=== PATIENT | male | born 1960 | race Two or more races ===

== ENCOUNTER 2018-01-17 10:50 | Inpatient (IN) | payer OTHER ==
[2018-01-17] MEDS ORDERED: CEFTRIAXONE 1,000 MG in DEXTROSE 5%-WATER - 50 ML IVPB ONE (12:32)
[2018-01-17 12:35] LABS: ALBUMIN 3.1 g/dl (3.5-5.0); ALK PHOS 126 U/L (32-92); ANION GAP 11 MMOL/L (8-16); BILIRUBIN,TOTAL 0.4 mg/dl (0.2-1.0); BLOOD UREA NITROGEN 12 mg/dl (7-18); CHLORIDE 98 mmol/L (98-107); CO2 22 mmol/L (22-28); CREATININE 1.1 mg/dl (0.6-1.3); GLUCOSE,RANDOM 385 mg/dl (74-106); POTASSIUM 3.7 mmol/L (3.5-5.1); SGOT/AST 28 U/L (10-42); SGPT/ALT 35 U/L (10-40); SODIUM 131 mmol/L (136-145); TOT PROT 6.8 g/dl (6.4-8.3)
--- NOTE | 2018-01-17 12:48 | PDOC ---
History of Present Illness - General Chief Complaint: Respiratory Stated Complaint: cough Time Seen by Provider: 01/17/18 11:06 History Source: Patient Exam Limitations: No Limitations - History of Present Illness Initial Comments: 01/17/18 12:43 CHIEF COMPLAINT: Fever, chills, cough, and right-sided pleuritic chest pain for 4 days HISTORY OF PRESENT ILLNESS: Patient is a 57-year-old man with a history of hypertension, diabetes, and asthma, who presents complaining of fever and cough with right-sided pleuritic chest pain. Patient states he has had recurrent pneumonia in the past. He is concerned that these symptoms feel the same. On he developed fever, chills, and sweats. He did not take his temperature. He saw his primary physician Dr. Tripathi on Thursday. Blood work and a chest x-ray was performed. He is waiting to get the results. He was started on azithromycin at that time. There are no GI symptoms. No nausea or vomiting. No diarrhea. Positive mild throat discomfort and ear congestion. REVIEW OF SYSTEMS: GENERAL/CONSTITUTIONAL: Positive fever and chills. No weight change. HEAD, EYES, EARS, NOSE AND THROAT: No visual symptoms. Positive ear congestion. Mild sore throat. CARDIOVASCULAR: Pleuritic Right anterior chest pain on coughing or on deep breath. No shortness of breath. RESPIRATORY: Positive cough. No sputum production. No hemoptysis. No shortness of breath. GASTROINTESTINAL: No nausea, vomiting, diarrhea or constipation. No rectal bleeding. GENITOURINARY: No dysuria, frequency, or change in urination. MUSCULOSKELETAL: No joint or muscle swelling or pain. No neck or back pain. SKIN AND BREASTS: No rash or easy bruising. NEUROLOGIC: No headache, vertigo, loss of consciousness, or loss of sensation. PSYCHIATRIC: No depression or anxiety. ENDOCRINE: No increased thirst. No abnormal weight change. HEMATOLOGIC/LYMPHATIC: No anemia, easy bleeding, or history of blood clots. ALLERGIC/IMMUNOLOGIC: No hives or skin allergy. No latex allergy. Past History - Past Medical History Allergies/Adverse Reactions: Allergies Allergy/AdvReac Type Severity Reaction Status Date / Time No Known Drug Allergies Allergy Verified 01/17/18 10:58 DUST AdvReac Uncoded 01/17/18 10:58 Home Medications: Ambulatory Orders Acetaminophen 650 mg PO Q6H PRN 01/17/18 Albuterol Sulfate Inhaler - [Ventolin Hfa Inhaler -] 2 inh PO TID 01/17/18 Amlodipine Besylate [Norvasc -] 5 mg PO DAILY 01/17/18 Atorvastatin Ca [Lipitor] 20 mg PO DAILY 01/17/18 Azithromycin 250 mg PO DAILY 01/17/18 Cyanocobalamin (Vitamin B-12) [Vitamin B-12] 1,000 mcg PO DAILY 01/17/18 Fluticasone Propionate 2 inh IH BID 01/17/18 Folic Acid 1 mg PO DAILY 01/17/18 Ibuprofen [Motrin -] 400 mg PO TID PRN 01/17/18 Ramipril [Altace] 5 mg PO DAILY 01/17/18 Anemia: No Asthma: Yes Cancer: No Cardiac Disorders: No CVA: No COPD: No CHF: No Dementia: No Diabetes: Yes GI Disorders: No Disorders: No HTN: Yes Hypercholesterolemia: No Liver Disease: No Seizures: No Thyroid Disease: No - Surgical History Abdominal Surgery: No Appendectomy: No Cardiac Surgery: No Cholecystectomy: No Lung Surgery: No Neurologic Surgery: No Orthopedic Surgery: No - Suicide/Smoking/Psychosocial Hx Smoking History: Unknown if ever smoked Have you smoked in the past 12 months: No Information on smoking cessation initiated: No Hx Alcohol Use: No Drug/Substance Use Hx: No Substance Use Type: None Hx Substance Use Treatment: No *Physical Exam - Vital Signs Last Vital Signs Temp Pulse Resp BP Pulse Ox 98.9 F 121 H 22 H 142/76 99 01/17/18 10:51 01/17/18 10:51 01/17/18 10:51 01/17/18 10:51 01/17/18 10:51 - Physical Exam Comments: 01/17/18 12:48 GENERAL: The patient is awake, alert, and fully oriented, in no acute distress. He speaks full sentences and has no respiratory distress. HEAD: Normal with no signs of trauma. EYES: Pupils equal, round and reactive to light, extraocular movements intact, sclera anicteric, conjunctiva clear. ENT: Ears normal, nares patent, oropharynx clear without exudates. Mucous membranes in the mouth are slightly dry. NECK: Normal range of motion, supple without lymphadenopathy, JVD, or masses. LUNGS: Expiratory rhonchi bilaterally, right greater than left. No crackles. No expiratory wheezes. Positive splinting with deep inspiration due to right anterior pleuritic chest pain. No chest wall tenderness. HEART: Regular rate and rhythm, normal S1 and S2 without murmur, rub or gallop. ABDOMEN: Soft, nontender, normoactive bowel sounds. No guarding, no rebound. No masses. EXTREMITIES: Normal range of motion, no edema. No clubbing or cyanosis. No cords, erythema, or tenderness. NEUROLOGICAL: Cranial nerves II through XII grossly intact. Normal speech, normal gait. PSYCH: Normal mood, normal affect. SKIN: Warm, Dry, normal turgor, no rashes or lesions noted. 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 He presents complaining of 4 days of fever, chills, cough with no significant sputum production, and right anterior pleuritic chest pain. He was seen by his primary physician Dr. Tripathi and started on azithromycin. He continues to get worse so he came to the emergency department. On examination, he appears comfortable. He has right anterior pleuritic pain and splinting with deep inspiration or coughing. His breath sounds are notable for rhonchi right greater than left. There are no crackles or wheezes. Laboratory studies are notable for increased white blood cell count to 13.9. Mild anemia with hemoglobin of 11.0. Chemistry is notable for mild hyponatremia at 131, and hyperglycemia at 385. No function is normal. Chest x-ray on Thursday was notable for chronic right middle lobe collapse, which has been present on prior films as long as 36 months ago. Today the chest x- ray looks worse with increased right sided infiltrate as well as new left-sided infiltrate. Impression: Community-acquired pneumonia in a patient with chronic right middle lobe collapse and prior episodes of pneumonia. The patients with this picture typically are at increased risk for chronic bronchiectasis. Patient has never had a pulmonary workup or a chest CT scan per his report. His last episode of pneumonia was 2 years ago. Plan: Admit for treatment of community acquired pneumonia. Patient had blood cultures done and was started on ceftriaxone and Levaquin. He may be at possible increased risk for Pseudomonas if he does in fact have bronchiectasis, so would culture sputum for bacterial culture and would get a CT scan of the chest tomorrow to evaluate for possible bronchiectasis in the right middle lobe. The Levaquin will cover pseudomonas, however, if he does in fact machine turner to have confirmed pseudomonas or if he does not respond well to Levaquin and ceftriaxone, consider ID consult for double pseudomonal coverage. Flu swab sent and pending. Patient will be admitted to a single room pending results. Laboratory Results - last 24 hr 01/17/18 01/17/18 01/17/18 12:03 12:03 12:03 WBC 13.9 H RBC 5.23 Hgb 11.0 L Hct 34.8 L MCV 66.6 L MCH 21.0 L MCHC 31.6 L RDW 16.5 H D Plt Count 421 D MPV 8.4 Absolute Neuts (auto) 11.6 Neutrophils % 83.8 H Lymphocytes % 7.0 L D Monocytes % 7.9 Eosinophils % 1.1 Basophils % 0.2 Sodium 131 L Potassium 3.7 Chloride 98 Carbon Dioxide 22 Anion Gap 11 BUN 12 Creatinine 1.1 Creat Clearance w eGFR > 60 Random Glucose 385 H* D Calcium 8.0 L Total Bilirubin 0.4 AST 28 D ALT 35 Alkaline Phosphatase 126 H Troponin I < 0.03 Total Protein 6.8 Albumin 3.1 L *DC/Admit/Observation/Transfer Diagnosis at time of Disposition: Community acquired bacterial pneumonia - Discharge Dispostion Condition at time of disposition: Stable Decision to Admit order: Yes Decision to Admit order Date/Time: 01/17/18 13:52 Mariano attending, discussed with [facility] for admission. - Referrals - Patient Instructions - Post Discharge Activity
[2018-01-17] MEDS ORDERED: SODIUM CHLORIDE 1,000 ML IV STA ×4 (12:50→20:37)
[2018-01-17 12:51] LABS: BASO % 0.2 % (0-2.0); EOS % 1.1 % (0-4.5); HEMATOCRIT 34.8 % (35.4-49); MCHC 31.6 g/dl (32.0-35.9); MEAN CELL VOLUME 66.6 fl (80-96); MEAN PLT VOLUME 8.4 fl (7.5-11.1); MONO % 7.9 % (3.8-10.2); NEUT % 83.8 % (42.8-82.8); PLATELET COUNT 421 K/MM3 (134-434); RBC 5.23 M/mm3 (4.00-5.60); RDW 16.5 % (11.9-15.9); WHITE BLOOD COUNT 13.9 K/mm3 (4.0-10.8)
[2018-01-17] MEDS ORDERED: Insulin (LOG) Aspart 100 UNITS/ML VIAL SQ ONE (12:51)
[2018-01-17] MEDS ORDERED: ACETAMINOPHEN 325 MG TABLET (FP) PO ONE (13:32)
[2018-01-17] MEDS ORDERED: IBUPROFEN 600 MG TABLET (FP) PO ONE ×2 (14:19→14:24)
[2018-01-17 14:35] LABS: ANION GAP 9 MMOL/L (8-16); BLOOD UREA NITROGEN 12 mg/dl (7-18); CALCIUM 7.4 mg/dl (8.4-10.2); CHLORIDE 101 mmol/L (98-107); CO2 20 mmol/L (22-28); POTASSIUM 3.6 mmol/L (3.5-5.1); SODIUM 130 mmol/L (136-145)
[2018-01-17] MEDS ORDERED: ALBUTEROL SO4 2.5/IPRATROPIUM 0.5 INH SOL 3 ML VIAL.NEB. NEB ONE ×2 (14:35→14:36)
[2018-01-17 14:46] LABS: GLUCOSE,RANDOM 322 mg/dl (74-106)
[2018-01-17 14:57] LABS: URINE APPEARANCE Clear; URINE BILIRUBIN Negative (NEGATIVE); URINE COLOR Yellow; URINE GLUCOSE (UA) 2+ (NEGATIVE); URINE KETONE Negative (NEGATIVE); URINE LEUK ESTERASE Negative (NEGATIVE); URINE NITRITE Negative (NEGATIVE); URINE PROTEIN 1+ (NEGATIVE); URINE UROBILINOGEN 0.2 (0.2-1.0)
--- NOTE | 2018-01-17 15:12 | HP ---
CHIEF COMPLAINT: Fever, cough, upper right chest pain PCP: Dr. Chaney HISTORY OF PRESENT ILLNESS: Patient is a 57-year-old man with a PMH significant for HTN, NIDDM, chronic right middle lobe collapse, and asthma, who presents complaining of fever and non-productive cough with right-sided pleuritic chest pain. Patient states he has had recurrent pneumonia in the past. He is concerned that these symptoms feel the same. On he developed fever, chills, and sweats. He did not take his temperature. He saw his primary physician Dr. Chaney on Thursday. Blood work and a chest x-ray was performed. He is waiting to get the results. He was started on azithromycin at that time. His right-sided chest pain and cough continued to worsen so he came to the ED today. There are no GI symptoms. No nausea or vomiting. No diarrhea. Positive mild throat discomfort and ear congestion. 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 Smoking: never Alcohol: no Drugs: no Family History: Allergies No Known Drug Allergies Allergy (Verified 01/17/18 10:58) DUST Adverse Reaction (Uncoded 01/17/18 10:58) Home Medications Medication Instructions Recorded Acetaminophen 650 mg PO Q6H PRN 01/17/18 Albuterol Sulfate Inhaler - 2 inh PO TID 01/17/18 [Ventolin Hfa Inhaler -] Amlodipine Besylate [Norvasc -] 5 mg PO DAILY 01/17/18 Atorvastatin Ca [Lipitor] 20 mg PO DAILY 01/17/18 Azithromycin 250 mg PO DAILY 01/17/18 Cyanocobalamin (Vitamin B-12) 1,000 mcg PO DAILY 01/17/18 [Vitamin B-12] Fluticasone Propionate 2 inh IH BID 01/17/18 Folic Acid 1 mg PO DAILY 01/17/18 Ibuprofen [Motrin -] 400 mg PO TID PRN 01/17/18 Ramipril [Altace] 5 mg PO DAILY 01/17/18 REVIEW OF SYSTEMS CONSTITUTIONAL: +fever, chills, malaise Absent: diaphoresis, generalized weakness, loss of appetite, weight change HEENT: Absent: rhinorrhea, nasal congestion, throat pain, throat swelling, difficulty swallowing, mouth swelling, ear pain, eye pain, visual changes CARDIOVASCULAR: Absent: chest pain, syncope, palpitations, irregular heart rate, lightheadedness , peripheral edema RESPIRATORY: +cough, upper right-side pleuritic-type chest pain Absent: shortness of breath, dyspnea with exertion, orthopnea, wheezing, stridor , hemoptysis GASTROINTESTINAL: Absent: abdominal pain, abdominal distension, nausea, vomiting, diarrhea, constipation, melena, hematochezia GENITOURINARY: Absent: dysuria, frequency, urgency, hesitancy, hematuria, flank pain, genital pain MUSCULOSKELETAL: Absent: myalgia, arthralgia, joint swelling, back pain, neck pain SKIN: Absent: rash, itching, pallor HEMATOLOGIC/IMMUNOLOGIC: Absent: easy bleeding, easy bruising, lymphadenopathy, frequent infections ENDOCRINE: Absent: unexplained weight gain, unexplained weight loss, heat intolerance, cold intolerance NEUROLOGIC: Absent: headache, focal weakness or paresthesias, dizziness, unsteady gait, seizure, mental status changes, bladder or bowel incontinence PSYCHIATRIC: Absent: anxiety, depression, suicidal or homicidal ideation, hallucinations. PHYSICAL EXAMINATION Vital Signs - 24 hr 01/17/18 01/17/18 01/17/18 10:51 12:55 14:18 Temperature 98.9 F 102.4 F H 101.2 F H Pulse Rate 121 H Pulse Rate [ 130 H 126 H Right] Respiratory 22 H 20 22 H Rate Blood Pressure 142/76 Blood Pressure 125/69 [Right Arm] O2 Sat by Pulse 99 98 97 Oximetry (%) GENERAL: Awake, alert, and fully oriented, ill appearing. HEAD: Normal with no signs of trauma. EYES: Pupils equal, round and reactive to light, extraocular movements intact, sclera anicteric, conjunctiva clear. No lid lag. EARS, NOSE, THROAT: Ears normal, nares patent, oropharynx clear without exudates. Dry mucous membranes. NECK: Normal range of motion, supple without lymphadenopathy, JVD, or masses. LUNGS: Expiratory wheezing heard anteriorly bilaterally; +coughing HEART: Regular rate and rhythm, S1 and S2 ABDOMEN: Soft, nontender, not distended, normoactive bowel sounds, no guarding, no rebound MUSCULOSKELETAL: Normal range of motion at all joints. No bony deformities or tenderness. No CVA tenderness. UPPER EXTREMITIES: 2+ pulses, warm, well-perfused. No cyanosis. No clubbing. No peripheral edema. LOWER EXTREMITIES: 2+ pulses, warm, well-perfused. No calf tenderness. No peripheral edema. NEUROLOGICAL: Cranial nerves II-XII intact. Normal speech. Laboratory Results - last 24 hr 01/17/18 01/17/18 01/17/18 12:03 12:03 12:03 WBC 13.9 H RBC 5.23 Hgb 11.0 L Hct 34.8 L MCV 66.6 L MCH 21.0 L MCHC 31.6 L RDW 16.5 H D Plt Count 421 D MPV 8.4 Absolute Neuts (auto) 11.6 Neutrophils % 83.8 H Lymphocytes % 7.0 L D Monocytes % 7.9 Eosinophils % 1.1 Basophils % 0.2 Sodium 131 L Potassium 3.7 Chloride 98 Carbon Dioxide 22 Anion Gap 11 BUN 12 Creatinine 1.1 Creat Clearance w eGFR > 60 Random Glucose 385 H* D Lactic Acid 2.5 H* Calcium 8.0 L Total Bilirubin 0.4 AST 28 D ALT 35 Alkaline Phosphatase 126 H Troponin I Total Protein 6.8 Albumin 3.1 L 01/17/18 01/17/18 12:03 14:18 WBC RBC Hgb Hct MCV MCH MCHC RDW Plt Count MPV Absolute Neuts (auto) Neutrophils % Lymphocytes % Monocytes % Eosinophils % Basophils % Sodium 130 L Potassium 3.6 Chloride 101 Carbon Dioxide 20 L Anion Gap 9 BUN 12 Creatinine 1.0 Creat Clearance w eGFR > 60 Random Glucose 322 H* Lactic Acid Calcium 7.4 L Total Bilirubin AST ALT Alkaline Phosphatase Troponin I < 0.03 Total Protein Albumin ASSESSMENT/PLAN 57 year-old man with a PMH significant for HTN, NIDDM, chronic right middle lobe collapse, recurrent pneumonia, and asthma. Admitted for severe sepsis secondary to community acquired pneumonia. Severe sepsis secondary to community-acquired pneumonia Asthma --bilateral infiltrates; meets severe sepsis criteria --repeat lactic acid trending up, give another 2L bolus NS --blood cultures collected and sent; flu negative --continue ceftriaxone, levofloxacin --duonebs q4h scheduled --titrate O2 to SpO2>93% --strict I&Os Chronic right middle lobe collapse --per Dr. Rivers, right middle lobe collapse seen on 02/04/15 CXR and on today's CXR --CT chest tomorrow (machine down today) --if bronchiectasis, or if does not respond well to ceftriaxone and levofloxacin, consider ID consult for double pseudomonal coverage --sputum culture ordered --pulmonary consult NIDDM Hyperglycemia --Novolog sliding scale coverage FEN Fluids: NS @ 100mL/hr Electrolytes: replete as indicated Nutrition: diabetic diet DVT prophylaxis: subq lovenox Dispo: continues to require inpatient care. Full code. Visit type - Emergency Visit Emergency Visit: Yes ED Registration Date: 01/17/18 Care time: The patient presented to the Emergency Department on the above date and was hospitalized for further evaluation of their emergent condition. - New Patient This patient is new to me today: Yes Date on this admission: 01/17/18 - Critical Care Critical Care patient: Yes Total Critical Care Time (in minutes): 60 Critical Care Statement: The care of this patient involved high complexity decision making to prevent further life threatening deterioration of the patient 's condition and/or to evaluate & treat vital organ system(s) failure or risk of failure.
[2018-01-17 15:41] LABS: EPI CELLS 1+ /HPF; URINE BACTERIA NONE SEEN /hpf (NEGATIVE); URINE RBC 0-2 /hpf (0-3); URINE WBC 0-2 (0-2)
[2018-01-17] MEDS ORDERED: ALBUTEROL SO4 2.5/IPRATROPIUM 0.5 INH SOL 3 ML VIAL.NEB. NEB SCH (16:00)
[2018-01-17] MEDS ORDERED: SODIUM CHLORIDE 1,000 ML IV SCH (16:30)
[2018-01-17 18:34] VITALS: BMI 33.3
[2018-01-17] MEDS ORDERED: ALBUTEROL SO4 2.5/IPRATROPIUM 0.5 INH SOL 3 ML VIAL.NEB. NEB STA (19:07)
[2018-01-17] MEDS: ALBUTEROL SO4 2.5/IPRATROPIUM 0.5 INH SOL 3 ML VIAL.NEB. NEB SCH (20:31)
[2018-01-17] MEDS ORDERED: INSULIN (NOVOLOG) ASPART 100 UNITS/ML 10ML VIAL ONE (22:03)
[2018-01-17] MEDS: INSULIN (NOVOLOG) ASPART 100 UNITS/ML 10ML VIAL SQ SCH (22:45)
[2018-01-18] MEDS ORDERED: guaiFENesin/CODEINE 10 ML UNIT-DOSE CUPS PO ONE (02:01)
[2018-01-18] MEDS: ALBUTEROL SO4 2.5/IPRATROPIUM 0.5 INH SOL 3 ML VIAL.NEB. NEB SCH ×6 (02:15→20:00)
--- NOTE | 2018-01-18 08:01 | PN ---
Physical Exam: SUBJECTIVE: Patient seen and examined, reports ongoing moist cough with shortness of breath, tmax 102.4, denies any chest pain. patient is ambulatory throughout nursing station, patient denies any dyspnea upon exertion. OBJECTIVE: patient is a 57 y/o male with a past medical history of HTN, NIDDM, chronic right middle lobe lung collapse, and asthma. patient was admitted from the emergency department for sepsis secondary to right middle lobe PNA. Vital Signs Period Temp Pulse Resp BP Sys/Baum Pulse Ox Last 24 Hr 98.9 F-102.4 F 98-139 17-22 120-142/56-76 97-99 GENERAL: The patient is awake, alert, and fully oriented, in no acute distress. HEAD: Normal with no signs of trauma. EYES: PERRL, extraocular movements intact, sclera anicteric, conjunctiva clear. No ptosis. ENT: Ears normal, nares patent, oropharynx clear without exudates, moist mucous membranes. NECK: Trachea midline, full range of motion, supple. LUNGS: right lower lobe diminished to base, crackles to right apex, persistent dry cough noted, no wheezes, no accessory muscle use. HEART: Regular rate and rhythm, S1, S2 without murmur, rub or gallop. ABDOMEN: Soft, nontender, nondistended, normoactive bowel sounds, no guarding, no rebound, no hepatosplenomegaly, no masses. EXTREMITIES: 2+ pulses, warm, well-perfused, no edema. NEUROLOGICAL: Cranial nerves II through XII grossly intact. Normal speech, steady gait noted. PSYCH: Normal mood, normal affect. SKIN: Warm, dry, normal turgor, no rashes or lesions noted Laboratory Results - last 24 hr CBC WBC 13.1 K/mm3 (4.0-10.8) H 01/18/18 07:30 RBC 4.82 M/mm3 (4.00-5.60) 01/18/18 07:30 Hgb 10.2 GM/dl (11.7-16.9) L 01/18/18 07:30 Hct 31.9 % (35.4-49) L 01/18/18 07:30 MCV 66.1 fl (80-96) L 01/18/18 07:30 MCH 21.2 pg (25.7-33.7) L 01/18/18 07:30 MCHC 32.1 g/dl (32.0-35.9) 01/18/18 07:30 RDW 16.2 % (11.9-15.9) H 01/18/18 07:30 Plt Count 387 K/MM3 (134-434) 01/18/18 07:30 MPV 8.0 fl (7.5-11.1) 01/18/18 07:30 Absolute Neuts (auto) 10.9 K/mm3 01/18/18 07:30 Neutrophils % No Result Required. 01/18/18 07:30 Neutrophils % (Manual) 82.0 % (42.8-82.8) 01/18/18 07:30 Band Neutrophils % 2.0 % (0-10) 01/18/18 07:30 Lymphocytes % No Result Required. 01/18/18 07:30 Lymphocytes % (Manual) 11.0 % (8-40) 01/18/18 07:30 Monocytes % 7.9 % (3.8-10.2) 01/17/18 12:03 Monocytes % (Manual) 4 % (3.8-10.2) 01/18/18 07:30 Eosinophils % 1.1 % (0-4.5) 01/17/18 12:03 Basophils % 0.2 % (0-2.0) 01/17/18 12:03 Metamyelocytes 1 % (0-2) 01/18/18 07:30 Platelet Estimate Slt increase 01/18/18 07:30 Polychromasia 1+ 01/18/18 07:30 Poikilocytosis 1+ 01/18/18 07:30 Anisocytosis 1+ 01/18/18 07:30 Ovalocytes 1+ 01/18/18 07:30 CMP Sodium 135 mmol/L (136-145) L 01/18/18 07:30 Potassium 3.5 mmol/L (3.5-5.1) 01/18/18 07:30 Chloride 105 mmol/L (98-107) 01/18/18 07:30 Carbon Dioxide 20 mmol/L (22-28) L 01/18/18 07:30 Anion Gap 10 MMOL/L (8-16) 01/18/18 07:30 BUN 8 mg/dl (7-18) 01/18/18 07:30 Creatinine 1.0 mg/dl (0.6-1.3) 01/18/18 07:30 Creat Clearance w eGFR > 60 (>60) 01/18/18 07:30 POC Glucometer 202 UNITS (80-120) 01/18/18 06:32 Random Glucose 211 mg/dl (74-106) H D 01/18/18 07:30 Lactic Acid 3.2 mmol/L (0.4-2.0) H* 01/18/18 07:30 Calcium 7.4 mg/dl (8.4-10.2) L 01/18/18 07:30 Magnesium 1.7 mg/dL (1.8-2.4) L 01/18/18 07:30 Total Bilirubin 0.6 mg/dl (0.2-1.0) 01/18/18 07:30 AST 39 U/L (10-42) D 01/18/18 07:30 ALT 32 U/L (10-40) 01/18/18 07:30 Alkaline Phosphatase 120 U/L (32-92) H 01/18/18 07:30 Troponin I < 0.03 ng/ml (0.00-0.06) 01/17/18 12:03 Total Protein 6.3 g/dl (6.4-8.3) L 01/18/18 07:30 Albumin 2.6 g/dl (3.5-5.0) L 01/18/18 07:30 Active Medications Generic Name Dose Route Start Last Admin Trade Name Freq PRN Reason Stop Dose Admin Acetaminophen 650 mg 01/17/18 15:08 Tylenol - PO Q6H PRN FEVER Albuterol/Ipratropium 1 amp 01/17/18 20:00 01/18/18 07:52 Duoneb - NEB 1 amp RQ4H [facility] Administration Amlodipine Besylate 5 mg 01/18/18 10:00 Norvasc - PO DAILY [facility] Atorvastatin Calcium 20 mg 01/18/18 22:00 Lipitor - PO HS [facility] Enoxaparin Sodium 40 mg 01/18/18 10:00 Lovenox - SQ DAILY [facility] Folic Acid 1 mg 01/18/18 10:00 Folic Acid - PO DAILY [facility] Levofloxacin 750 mg in 150 mls @ 100 mls/hr 01/18/18 10:00 Levaquin 750 Mg Premixed Ivpb - IVPB DAILY [facility] Protocol Sodium Chloride 1,000 mls @ 100 mls/hr 01/17/18 16:30 01/17/18 16:37 Normal Saline - IV 100 mls/hr ASDIR [facility]INE Administration Ceftriaxone Sodium 1 gm in 50 mls @ 100 mls/hr 01/18/18 10:00 Rocephin 1gm Ivpb (Pre-Docked) IVPB DAILY [facility] Protocol Insulin Aspart 0 units 01/17/18 22:00 01/17/18 22:45 Novolog Vial SQ Not Given ACHS [facility] Protocol Ramipril 5 mg 01/18/18 10:00 Altace - PO DAILY [facility] Microbiology 01/17/18 12:50 Nasopharyngeal Swab Influenza Types A,B Antigen - Final, negative 01/17/18 12:50 Nasopharyngeal Swab - Final, negative IMAGING cxr (01/17/18): congestive changes and right base infilitrate ASSESSMENT/PLAN: 1) Severe sepsis likely secondary to community-acquired pneumonia -pending blood, urine, sputum cultures and urine antigens - continue rocephin and levaquin day 1 - trend wbc and fever curve, repeat lactic acid this am 3.4, will continue IVF, repeat lactic acid at 12pm 2) pulm Right middle lob PNA asthma excerbation - failed outpatient therapy (zithromax), will continue levaquin and rocephin - start solumedrol 40mg tid with taper as appropriate - ct of chest pending - keep spo2 above 92% with supplemental O2 - appreciate pulmonary input 3) endo NIDDM Hyperglycemia - pending hgb a1c, -Novolog sliding scale coverage FEN Fluids: NS @ 100mL/hr Electrolytes: replete as indicated Nutrition: diabetic diet DVT prophylaxis: subq lovenox Visit type - Emergency Visit Emergency Visit: Yes ED Registration Date: 01/17/18 Care time: The patient presented to the Emergency Department on the above date and was hospitalized for further evaluation of their emergent condition. - New Patient This patient is new to me today: No - Critical Care Critical Care patient: No - Discharge Referral Referred to [facility] Med [facility] No
[2018-01-18 08:08] LABS: HEMATOCRIT 31.9 % (35.4-49); HEMOGLOBIN 10.2 GM/dl (11.7-16.9); MCH 21.2 pg (25.7-33.7); MCHC 32.1 g/dl (32.0-35.9); MEAN CELL VOLUME 66.1 fl (80-96); PLATELET COUNT 387 K/MM3 (134-434); RBC 4.82 M/mm3 (4.00-5.60); RDW 16.2 % (11.9-15.9); WHITE BLOOD COUNT 13.1 K/mm3 (4.0-10.8)
[2018-01-18 08:17] LABS: ALBUMIN 2.6 g/dl (3.5-5.0); ALK PHOS 120 U/L (32-92); ANION GAP 10 MMOL/L (8-16); BILIRUBIN,TOTAL 0.6 mg/dl (0.2-1.0); BLOOD UREA NITROGEN 8 mg/dl (7-18); CALCIUM 7.4 mg/dl (8.4-10.2); CHLORIDE 105 mmol/L (98-107); CO2 20 mmol/L (22-28); GLUCOSE,RANDOM 211 mg/dl (74-106); MAGNESIUM 1.7 mg/dL (1.8-2.4); POTASSIUM 3.5 mmol/L (3.5-5.1); SGOT/AST 39 U/L (10-42); SGPT/ALT 32 U/L (10-40); SODIUM 135 mmol/L (136-145); TOT PROT 6.3 g/dl (6.4-8.3)
[2018-01-18] MEDS ORDERED: MAGNESIUM SULFATE 2 GM in SODIUM CHLORIDE 100 ML IVPB ONE (08:47)
[2018-01-18] MEDS: ACETAMINOPHEN 325 MG TABLET (FP) PO PRN (08:59)
[2018-01-18] MEDS: RAMIPRIL 5 MG CAPSULE (FP) PO SCH (08:59)
[2018-01-18] MEDS: amLODIPine BESYLATE 5 MG TABLET (FP) PO SCH (09:00)
[2018-01-18] MEDS: FOLIC ACID 1 MG TABLET (FP) PO SCH (09:00)
[2018-01-18] MEDS: CEFTRIAXONE 1 GM/50 ML BAG IVPB SCH (09:01)
[2018-01-18] MEDS: guaiFENesin 600 MG TABLET.ER (FP) PO SCH ×2 (09:01→21:11)
[2018-01-18] MEDS: ENOXAPARIN NA (PORCINE) 40 MG/0.4 ML DISP.SYRIN SQ SCH (09:01)
[2018-01-18] MEDS: methylPREDNISolone NA SUCC 40 MG/1 ML VIAL IVPUSH SCH ×2 (09:01→19:01)
[2018-01-18] MEDS ORDERED: MAGNESIUM SULF 50% (8.12 MEQ/2 ML-1 GM VIAL) IVPB ONE (09:30)
[2018-01-18] MEDS ORDERED: MAGNESIUM SULFATE IN WATER 2 GM/50 ML IVPB IVPB ONE (09:30)
[2018-01-18] MEDS: INSULIN (NOVOLOG) ASPART 100 UNITS/ML 10ML VIAL SQ SCH ×4 (09:40→21:22)
[2018-01-18 09:49] LABS: ANISOCYTOSIS 1+; OVALOCYTE 1+; PLATELET ESTIMATE SLT INCREASE
[2018-01-18] MEDS ORDERED: CEFTRIAXONE 1 GM in DEXTROSE 5%-WATER - 50 ML IVPB SCH (10:00)
--- NOTE | 2018-01-18 10:37 | EKG ---
Test Reason : Blood Pressure : / mmHG Vent. Rate : 119 BPM Atrial Rate : 119 BPM P-R Int : 136 ms QRS Dur : 082 ms QT Int : 312 ms P-R-T Axes : 046 012 038 degrees QTc Int : 438 ms SINUS TACHYCARDIA OTHERWISE NORMAL ECG NO PREVIOUS ECGS AVAILABLE Confirmed by TATE CAGLE MD ([id number]) on 01/18/2018 10:36:58 AM Referred By: ROSA LOZA Confirmed By:TATE CAGLE MD
[2018-01-18] MEDS: FAMOTIDINE 20 MG TABLET PO SCH ×2 (11:53→21:11)
[2018-01-18] MEDS: SODIUM CHLORIDE 0.9%/KCL 20 MEQ/1,000 ML INFUS.BAG IV SCH (13:50)
[2018-01-18] MEDS ORDERED: AZITHROMYCIN IVPB 500 MG/250 ML BAG IVPB ONE (15:00)
[2018-01-18] MEDS ORDERED: INSULIN (NOVOLOG) ASPART 100 UNITS/ML 10ML VIAL ONE ×2 (16:42→21:18)
--- NOTE | 2018-01-18 16:49 | CON.PULM ---
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 Patient states he has had recurrent pneumonia in the past. He is concerned that these symptoms feel the same. On he developed fever, chills, and sweats he states he felt well on Thursday. He did not take his temperature. He saw his primary physician Dr. Tripathi on Thursday. Blood work and a chest x-ray was performed. He was started on azithromycin at that time. He came to ED because his symptoms progressed. There are no GI symptoms, no nausea or vomiting, no diarrhea. Positive mild throat discomfort and ear congestion. Patient is a poor informant likely due to mild language barrier. Denies recent travel or sick contacts. 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 No: AFIB Pulmonary: Yes: Asthma, Sleep Apnea (is likely ) Gastrointestinal: No: Ascites, GI Bleed Hepatobiliary: No: Cirrhosis Renal/: No: Renal Failure Heme/Onc: Yes: Anemia Psych: No: Addictions Endocrine: Yes: Diabetes Mellitus - Alcohol/Substance Use Hx Alcohol Use: No - Smoking History Smoking history: Never smoked Have you smoked in the past 12 months: No - Social History Usual Living Arrangement: With Spouse ADL: Independent Place of : Other History of Recent Travel: No Home Medications - Allergies Allergies/Adverse Reactions: Allergies Allergy/AdvReac Type Severity Reaction Status Date / Time No Known Drug Allergies Allergy Verified 01/17/18 10:58 DUST AdvReac Uncoded 01/17/18 10:58 - Home Medications Home Medications: Ambulatory Orders Acetaminophen 650 mg PO Q6H PRN 01/17/18 Albuterol Sulfate Inhaler - [Ventolin Hfa Inhaler -] 2 inh PO TID 01/17/18 Amlodipine Besylate [Norvasc -] 5 mg PO DAILY 01/17/18 Atorvastatin Ca [Lipitor] 20 mg PO DAILY 01/17/18 Azithromycin 250 mg PO DAILY 01/17/18 Cyanocobalamin (Vitamin B-12) [Vitamin B-12] 1,000 mcg PO DAILY 01/17/18 Fluticasone Propionate 2 inh IH BID 01/17/18 Folic Acid 1 mg PO DAILY 01/17/18 Ibuprofen [Motrin -] 400 mg PO TID PRN 01/17/18 Ramipril [Altace] 5 mg PO DAILY 01/17/18 Family Disease History - Family Disease History Family History: Unremarkable Review of Systems - Review of Systems Constitutional: reports: Fever, Loss of Appetite Eyes: denies: Blind Spots HENT: denies: Difficult Swallowing Neck: denies: Decreased ROM Cardiovascular: reports: Chest Pain (right anterior chest pain) Respiratory: reports: Cough, Exercise Intolerance, SOB, SOB on Exertion. denies : Hemoptysis Gastrointestinal: denies: Abdominal Pain Genitourinary: denies: Burning Breasts: reports: No Symptoms Reported Musculoskeletal: reports: No Symptoms Integumentary: reports: No Symptoms Neurological: reports: No Symptoms Endocrine: reports: Increased Thirst, Unexplained Weight Gain Hematology/Lymphatic: reports: No Symptoms Psychiatric: reports: No Symptoms Physical Exam Vital Sings: Vital Signs Temperature 98.0 F 01/18/18 13:00 Pulse Rate 118 H 01/18/18 13:00 Respiratory Rate 19 01/18/18 13:00 Blood Pressure 138/75 01/18/18 13:00 O2 Sat by Pulse Oximetry (%) 97 01/18/18 13:00 Constitutional: Yes: Anxious Eyes: Yes: EOM Intact HENT: Yes: Normocephalic Neck: Yes: Trachea Midline Cardiovascular: Yes: Tachycardia, S1, S2 Respiratory: Yes: Rales, Rhonchi Gastrointestinal: Yes: Normal Bowel Sounds, Abdomen, Obese Renal/: Yes: WNL Breast(s): Yes: WNL Musculoskeletal: Yes: WNL Extremities: Yes: WNL Edema: No Integumentary: Yes: WNL Neurological: Yes: Alert Labs: CBC, BMP 01/18/18 07:30 01/18/18 07:30 rest of labs reviewed Imaging - Results Chest X-ray: Report Reviewed, Image Reviewed EKG: Report Reviewed, Image Reviewed Problem List - Problems (1) Diabetes Code(s): E11.9 - TYPE 2 DIABETES MELLITUS WITHOUT COMPLICATIONS (2) Community acquired bacterial pneumonia Code(s): J15.9 - UNSPECIFIED BACTERIAL PNEUMONIA (3) Sepsis due to pneumonia Code(s): J18.9 - PNEUMONIA, UNSPECIFIED ORGANISM; A41.9 - SEPSIS, UNSPECIFIED ORGANISM (4) Anemia Code(s): D64.9 - ANEMIA, UNSPECIFIED (5) Lactic acid blood increased Code(s): R79.89 - OTHER SPECIFIED ABNORMAL FINDINGS OF BLOOD CHEMISTRY (6) Hypoalbuminemia Code(s): E88.09 - OTH DISORDERS OF PLASMA-PROTEIN METABOLISM, NEC (7) Hypomagnesemia Code(s): E83.42 - HYPOMAGNESEMIA (8) Hypocalcemia Code(s): E83.51 - HYPOCALCEMIA Assessment/Plan 57 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 Agree with panculture/empiric antibiotics/02 supplementation/bronchodilators/ isolation for now ppd/quant gold/hiv test/sputum for afb/culture and gram stain/ID consult. Of note is his anemia with microcytic indicies/hypoalbuminemia and rising lactic acid with poorly controlled diabetes. Will follow Farhan Espinal MD
[2018-01-18] MEDS: ATORVASTATIN CA 20 MG TABLET (FP) PO SCH (21:11)
[2018-01-18] MEDS: BUDESONIDE/FORMETEROL FUMARATE 80/4.5 mcg INHALER IH SCH (21:12)
[2018-01-19] MEDS: methylPREDNISolone NA SUCC 40 MG/1 ML VIAL IVPUSH SCH ×3 (02:00→17:30)
[2018-01-19] MEDS: ALBUTEROL SO4 2.5/IPRATROPIUM 0.5 INH SOL 3 ML VIAL.NEB. NEB SCH ×6 (03:38→22:12)
[2018-01-19] MEDS ORDERED: PT OWN MED DRAWER 7, Y5N ONE ×4 (04:20→22:10)
[2018-01-19] MEDS: INSULIN (NOVOLOG) ASPART 100 UNITS/ML 10ML VIAL SQ SCH ×4 (06:22→22:13)
[2018-01-19 08:07] LABS: BASO % 0.1 % (0-2.0); HEMATOCRIT 32.2 % (35.4-49); HEMOGLOBIN 9.8 GM/dl (11.7-16.9); LYMPH % 4.9 % (8-40); MCH 20.3 pg (25.7-33.7); MCHC 30.5 g/dl (32.0-35.9); MEAN CELL VOLUME 66.4 fl (80-96); MEAN PLT VOLUME 7.9 fl (7.5-11.1); MONO % 3.3 % (3.8-10.2); NEUT % 91.7 % (42.8-82.8); PLATELET COUNT 442 K/MM3 (134-434); RBC 4.85 M/mm3 (4.00-5.60); RDW 16.6 % (11.9-15.9); WHITE BLOOD COUNT 10.5 K/mm3 (4.0-10.8)
[2018-01-19 08:13] LABS: ANION GAP 9 MMOL/L (8-16); BLOOD UREA NITROGEN 15 mg/dl (7-18); CALCIUM 7.5 mg/dl (8.4-10.2); CHLORIDE 102 mmol/L (98-107); CO2 22 mmol/L (22-28); CREATININE 0.9 mg/dl (0.6-1.3); GLUCOSE,RANDOM 297 mg/dl (74-106); MAGNESIUM 2.3 mg/dL (1.8-2.4); PHOSPHOROUS 2.9 mg/dl (2.5-4.6); POTASSIUM 3.5 mmol/L (3.5-5.1); SODIUM 133 mmol/L (136-145)
[2018-01-19] MEDS: CEFTRIAXONE 1 GM/50 ML BAG IVPB SCH (10:15)
[2018-01-19] MEDS: amLODIPine BESYLATE 5 MG TABLET (FP) PO SCH (10:16)
[2018-01-19] MEDS: FAMOTIDINE 20 MG TABLET PO SCH ×2 (10:16→22:12)
[2018-01-19] MEDS: BUDESONIDE/FORMETEROL FUMARATE 80/4.5 mcg INHALER IH SCH ×2 (10:16→22:12)
[2018-01-19] MEDS: ENOXAPARIN NA (PORCINE) 40 MG/0.4 ML DISP.SYRIN SQ SCH (10:16)
[2018-01-19] MEDS: RAMIPRIL 5 MG CAPSULE (FP) PO SCH (10:16)
[2018-01-19] MEDS: AZITHROMYCIN IVPB 250 MG in DEXTROSE 5%-WATER - 250 ML IVPB SCH (10:16)
[2018-01-19] MEDS: FOLIC ACID 1 MG TABLET (FP) PO SCH (10:16)
[2018-01-19] MEDS: guaiFENesin 600 MG TABLET.ER (FP) PO SCH ×2 (10:16→22:12)
--- NOTE | 2018-01-19 10:22 | PN ---
Progress Note, Physician History of Present Illness: pulmonary alert,no distress,dyspnea improving - Current Medication List Current Medications: Active Medications Acetaminophen (Tylenol -) 650 mg PO Q6H PRN PRN Reason: FEVER Last Admin: 01/18/18 08:59 Dose: 650 mg Albuterol/Ipratropium (Duoneb -) 1 amp NEB RQ4H [facility] Last Admin: 01/19/18 06:21 Dose: 1 amp Amlodipine Besylate (Norvasc -) 5 mg PO DAILY [facility] Last Admin: 01/18/18 09:00 Dose: 5 mg Atorvastatin Calcium (Lipitor -) 20 mg PO HS [facility] Last Admin: 01/18/18 21:11 Dose: 20 mg Budesonide/Formoterol Fumarate (Symbicort 80/4.5mcg -) 2 puff IH BID [facility] Last Admin: 01/18/18 21:12 Dose: 2 puff Enoxaparin Sodium (Lovenox -) 40 mg SQ DAILY [facility] Last Admin: 01/18/18 09:01 Dose: 40 mg Famotidine (Pepcid -) 20 mg PO BID [facility] Last Admin: 01/18/18 21:11 Dose: 20 mg Folic Acid (Folic Acid -) 1 mg PO DAILY [facility] Last Admin: 01/18/18 09:00 Dose: 1 mg Guaifenesin (Mucinex -) 1,200 mg PO BID [facility] Last Admin: 01/18/18 21:11 Dose: 1,200 mg Guaifenesin/Codeine Phosphate (Robitussin Ac -) 10 ml PO HS PRN PRN Reason: COUGH Ceftriaxone Sodium (Rocephin 1gm Ivpb (Pre-Docked)) 1 gm in 50 mls @ 100 mls/ hr IVPB DAILY [facility]; Protocol Last Admin: 01/18/18 09:01 Dose: 100 mls/hr Potassium Chloride/Sodium Chloride (Ns+20 Meq Kcl -) 20 meq in 1,000 mls @ 100 mls/hr IV ASDIR [facility] Last Admin: 01/18/18 13:50 Dose: 100 mls/hr Azithromycin 250 mg/ Dextrose 250 mls @ 250 mls/hr IVPB DAILY [facility] Insulin Aspart (Novolog Vial) 0 units SQ ACHS [facility]; Protocol Last Admin: 01/19/18 06:22 Dose: 6 unit Methylprednisolone Sodium Succinate (Solu-Medrol -) 40 mg IVPUSH Q8H-IV [facility] Last Admin: 01/19/18 02:00 Dose: 40 mg Ramipril (Altace -) 5 mg PO DAILY [facility] Last Admin: 01/18/18 08:59 Dose: 5 mg - Objective Vital Signs: Vital Signs Temperature 98.1 F 01/19/18 06:00 Pulse Rate 111 H 01/19/18 06:00 Respiratory Rate 20 01/19/18 06:00 Blood Pressure 134/64 01/19/18 06:00 O2 Sat by Pulse Oximetry (%) 100 01/19/18 02:00 Constitutional: Yes: Well Nourished, Calm Eyes: Yes: WNL HENT: Yes: WNL Neck: Yes: WNL Cardiovascular: Yes: Regular Rate and Rhythm, S1, S2 Respiratory: Yes: CTA Bilaterally Gastrointestinal: Yes: Normal Bowel Sounds, Soft Extremities: Yes: WNL Edema: No Labs: CBC, BMP 01/19/18 07:32 01/19/18 07:32 Assessment/Plan Problem List - Problems (1) Diabetes Code(s): E11.9 - TYPE 2 DIABETES MELLITUS WITHOUT COMPLICATIONS (2) Community acquired bacterial pneumonia Code(s): J15.9 - UNSPECIFIED BACTERIAL PNEUMONIA (3) Sepsis due to pneumonia Code(s): J18.9 - PNEUMONIA, UNSPECIFIED ORGANISM; A41.9 - SEPSIS, UNSPECIFIED ORGANISM (4) Anemia Code(s): D64.9 - ANEMIA, UNSPECIFIED (5) Lactic acid blood increased Code(s): R79.89 - OTHER SPECIFIED ABNORMAL FINDINGS OF BLOOD CHEMISTRY (6) Hypoalbuminemia Code(s): E88.09 - OTH DISORDERS OF PLASMA-PROTEIN METABOLISM, NEC (7) Hypomagnesemia Code(s): E83.42 - HYPOMAGNESEMIA (8) Hypocalcemia Code(s): E83.51 - HYPOCALCEMIA Assessment/Plan PNEUMONIA OBESITY ASTHMA LIKELY SLEEP APNEA PLAN ABX O2 NEEDED INHALED BRONCHODILATORS STEROID TAPER SLEEP STUDIES OUTPATIENT DR DE JESUS
[2018-01-19] MEDS ORDERED: INSULIN (NOVOLOG) ASPART 100 UNITS/ML 10ML VIAL ONE (11:53)
[2018-01-19] MEDS: SODIUM CHLORIDE 0.9%/KCL 20 MEQ/1,000 ML INFUS.BAG IV SCH (12:55)
--- NOTE | 2018-01-19 15:15 | PN ---
Physical Exam: SUBJECTIVE: Patient seen and examined; symptomatically improved. Consults from specialty services noted. No new issues reported from overnight. No other issues. 10 sys ROS done and negative aside from HPI OBJECTIVE: Vital Signs Period Temp Pulse Resp BP Sys/Baum Pulse Ox Last 24 Hr 97.7 F-99.2 F 105-123 18-20 127-138/64-74 97-100 GENERAL: The patient is awake, alert, and fully oriented, in no acute distress. HEAD: Normal with no signs of trauma. EYES: PERRL, extraocular movements intact, sclera anicteric, conjunctiva clear. No ptosis. ENT: Ears normal, nares patent, oropharynx clear NECK: Trachea midline, full range of motion, supple. LUNGS: Breath sounds equal, clear to auscultation aside from RLL with some crackles HEART: Regular rate and rhythm, S1, S2 without murmur, rub or gallop. ABDOMEN: Soft, nontender, nondistended, normoactive bowel sounds, no guarding, no rebound, no hepatosplenomegaly, no masses. EXTREMITIES: 2+ pulses, warm, well-perfused, no edema. NEUROLOGICAL: Cranial nerves II through XII grossly intact. Normal speech PSYCH: Normal mood, normal affect. Laboratory Results - last 24 hr 01/18/18 01/18/18 01/18/18 16:38 17:35 21:16 WBC RBC Hgb Hct MCV MCH MCHC RDW Plt Count MPV Absolute Neuts (auto) Neutrophils % Lymphocytes % Monocytes % Eosinophils % Basophils % Sodium Potassium Chloride Carbon Dioxide Anion Gap BUN Creatinine Creat Clearance w eGFR POC Glucometer 288 287 Random Glucose Lactic Acid Calcium Phosphorus Magnesium HIV 1&2 Antibody Screen Negative HIV P24 Antigen Negative 01/19/18 01/19/18 01/19/18 06:07 07:32 07:32 WBC 10.5 RBC 4.85 Hgb 9.8 L Hct 32.2 L MCV 66.4 L MCH 20.3 L MCHC 30.5 L RDW 16.6 H Plt Count 442 H MPV 7.9 Absolute Neuts (auto) 9.7 Neutrophils % 91.7 H Lymphocytes % 4.9 L D Monocytes % 3.3 L Eosinophils % 0.0 D Basophils % 0.1 Sodium 133 L Potassium 3.5 Chloride 102 Carbon Dioxide 22 Anion Gap 9 BUN 15 Creatinine 0.9 Creat Clearance w eGFR > 60 POC Glucometer 252 Random Glucose 297 H D Lactic Acid Calcium 7.5 L Phosphorus 2.9 Magnesium 2.3 HIV 1&2 Antibody Screen HIV P24 Antigen 01/19/18 01/19/18 07:32 12:20 WBC RBC Hgb Hct MCV MCH MCHC RDW Plt Count MPV Absolute Neuts (auto) Neutrophils % Lymphocytes % Monocytes % Eosinophils % Basophils % Sodium Potassium Chloride Carbon Dioxide Anion Gap BUN Creatinine Creat Clearance w eGFR POC Glucometer 378 Random Glucose Lactic Acid 2.1 H Calcium Phosphorus Magnesium HIV 1&2 Antibody Screen HIV P24 Antigen Active Medications Generic Name Dose Route Start Last Admin Trade Name Freq PRN Reason Stop Dose Admin Acetaminophen 650 mg 01/17/18 15:08 01/18/18 08:59 Tylenol - PO 650 mg Q6H PRN Administration FEVER Albuterol/Ipratropium 1 amp 01/17/18 20:00 01/19/18 13:00 Duoneb - NEB 1 amp RQ4H [facility] Administration Amlodipine Besylate 5 mg 01/18/18 10:00 01/19/18 10:16 Norvasc - PO 5 mg DAILY [facility] Administration Atorvastatin Calcium 20 mg 01/18/18 22:00 01/18/18 21:11 Lipitor - PO 20 mg HS [facility] Administration Budesonide/Formoterol Fumarate 2 puff 01/18/18 22:00 01/19/18 10:16 Symbicort 80/4.5mcg - IH 2 puff BID [facility] Administration Enoxaparin Sodium 40 mg 01/18/18 10:00 01/19/18 10:16 Lovenox - SQ 40 mg DAILY [facility] Administration Famotidine 20 mg 01/18/18 10:15 01/19/18 10:16 Pepcid - PO 20 mg BID [facility] Administration Folic Acid 1 mg 01/18/18 10:00 01/19/18 10:16 Folic Acid - PO 1 mg DAILY [facility] Administration Guaifenesin 1,200 mg 01/18/18 10:00 01/19/18 10:16 Mucinex - PO 1,200 mg BID [facility] Administration Guaifenesin/Codeine Phosphate 10 ml 01/18/18 08:42 Robitussin Ac - PO HS PRN COUGH Ceftriaxone Sodium 1 gm in 50 mls @ 100 mls/hr 01/18/18 10:00 01/19/18 10:15 Rocephin 1gm Ivpb (Pre-Docked) IVPB 100 mls/hr DAILY [facility] Administration Protocol Potassium Chloride/Sodium Chloride 20 meq in 1,000 mls @ 100 mls/hr 01/18/18 11:45 01/19/18 12:55 Ns+20 Meq Kcl - IV 100 mls/hr ASDIR [facility] Administration Azithromycin 250 mg/ Dextrose 250 mls @ 250 mls/hr 01/19/18 10:00 01/19/18 10 :16 IVPB 250 mls/hr DAILY [facility] Administration Insulin Aspart 0 units 01/17/18 22:00 01/19/18 12:00 Novolog Vial SQ 10 unit ACHS [facility] Administration Protocol Insulin Detemir 5 units 01/19/18 15:15 Levemir Vial SQ DAILY@0800 [facility] Methylprednisolone Sodium Succinate 40 mg 01/18/18 10:00 01/19/18 10:15 Solu-Medrol - IVPUSH 40 mg Q8H-IV [facility] Administration Ramipril 5 mg 01/18/18 10:00 01/19/18 10:16 Altace - PO 5 mg DAILY [facility] Administration ASSESSMENT/PLAN: 1) Acute R-sided Pneumonia -ID and pulmonary are following; continue to follow their recs as documented. -Continue with current abx; doing well and tolerating -Final results of blood and sputum cx's pending; final Tb tests pending. Negative pneumococcal/legionella Ag; LA trended down. -WBC wnl today; afebrile. Will ambulate. If continues to improve consider DC soon. 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
[2018-01-19] MEDS: INSULIN (LEVEMIR) 100 UNITS/ML UNITS SQ SCH (16:15)
[2018-01-19] MEDS: ATORVASTATIN CA 20 MG TABLET (FP) PO SCH (22:12)
[2018-01-20] MEDS: methylPREDNISolone NA SUCC 40 MG/1 ML VIAL IVPUSH SCH ×2 (01:32→10:42)
[2018-01-20] MEDS: guaiFENesin/CODEINE 10 ML UNIT-DOSE CUPS PO PRN ×2 (01:55→23:32)
[2018-01-20] MEDS: ALBUTEROL SO4 2.5/IPRATROPIUM 0.5 INH SOL 3 ML VIAL.NEB. NEB SCH ×6 (01:55→21:30)
[2018-01-20] MEDS: INSULIN (NOVOLOG) ASPART 100 UNITS/ML 10ML VIAL SQ SCH ×4 (08:12→21:31)
[2018-01-20 08:22] LABS: BASO % 0.2 % (0-2.0); HEMATOCRIT 31.8 % (35.4-49); LYMPH % 6.6 % (8-40); MCHC 31.5 g/dl (32.0-35.9); MEAN CELL VOLUME 66.6 fl (80-96); MEAN PLT VOLUME 7.8 fl (7.5-11.1); MONO % 4.1 % (3.8-10.2); NEUT % 89.1 % (42.8-82.8); PLATELET COUNT 505 K/MM3 (134-434); RBC 4.78 M/mm3 (4.00-5.60); RDW 16.5 % (11.9-15.9)
[2018-01-20 08:29] LABS: ALBUMIN 2.7 g/dl (3.5-5.0); ALK PHOS 116 U/L (32-92); ANION GAP 10 MMOL/L (8-16); BILIRUBIN,TOTAL 0.5 mg/dl (0.2-1.0); BLOOD UREA NITROGEN 21 mg/dl (7-18); CALCIUM 8.2 mg/dl (8.4-10.2); CHLORIDE 99 mmol/L (98-107); CO2 26 mmol/L (22-28); CREATININE 0.9 mg/dl (0.6-1.3); POTASSIUM 4.4 mmol/L (3.5-5.1); SGOT/AST 47 U/L (10-42); SGPT/ALT 42 U/L (10-40); SODIUM 135 mmol/L (136-145); TOT PROT 6.5 g/dl (6.4-8.3)
--- NOTE | 2018-01-20 08:29 | PN ---
Physical Exam: SUBJECTIVE: Patient seen and examined, ambulatory at bedside, reports improvement of shortness of breath. OBJECTIVE: patient is a 57 y/o male with a past medical history of HTN, NIDDM, chronic right middle lobe lung collapse, and asthma. patient was admitted from the emergency department for sepsis secondary to right middle lobe PNA. Vital Signs Period Temp Pulse Resp BP Sys/Baum Pulse Ox Last 24 Hr 97.7 F-98.9 F 105-123 18-18 127-139/65-85 98-100 GENERAL: The patient is awake, alert, and fully oriented, in no acute distress. HEAD: Normal with no signs of trauma. EYES: PERRL, extraocular movements intact, sclera anicteric, conjunctiva clear. No ptosis. ENT: Ears normal, nares patent, oropharynx clear without exudates, moist mucous membranes. NECK: Trachea midline, full range of motion, supple. LUNGS: Breath sounds equal, dimininshed to right base, course rhonchi to bilateral apexes, no wheezes, no crackles, no accessory muscle use. HEART: Regular rate and rhythm, S1, S2 without murmur, rub or gallop. ABDOMEN: Soft, nontender, nondistended, normoactive bowel sounds, no guarding, no rebound, no hepatosplenomegaly, no masses. EXTREMITIES: 2+ pulses, warm, well-perfused, no edema. NEUROLOGICAL: Cranial nerves II through XII grossly intact. Normal speech, steady gait noted. . PSYCH: Normal mood, normal affect. SKIN: Warm, dry, normal turgor, no rashes or lesions noted Laboratory Results - last 24 hr 01/19/18 01/19/18 01/19/18 07:32 12:20 16:55 POC Glucometer 378 354 Lactic Acid 2.1 H 01/19/18 01/20/18 21:06 06:25 POC Glucometer 295 301 Lactic Acid CBC WBC 13.0 K/mm3 (4.0-10.8) H 01/20/18 07:20 RBC 4.78 M/mm3 (4.00-5.60) 01/20/18 07:20 Hgb 10.0 GM/dl (11.7-16.9) L 01/20/18 07:20 Hct 31.8 % (35.4-49) L 01/20/18 07:20 MCV 66.6 fl (80-96) L 01/20/18 07:20 MCH 21.0 pg (25.7-33.7) L 01/20/18 07:20 MCHC 31.5 g/dl (32.0-35.9) L 01/20/18 07:20 RDW 16.5 % (11.9-15.9) H 01/20/18 07:20 Plt Count 505 K/MM3 (134-434) H 01/20/18 07:20 MPV 7.8 fl (7.5-11.1) 01/20/18 07:20 Absolute Neuts (auto) 11.6 K/mm3 01/20/18 07:20 Neutrophils % 89.1 % (42.8-82.8) H 01/20/18 07:20 Neutrophils % (Manual) 82.0 % (42.8-82.8) 01/18/18 07:30 Band Neutrophils % 2.0 % (0-10) 01/18/18 07:30 Lymphocytes % 6.6 % (8-40) L D 01/20/18 07:20 Lymphocytes % (Manual) 11.0 % (8-40) 01/18/18 07:30 Monocytes % 4.1 % (3.8-10.2) 01/20/18 07:20 Monocytes % (Manual) 4 % (3.8-10.2) 01/18/18 07:30 Eosinophils % 0.0 % (0-4.5) 01/20/18 07:20 Basophils % 0.2 % (0-2.0) 01/20/18 07:20 Metamyelocytes 1 % (0-2) 01/18/18 07:30 Platelet Estimate Slt increase 01/18/18 07:30 Polychromasia 1+ 01/18/18 07:30 Poikilocytosis 1+ 01/18/18 07:30 Anisocytosis 1+ 01/18/18 07:30 Ovalocytes 1+ 01/18/18 07:30 CMP Sodium 135 mmol/L (136-145) L 01/20/18 07:20 Potassium 4.4 mmol/L (3.5-5.1) D 01/20/18 07:20 Chloride 99 mmol/L (98-107) 01/20/18 07:20 Carbon Dioxide 26 mmol/L (22-28) 01/20/18 07:20 Anion Gap 10 MMOL/L (8-16) 01/20/18 07:20 BUN 21 mg/dl (7-18) H 01/20/18 07:20 Creatinine 0.9 mg/dl (0.6-1.3) 01/20/18 07:20 Creat Clearance w eGFR > 60 (>60) 01/20/18 07:20 POC Glucometer 319 UNITS (80-120) 01/20/18 10:54 Random Glucose 325 mg/dl (74-106) H* 01/20/18 07:20 Hemoglobin A1c % 10.3 % (4.2-6.3) H 01/18/18 07:30 Lactic Acid 2.1 mmol/L (0.4-2.0) H 01/19/18 07:32 Calcium 8.2 mg/dl (8.4-10.2) L 01/20/18 07:20 Phosphorus 4.1 mg/dl (2.5-4.6) D 01/20/18 07:00 Magnesium 2.5 mg/dL (1.8-2.4) H 01/20/18 07:00 Total Bilirubin 0.5 mg/dl (0.2-1.0) 01/20/18 07:20 AST 47 U/L (10-42) H D 01/20/18 07:20 ALT 42 U/L (10-40) H D 01/20/18 07:20 Alkaline Phosphatase 116 U/L (32-92) H 01/20/18 07:20 Troponin I < 0.03 ng/ml (0.00-0.06) 01/17/18 12:03 Total Protein 6.5 g/dl (6.4-8.3) 01/20/18 07:20 Albumin 2.7 g/dl (3.5-5.0) L 01/20/18 07:20 Active Medications Generic Name Dose Route Start Last Admin Trade Name Freq PRN Reason Stop Dose Admin Acetaminophen 650 mg 01/17/18 15:08 01/18/18 08:59 Tylenol - PO 650 mg Q6H PRN Administration FEVER Albuterol/Ipratropium 1 amp 01/17/18 20:00 01/20/18 06:40 Duoneb - NEB Not Given RQ4H [facility] Amlodipine Besylate 5 mg 01/18/18 10:00 01/19/18 10:16 Norvasc - PO 5 mg DAILY [facility] Administration Atorvastatin Calcium 20 mg 01/18/18 22:00 01/19/18 22:12 Lipitor - PO 20 mg HS [facility] Administration Budesonide/Formoterol Fumarate 2 puff 01/18/18 22:00 01/19/18 22:12 Symbicort 80/4.5mcg - IH 2 puff BID [facility] Administration Enoxaparin Sodium 40 mg 01/18/18 10:00 01/19/18 10:16 Lovenox - SQ 40 mg DAILY [facility] Administration Famotidine 20 mg 01/18/18 10:15 01/19/18 22:12 Pepcid - PO 20 mg BID [facility] Administration Folic Acid 1 mg 01/18/18 10:00 01/19/18 10:16 Folic Acid - PO 1 mg DAILY [facility] Administration Guaifenesin 1,200 mg 01/18/18 10:00 01/19/18 22:12 Mucinex - PO 1,200 mg BID [facility] Administration Guaifenesin/Codeine Phosphate 10 ml 01/18/18 08:42 01/20/18 01:55 Robitussin Ac - PO 10 ml HS PRN Administration COUGH Ceftriaxone Sodium 1 gm in 50 mls @ 100 mls/hr 01/18/18 10:00 01/19/18 10:15 Rocephin 1gm Ivpb (Pre-Docked) IVPB 100 mls/hr DAILY [facility] Administration Protocol Potassium Chloride/Sodium Chloride 20 meq in 1,000 mls @ 100 mls/hr 01/18/18 11:45 01/19/18 12:55 Ns+20 Meq Kcl - IV 100 mls/hr ASDIR [facility] Administration Azithromycin 250 mg/ Dextrose 250 mls @ 250 mls/hr 01/19/18 10:00 01/19/18 10 :16 IVPB 250 mls/hr DAILY [facility] Administration Insulin Aspart 0 units 01/17/18 22:00 01/20/18 08:12 Novolog Vial SQ 10 unit ACHS [facility] Administration Protocol Insulin Detemir 5 units 01/19/18 15:15 01/19/18 16:15 Levemir Vial SQ 5 units DAILY@0800 [facility] Administration Methylprednisolone Sodium Succinate 40 mg 01/18/18 10:00 01/20/18 01:32 Solu-Medrol - IVPUSH 40 mg Q8H-IV [facility] Administration Ramipril 5 mg 01/18/18 10:00 01/19/18 10:16 Altace - PO 5 mg DAILY [facility] Administration Microbiology 01/17/18 12:03 Blood Culture - Preliminary Blood - Peripheral Venous NO GROWTH OBTAINED AFTER 72 HOURS, INCUBATION TO CONTINUE FOR 2 DAYS. 01/18/18 05:00 Gram Stain - Final Sputum - Expectorated Sputum Culture - Final Yeast Like Organism 01/17/18 12:03 Blood Culture - Preliminary Blood - Peripheral Venous NO GROWTH OBTAINED AFTER 72 HOURS, INCUBATION TO CONTINUE FOR 2 DAYS. 01/18/18 15:20 Gram Stain - Final Sputum - Expectorated Sputum Culture - Preliminary Yeast Like Organism 01/18/18 15:20 AFB Smear Concentration - Preliminary Sputum - Expectorated Direct Acid Fast Bacilli Smear - Final Mycobacterial Culture - Preliminary ASSESSMENT/PLAN: 1) Acute R-sided Pneumonia -ID and pulmonary are following; negative afb x 1, awaiting interforn gold testing -Continue with current abx; doing well and tolerating -Final results of blood and sputum cx's pending; final Tb tests pending. Negative pneumococcal/legionella Ag; LA trended down. -WBC slightly elevated, pt is on steroids: afebrile. 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 - New Patient This patient is new to me today: No - Critical Care Critical Care patient: No - Discharge Referral Referred to [facility] Med P.C.: No
[2018-01-20 08:58] LABS: GLUCOSE,RANDOM 325 mg/dl (74-106)
--- NOTE | 2018-01-20 10:06 | PN ---
Progress Note (short form) - Note Progress Note: ID Consult dictated 57 year old male admitted with R sided pneumonia Has had R sided atelectasis on CXRs dating back to at least 2014 No documented work up ( CT scan, bronchoscopy) ?Endobronchial lesion/ post-obstructive pneumonia Obtain CT chest Sputum c/s AFB ? Bronchoscopy Empiric tx post-obstructive pneumonia Zosyn
[2018-01-20] MEDS: INSULIN (LEVEMIR) 100 UNITS/ML UNITS SQ SCH (10:07)
[2018-01-20 10:18] LABS: MAGNESIUM 2.5 mg/dL (1.8-2.4); PHOSPHOROUS 4.1 mg/dl (2.5-4.6)
[2018-01-20] MEDS: AZITHROMYCIN IVPB 250 MG in DEXTROSE 5%-WATER - 250 ML IVPB SCH (10:30)
[2018-01-20] MEDS: CEFTRIAXONE 1 GM/50 ML BAG IVPB SCH (10:31)
[2018-01-20] MEDS ORDERED: PT OWN MED DRAWER 7, Y5N ONE ×2 (10:37→21:01)
[2018-01-20] MEDS: PIPERACILLIN/TAZOB 4.5 GM 4.5 GM/100 ML BAG IVPB SCH ×2 (10:41→17:00)
[2018-01-20] MEDS: BUDESONIDE/FORMETEROL FUMARATE 80/4.5 mcg INHALER IH SCH ×2 (10:41→21:30)
[2018-01-20] MEDS: ENOXAPARIN NA (PORCINE) 40 MG/0.4 ML DISP.SYRIN SQ SCH (10:41)
[2018-01-20] MEDS: guaiFENesin 600 MG TABLET.ER (FP) PO SCH ×2 (10:42→21:30)
[2018-01-20] MEDS: amLODIPine BESYLATE 5 MG TABLET (FP) PO SCH (10:42)
[2018-01-20] MEDS: RAMIPRIL 5 MG CAPSULE (FP) PO SCH (10:42)
[2018-01-20] MEDS: FAMOTIDINE 20 MG TABLET PO SCH ×2 (10:42→21:30)
[2018-01-20] MEDS: FOLIC ACID 1 MG TABLET (FP) PO SCH (10:46)
[2018-01-20] MEDS: SODIUM CHLORIDE 0.9%/KCL 20 MEQ/1,000 ML INFUS.BAG IV SCH (10:46)
--- NOTE | 2018-01-20 11:15 | CONS ---
DATE OF CONSULTATION: DATE OF DICTATION: 01/20/2018 HISTORY OF PRESENT ILLNESS: The patient is a 57-year-old diabetic male evaluated for pneumonia. He presented to the hospital on January 17, 2018, with 4-day history of worsening right-sided pleuritic type chest pain, cough productive of whitish sputum, fever, and chills. He had been seen as an outpatient by his primary care physician and was prescribed Zithromax without improvement. He presented to the emergency room where chest x-ray showed a right lower lobe infiltrate and atelectasis. He was noted to have fever 102.6 and an elevated white blood cell count as well as elevated lactic acid level. He was empirically treated with Levaquin and ceftriaxone. At the present time, he complains of cough productive of whitish sputum. He denies any hemoptysis. He has less pleuritic chest pain. His temperatures have improved on empiric antibiotic therapy. On review of his chest x-rays, patient has had evidence of right-sided atelectasis dating back to at least January of 2015. It is not clear whether he has had a workup for this condition. There is no documentation of CT scans or bronchoscopy. He denies TB exposure. PAST MEDICAL HISTORY: Positive for diabetes mellitus, hypertension, asthma, and recurrent pneumonia. ALLERGIES: No known allergies. MEDICATIONS: Ventolin, Norvasc, Lipitor, Motrin, Altace. SOCIAL HISTORY: He is originally from [place]. 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 He denies tobacco, alcohol, or illicit drug use. His HIV test is negative. LABORATORY DATA: White count 13.0, hematocrit 31.8, platelet count 505. Creatinine 0.9. Lactic acid 2.1, total bilirubin 0.5, alkaline phosphatase 116, AST 47. Urinalysis 0-2 white cells. HIV test negative. Cultures are pending. Influenza swab negative. Legionella antigen and pneumococcal antigen negative. PHYSICAL EXAMINATION: General: He is awake and alert. He is ambulatory. He is not acutely toxic-appearing. He is not acutely short of breath at rest. Vital signs: Temperature 97.7, blood pressure 133/83, pulse 105 and regular, respirations 18 per minute. HEENT: Sclerae anicteric. Heart: Heart sounds S1, S2. Lungs: Clear. Diminished breath sounds right side. Abdomen: Obese, soft, nontender. Extremities: Negative for edema. IMPRESSION: A 57-year-old male admitted with right-sided pneumonia with history of recurrent pneumonias. He has had right-sided atelectasis on chest x-rays dating back to at least January of 2015. He has had no documented workup for this (CT scan, bronchoscopy). I am concerned about the presence of an endobronchial lesion and postobstructive pneumonia. PLAN: Obtain CT scan of the chest, await sputum culture, obtain QuantiFERON sputum AFB, would consider bronchoscopy, empiric antibiotic coverage for postobstructive pneumonia with Zosyn 4.5 g IV piggyback every 8 hours. Thank you for the kind referral. MU QUINONES M.D. [id number]
--- NOTE | 2018-01-20 12:43 | PN ---
Progress Note (short form) - Note Progress Note: PULMONARY REMAINS ON ISOLATION MUCH IMPROVED AFEBRILE SPO2 99% R/A LES COUGH/NO CP SUGARS ARE STILL HIGH AFB X1 NEGATIVE ANICTERIC CLEAR B/L BREATH SOUNDS S1S2 OBESE BS+ NO EDEMA LABS/MEDS/NOTES/IMAGES REVIEWED CT CHEST PENDING RLL INFILTRATEE POORLY CONTROLLED DIABETES HTN BRONCHIAL ASTHMA CONTINUE CURRENT LINE OF TREATMENT GLYCEMIC CONTROL/BRONCHODILATORS/ANTIBIOTICS ISOLATION PER ID DISCONTINUE STEROIDS Farhan GARCÍA MD Problem List - Problems (1) Diabetes Code(s): E11.9 - TYPE 2 DIABETES MELLITUS WITHOUT COMPLICATIONS (2) Community acquired bacterial pneumonia Code(s): J15.9 - UNSPECIFIED BACTERIAL PNEUMONIA (3) Sepsis due to pneumonia Code(s): J18.9 - PNEUMONIA, UNSPECIFIED ORGANISM; A41.9 - SEPSIS, UNSPECIFIED ORGANISM (4) Anemia Code(s): D64.9 - ANEMIA, UNSPECIFIED (5) Lactic acid blood increased Code(s): R79.89 - OTHER SPECIFIED ABNORMAL FINDINGS OF BLOOD CHEMISTRY (6) Hypoalbuminemia Code(s): E88.09 - OTH DISORDERS OF PLASMA-PROTEIN METABOLISM, NEC (7) Hypomagnesemia Code(s): E83.42 - HYPOMAGNESEMIA (8) Hypocalcemia Code(s): E83.51 - HYPOCALCEMIA
[2018-01-20] MEDS ORDERED: INSULIN (NOVOLOG) ASPART 100 UNITS/ML 10ML VIAL ONE ×2 (16:48→21:27)
[2018-01-20] MEDS: ATORVASTATIN CA 20 MG TABLET (FP) PO SCH (21:30)
[2018-01-21] MEDS: PIPERACILLIN/TAZOB 4.5 GM 4.5 GM/100 ML BAG IVPB SCH (01:24)
[2018-01-21] MEDS ORDERED: INSULIN (LEVEMIR) 100 UNITS/ML UNITS SQ SCH (08:00)
[2018-01-21 08:10] LABS: HEMATOCRIT 31.2 % (35.4-49); HEMOGLOBIN 10.1 GM/dl (11.7-16.9); LYMPH % 12.6 % (8-40); MCH 21.3 pg (25.7-33.7); MCHC 32.3 g/dl (32.0-35.9); MEAN PLT VOLUME 7.5 fl (7.5-11.1); MONO % 6.9 % (3.8-10.2); NEUT % 80.5 % (42.8-82.8); PLATELET COUNT 506 K/MM3 (134-434); RBC 4.72 M/mm3 (4.00-5.60); RDW 16.5 % (11.9-15.9); WHITE BLOOD COUNT 14.4 K/mm3 (4.0-10.8)
[2018-01-21 08:15] LABS: ANION GAP 6 MMOL/L (8-16); BLOOD UREA NITROGEN 23 mg/dl (7-18); CALCIUM 7.8 mg/dl (8.4-10.2); CHLORIDE 101 mmol/L (98-107); CO2 28 mmol/L (22-28); GLUCOSE,RANDOM 205 mg/dl (74-106); MAGNESIUM 2.4 mg/dL (1.8-2.4); POTASSIUM 4.5 mmol/L (3.5-5.1); SODIUM 135 mmol/L (136-145)
[2018-01-21] MEDS ORDERED: PT OWN MED DRAWER 7, Y5N ONE ×2 (09:57→18:10)
[2018-01-21] MEDS: PIPERACILLIN/TAZOB 4.5 GM 4.5 GM in SODIUM CHLORIDE 100 ML IVPB SCH ×2 (10:00→18:23)
[2018-01-21] MEDS: INSULIN (NOVOLOG) ASPART 100 UNITS/ML 10ML VIAL SQ SCH ×4 (10:01→21:58)
[2018-01-21] MEDS: ALBUTEROL SO4 2.5/IPRATROPIUM 0.5 INH SOL 3 ML VIAL.NEB. NEB SCH ×4 (10:01→20:01)
[2018-01-21] MEDS: ENOXAPARIN NA (PORCINE) 40 MG/0.4 ML DISP.SYRIN SQ SCH (10:02)
[2018-01-21] MEDS: guaiFENesin 600 MG TABLET.ER (FP) PO SCH ×2 (10:02→21:56)
[2018-01-21] MEDS: BUDESONIDE/FORMETEROL FUMARATE 80/4.5 mcg INHALER IH SCH ×2 (10:03→21:56)
[2018-01-21] MEDS: amLODIPine BESYLATE 5 MG TABLET (FP) PO SCH (10:03)
[2018-01-21] MEDS: FAMOTIDINE 20 MG TABLET PO SCH ×2 (10:03→21:56)
[2018-01-21] MEDS: RAMIPRIL 5 MG CAPSULE (FP) PO SCH (10:03)
[2018-01-21] MEDS: FOLIC ACID 1 MG TABLET (FP) PO SCH (10:03)
--- NOTE | 2018-01-21 10:08 | PN ---
Progress Note, Physician History of Present Illness: Awake, alert OOB in chair No complaints Denies chest pain/ dyspnea No c/o fever/ chills Dry cough noted - Current Medication List Current Medications: Active Medications Acetaminophen (Tylenol -) 650 mg PO Q6H PRN PRN Reason: FEVER Last Admin: 01/18/18 08:59 Dose: 650 mg Albuterol/Ipratropium (Duoneb -) 1 amp NEB RQID [facility] Last Admin: 01/21/18 10:01 Dose: 1 amp Amlodipine Besylate (Norvasc -) 5 mg PO DAILY [facility] Last Admin: 01/21/18 10:03 Dose: 5 mg Atorvastatin Calcium (Lipitor -) 20 mg PO HS [facility] Last Admin: 01/20/18 21:30 Dose: 20 mg Budesonide/Formoterol Fumarate (Symbicort 80/4.5mcg -) 2 puff IH BID [facility] Last Admin: 01/21/18 10:03 Dose: 2 puff Enoxaparin Sodium (Lovenox -) 40 mg SQ DAILY [facility] Last Admin: 01/21/18 10:02 Dose: 40 mg Famotidine (Pepcid -) 20 mg PO BID [facility] Last Admin: 01/21/18 10:03 Dose: 20 mg Folic Acid (Folic Acid -) 1 mg PO DAILY [facility] Last Admin: 01/21/18 10:03 Dose: 1 mg Guaifenesin (Mucinex -) 1,200 mg PO BID [facility] Last Admin: 01/21/18 10:02 Dose: 1,200 mg Piperacillin Sod/Tazobactam (Sod 4.5 gm/ Sodium Chloride) 100 mls @ 200 mls/hr IVPB Q8H-IV [facility]; Protocol Insulin Aspart (Novolog Vial) 0 units SQ ACHS [facility]; Protocol Last Admin: 01/21/18 10:01 Dose: 4 unit Insulin Detemir (Levemir Vial) 10 units SQ DAILY@0800 [facility] Last Admin: 01/21/18 10:02 Dose: 10 units Ramipril (Altace -) 5 mg PO DAILY [facility] Last Admin: 01/21/18 10:03 Dose: 5 mg - Objective Vital Signs: Vital Signs Temperature 99.2 F 01/21/18 06:00 Pulse Rate 86 01/21/18 06:00 Respiratory Rate 18 11/08/18 06:00 Blood Pressure 139/78 11/08/18 06:00 O2 Sat by Pulse Oximetry (%) 97 01/21/18 06:00 Constitutional: Yes: No Distress Eyes: Yes: Conjunctiva Clear Cardiovascular: Yes: Regular Rate and Rhythm, S1, S2 Respiratory: Yes: CTA Bilaterally Gastrointestinal: Yes: Normal Bowel Sounds, Soft. No: Tenderness Edema: No Labs: CBC, BMP 01/21/18 07:37 01/21/18 07:37 Assessment/Plan RML consolidation/ atelectatic lung ? post obstructive Await c/s, AFB Continue empiric zosyn Bronchoscopy per pulmonary
--- NOTE | 2018-01-21 10:42 | PN ---
Progress Note, Physician History of Present Illness: pulmonary alert,feeling better,less dyspneic, chest ct RML consolidation/atelectasis - Current Medication List Current Medications: Active Medications Acetaminophen (Tylenol -) 650 mg PO Q6H PRN PRN Reason: FEVER Last Admin: 01/18/18 08:59 Dose: 650 mg Albuterol/Ipratropium (Duoneb -) 1 amp NEB RQID [facility] Last Admin: 01/21/18 10:01 Dose: 1 amp Amlodipine Besylate (Norvasc -) 5 mg PO DAILY [facility] Last Admin: 01/21/18 10:03 Dose: 5 mg Atorvastatin Calcium (Lipitor -) 20 mg PO HS [facility] Last Admin: 01/20/18 21:30 Dose: 20 mg Budesonide/Formoterol Fumarate (Symbicort 80/4.5mcg -) 2 puff IH BID [facility] Last Admin: 01/21/18 10:03 Dose: 2 puff Enoxaparin Sodium (Lovenox -) 40 mg SQ DAILY [facility] Last Admin: 01/21/18 10:02 Dose: 40 mg Famotidine (Pepcid -) 20 mg PO BID [facility] Last Admin: 01/21/18 10:03 Dose: 20 mg Folic Acid (Folic Acid -) 1 mg PO DAILY [facility] Last Admin: 01/21/18 10:03 Dose: 1 mg Guaifenesin (Mucinex -) 1,200 mg PO BID [facility] Last Admin: 01/21/18 10:02 Dose: 1,200 mg Piperacillin Sod/Tazobactam (Sod 4.5 gm/ Sodium Chloride) 100 mls @ 200 mls/hr IVPB Q8H-IV [facility]; Protocol Insulin Aspart (Novolog Vial) 0 units SQ ACHS [facility]; Protocol Last Admin: 01/21/18 10:01 Dose: 4 unit Insulin Detemir (Levemir Vial) 10 units SQ DAILY@0800 [facility] Last Admin: 01/21/18 10:02 Dose: 10 units Ramipril (Altace -) 5 mg PO DAILY [facility] Last Admin: 01/21/18 10:03 Dose: 5 mg - Objective Vital Signs: Vital Signs Temperature 99.2 F 01/21/18 06:00 Pulse Rate 86 01/21/18 06:00 Respiratory Rate 18 01/21/18 06:00 Blood Pressure 139/78 01/21/18 06:00 O2 Sat by Pulse Oximetry (%) 97 01/21/18 06:00 Constitutional: Yes: Well Nourished, Calm Eyes: Yes: WNL HENT: Yes: WNL Neck: Yes: WNL Cardiovascular: Yes: Regular Rate and Rhythm, S1, S2 Respiratory: Yes: CTA Bilaterally Gastrointestinal: Yes: Normal Bowel Sounds, Soft Extremities: Yes: WNL Edema: No Labs: CBC, BMP 01/21/18 07:37 01/21/18 07:37 Assessment/Plan Problem List - Problems (1) Diabetes Code(s): E11.9 - TYPE 2 DIABETES MELLITUS WITHOUT COMPLICATIONS (2) Community acquired bacterial pneumonia Code(s): J15.9 - UNSPECIFIED BACTERIAL PNEUMONIA (3) Sepsis due to pneumonia Code(s): J18.9 - PNEUMONIA, UNSPECIFIED ORGANISM; A41.9 - SEPSIS, UNSPECIFIED ORGANISM (4) Anemia Code(s): D64.9 - ANEMIA, UNSPECIFIED (5) Lactic acid blood increased Code(s): R79.89 - OTHER SPECIFIED ABNORMAL FINDINGS OF BLOOD CHEMISTRY (6) Hypoalbuminemia Code(s): E88.09 - OT DISORDERS OF PLASMA-PROTEIN METABOLISM, NEC (7) Hypomagnesemia Code(s): E83.42 - HYPOMAGNESEMIA (8) Hypocalcemia Code(s): E83.51 - HYPOCALCEMIA Assessment/Plan PNEUMONIA OBESITY ASTHMA LIKELY SLEEP APNEA PLAN ABX O2 NEEDED INHALED BRONCHODILATORS FLEX BRONCH OUTPATIENT SLEEP STUDIES OUTPATIENT DR DE JESUS
--- NOTE | 2018-01-21 13:30 | PN ---
Physical Exam: SUBJECTIVE: Patient seen and examined, patient reports feeling much improved, reports less cough, ambulatory at bedside, denies any dyspnea upon exertion. OBJECTIVE:patient is a 57 y/o male with a past medical history of HTN, NIDDM, chronic right middle lobe lung collapse, and asthma. patient was admitted from the emergency department for sepsis secondary to right middle lobe PNA. Vital Signs Period Temp Pulse Resp BP Sys/Baum Pulse Ox Last 24 Hr 98.0 F-99.2 F 83-107 18-18 138-155/56-85 97-98 GENERAL: The patient is awake, alert, and fully oriented, in no acute distress. HEAD: Normal with no signs of trauma. EYES: PERRL, extraocular movements intact, sclera anicteric, conjunctiva clear. No ptosis. ENT: Ears normal, nares patent, oropharynx clear without exudates, moist mucous membranes. NECK: Trachea midline, full range of motion, supple. LUNGS: Breath sounds equal, clear to auscultation bilaterally to apexes, diminshed to the right base, no wheezes, no crackles, no accessory muscle use. HEART: Regular rate and rhythm, S1, S2 without murmur, rub or gallop. ABDOMEN: Soft, nontender, nondistended, normoactive bowel sounds, no guarding, no rebound, no hepatosplenomegaly, no masses. EXTREMITIES: 2+ pulses, warm, well-perfused, no edema. NEUROLOGICAL: Cranial nerves II through XII grossly intact. Normal speech, steady gait noted. PSYCH: Normal mood, normal affect. SKIN: Warm, dry, normal turgor, no rashes or lesions noted Laboratory Results - last 24 hr 01/20/18 01/20/18 01/21/18 16:43 21:10 06:04 WBC RBC Hgb Hct MCV MCH MCHC RDW Plt Count MPV Absolute Neuts (auto) Neutrophils % Lymphocytes % Monocytes % Eosinophils % Basophils % Sodium Potassium Chloride Carbon Dioxide Anion Gap BUN Creatinine Creat Clearance w eGFR POC Glucometer 279 292 220 Random Glucose Calcium Phosphorus Magnesium 01/21/18 01/21/18 07:37 07:37 WBC 14.4 H RBC 4.72 Hgb 10.1 L Hct 31.2 L MCV 66.0 L MCH 21.3 L MCHC 32.3 RDW 16.5 H Plt Count 506 H MPV 7.5 Absolute Neuts (auto) 11.6 Neutrophils % 80.5 Lymphocytes % 12.6 D Monocytes % 6.9 Eosinophils % 0.0 Basophils % 0.0 Sodium 135 L Potassium 4.5 Chloride 101 Carbon Dioxide 28 Anion Gap 6 L BUN 23 H Creatinine 1.0 Creat Clearance w eGFR > 60 POC Glucometer Random Glucose 205 H D Calcium 7.8 L Phosphorus 4.0 Magnesium 2.4 Active Medications Generic Name Dose Route Start Last Admin Trade Name Freq PRN Reason Stop Dose Admin Acetaminophen 650 mg 01/17/18 15:08 01/18/18 08:59 Tylenol - PO 650 mg Q6H PRN Administration FEVER Albuterol/Ipratropium 1 amp 01/20/18 16:00 01/21/18 10:01 Duoneb - NEB 1 amp RQID [facility] Administration Amlodipine Besylate 5 mg 01/18/18 10:00 01/21/18 10:03 Norvasc - PO 5 mg DAILY [facility] Administration Atorvastatin Calcium 20 mg 01/18/18 22:00 01/20/18 21:30 Lipitor - PO 20 mg HS [facility] Administration Budesonide/Formoterol Fumarate 2 puff 01/18/18 22:00 01/21/18 10:03 Symbicort 80/4.5mcg - IH 2 puff BID [facility] Administration Enoxaparin Sodium 40 mg 01/18/18 10:00 01/21/18 10:02 Lovenox - SQ 40 mg DAILY [facility] Administration Famotidine 20 mg 01/18/18 10:15 01/21/18 10:03 Pepcid - PO 20 mg BID [facility] Administration Folic Acid 1 mg 01/18/18 10:00 01/21/18 10:03 Folic Acid - PO 1 mg DAILY [facility] Administration Guaifenesin 1,200 mg 01/18/18 10:00 01/21/18 10:02 Mucinex - PO 1,200 mg BID [facility] Administration Piperacillin Sod/Tazobactam 100 mls @ 200 mls/hr 01/21/18 10:00 Sod 4.5 gm/ Sodium Chloride IVPB Q8H-IV [facility] Protocol Insulin Aspart 0 units 01/17/18 22:00 01/21/18 10:01 Novolog Vial SQ 4 unit ACHS [facility] Administration Protocol Insulin Detemir 10 units 01/21/18 08:00 01/21/18 10:02 Levemir Vial SQ 10 units DAILY@0800 [facility] Administration Ramipril 5 mg 01/18/18 10:00 01/21/18 10:03 Altace - PO 5 mg DAILY [facility] Administration Microbiology 01/18/18 15:20 Gram Stain - Final Sputum - Expectorated Sputum Culture - Final Yeast Like Organism 01/17/18 12:03 Blood Culture - Preliminary Blood - Peripheral Venous NO GROWTH OBTAINED AFTER 96 HOURS, INCUBATION TO CONTINUE FOR 1 DAYS. 01/17/18 12:03 Blood Culture - Preliminary Blood - Peripheral Venous NO GROWTH OBTAINED AFTER 96 HOURS, INCUBATION TO CONTINUE FOR 1 DAYS. 01/18/18 05:00 Gram Stain - Final Sputum - Expectorated Sputum Culture - Final Yeast Like Organism 01/18/18 15:20 AFB Smear Concentration - Preliminary Sputum - Expectorated Direct Acid Fast Bacilli Smear - Final Mycobacterial Culture - Preliminary IMAGING ct of chest: right middle lobe infilitrate w/associated lobe expansion, moderate right pleural effusion ASSESSMENT/PLAN: 1) Acute R-sided Pneumonia, secondary to obstructive process - ID and pulmonary are following; negative afb, awaiting interforn gold testing - discussed with pulmonary (Dr Lopez) will require outpatient bronchoscopy -Continue with current abx (zosyn), zithromax and rocephin (01/18-01/21); doing well and tolerating -Final results of blood and sputum cx's pending; final Tb tests pending. Negative pneumococcal/legionella Ag; LA trended down. -WBC slightly elevated, pt was on steroids: afebrile. 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 - New Patient This patient is new to me today: No - Critical Care Critical Care patient: No - Discharge Referral Referred to [facility] No
[2018-01-21] MEDS: ATORVASTATIN CA 20 MG TABLET (FP) PO SCH (21:55)
[2018-01-22] MEDS ORDERED: PT OWN MED DRAWER 7, Y5N ONE ×2 (00:49→10:01)
[2018-01-22] MEDS: PIPERACILLIN/TAZOB 4.5 GM 4.5 GM in SODIUM CHLORIDE 100 ML IVPB SCH ×2 (01:23→10:18)
[2018-01-22] MEDS: INSULIN (NOVOLOG) ASPART 100 UNITS/ML 10ML VIAL SQ SCH ×2 (06:35→21:40)
[2018-01-22 08:18] LABS: EOS % 2.4 % (0-4.5); HEMATOCRIT 34.3 % (35.4-49); HEMOGLOBIN 11.2 GM/dl (11.7-16.9); LYMPH % 17.2 % (8-40); MCH 21.8 pg (25.7-33.7); MCHC 32.5 g/dl (32.0-35.9); MEAN PLT VOLUME 7.4 fl (7.5-11.1); MONO % 6.1 % (3.8-10.2); NEUT % 74.3 % (42.8-82.8); PLATELET COUNT 546 K/MM3 (134-434); RBC 5.12 M/mm3 (4.00-5.60); RDW 16.3 % (11.9-15.9); WHITE BLOOD COUNT 14.3 K/mm3 (4.0-10.8)
[2018-01-22 08:26] LABS: ALBUMIN 2.7 g/dl (3.5-5.0); ALK PHOS 122 U/L (32-92); ANION GAP 8 MMOL/L (8-16); BILIRUBIN,TOTAL 0.4 mg/dl (0.2-1.0); BLOOD UREA NITROGEN 18 mg/dl (7-18); CALCIUM 8.4 mg/dl (8.4-10.2); CHLORIDE 99 mmol/L (98-107); CO2 29 mmol/L (22-28); GLUCOSE,RANDOM 122 mg/dl (74-106); MAGNESIUM 2.1 mg/dL (1.8-2.4); POTASSIUM 4.3 mmol/L (3.5-5.1); SGOT/AST 66 U/L (10-42); SGPT/ALT 79 U/L (10-40); SODIUM 136 mmol/L (136-145); TOT PROT 6.1 g/dl (6.4-8.3)
[2018-01-22] MEDS: INSULIN (LEVEMIR) 100 UNITS/ML UNITS SQ SCH (08:31)
[2018-01-22] MEDS: ALBUTEROL SO4 2.5/IPRATROPIUM 0.5 INH SOL 3 ML VIAL.NEB. NEB SCH ×3 (08:35→20:35)
--- NOTE | 2018-01-22 10:06 | PN ---
Progress Note (short form) - Note Progress Note: PULMONARY REMAINS ON ISOLATION MUCH IMPROVED LOW GRADE TEMP SPO2 99% R/A LES COUGH/NO CP SUGARS ARE STILL HIGH AFB X1 NEGATIVE ANICTERIC CLEAR B/L BREATH SOUNDS S1S2 OBESE BS+ NO EDEMA LABS/MEDS/NOTES/IMAGES REVIEWED CT CHEST NOTED RLL INFILTRATE/EFFUSION/FLUID IN RIGHT MINOR FISSURE POORLY CONTROLLED DIABETES HTN BRONCHIAL ASTHMA CONTINUE CURRENT LINE OF TREATMENT GLYCEMIC CONTROL/BRONCHODILATORS/ANTIBIOTICS ISOLATION PER ID DISCONTINUE STEROIDS CHECK SMEARS R RICKY PADILLA Problem List - Problems (1) Diabetes Code(s): E11.9 - TYPE 2 DIABETES MELLITUS WITHOUT COMPLICATIONS (2) Community acquired bacterial pneumonia Code(s): J15.9 - UNSPECIFIED BACTERIAL PNEUMONIA (3) Sepsis due to pneumonia Code(s): J18.9 - PNEUMONIA, UNSPECIFIED ORGANISM; A41.9 - SEPSIS, UNSPECIFIED ORGANISM (4) Anemia Code(s): D64.9 - ANEMIA, UNSPECIFIED (5) Lactic acid blood increased Code(s): R79.89 - OTHER SPECIFIED ABNORMAL FINDINGS OF BLOOD CHEMISTRY (6) Hypoalbuminemia Code(s): E88.09 - OTH DISORDERS OF PLASMA-PROTEIN METABOLISM, NEC (7) Hypomagnesemia Code(s): E83.42 - HYPOMAGNESEMIA (8) Hypocalcemia Code(s): E83.51 - HYPOCALCEMIA
[2018-01-22] MEDS: FOLIC ACID 1 MG TABLET (FP) PO SCH (10:17)
[2018-01-22] MEDS: guaiFENesin 600 MG TABLET.ER (FP) PO SCH ×2 (10:17→21:25)
[2018-01-22] MEDS: RAMIPRIL 5 MG CAPSULE (FP) PO SCH (10:17)
[2018-01-22] MEDS: ENOXAPARIN NA (PORCINE) 40 MG/0.4 ML DISP.SYRIN SQ SCH (10:18)
[2018-01-22] MEDS: amLODIPine BESYLATE 5 MG TABLET (FP) PO SCH (10:18)
[2018-01-22] MEDS: FAMOTIDINE 20 MG TABLET PO SCH ×2 (10:18→21:25)
[2018-01-22] MEDS: BUDESONIDE/FORMETEROL FUMARATE 80/4.5 mcg INHALER IH SCH ×2 (10:19→21:26)
--- NOTE | 2018-01-22 10:38 | PN ---
Physical Exam: SUBJECTIVE: Patient seen and examined, reports cough has resolved, ambulatory at bedside, steady gait noted. OBJECTIVE: Patient is a 57 y/o male with a past medical history of HTN, NIDDM, chronic right middle lobe lung collapse, and asthma. patient was admitted from the emergency department for sepsis secondary to right middle lobe PNA. Vital Signs Period Temp Pulse Resp BP Sys/Baum Pulse Ox Last 24 Hr 98.2 F-99.1 F 94-98 18-18 136-141/76-81 97-98 GENERAL: The patient is awake, alert, and fully oriented, in no acute distress. HEAD: Normal with no signs of trauma. EYES: PERRL, extraocular movements intact, sclera anicteric, conjunctiva clear. No ptosis. ENT: Ears normal, nares patent, oropharynx clear without exudates, moist mucous membranes. NECK: Trachea midline, full range of motion, supple. LUNGS: Breath sounds equal, clear to auscultation bilaterally to apexes, diminished to right base, no wheezes, no crackles, no accessory muscle use. HEART: Regular rate and rhythm, S1, S2 without murmur, rub or gallop. ABDOMEN: Soft, nontender, nondistended, normoactive bowel sounds, no guarding, no rebound, no hepatosplenomegaly, no masses. EXTREMITIES: 2+ pulses, warm, well-perfused, no edema. NEUROLOGICAL: Cranial nerves II through XII grossly intact. Normal speech, steady gait noted. PSYCH: Normal mood, normal affect. SKIN: Warm, dry, normal turgor, no rashes or lesions noted Laboratory Results - last 24 hr 01/21/18 01/21/18 01/21/18 14:12 18:19 21:54 WBC RBC Hgb Hct MCV MCH MCHC RDW Plt Count MPV Absolute Neuts (auto) Neutrophils % Lymphocytes % Monocytes % Eosinophils % Basophils % Sodium Potassium Chloride Carbon Dioxide Anion Gap BUN Creatinine Creat Clearance w eGFR POC Glucometer 230 186 187 Random Glucose Calcium Magnesium Total Bilirubin AST ALT Alkaline Phosphatase Total Protein Albumin 01/22/18 01/22/18 01/22/18 06:32 07:46 07:46 WBC 14.3 H RBC 5.12 Hgb 11.2 L Hct 34.3 L MCV 67.0 L MCH 21.8 L MCHC 32.5 RDW 16.3 H Plt Count 546 H MPV 7.4 L Absolute Neuts (auto) 10.6 Neutrophils % 74.3 Lymphocytes % 17.2 D Monocytes % 6.1 Eosinophils % 2.4 D Basophils % 0.0 Sodium 136 Potassium 4.3 Chloride 99 Carbon Dioxide 29 H Anion Gap 8 BUN 18 Creatinine 1.0 Creat Clearance w eGFR > 60 POC Glucometer 129 Random Glucose 122 H D Calcium 8.4 Magnesium 2.1 Total Bilirubin 0.4 AST 66 H D ALT 79 H D Alkaline Phosphatase 122 H Total Protein 6.1 L Albumin 2.7 L Active Medications Generic Name Dose Route Start Last Admin Trade Name Freq PRN Reason Stop Dose Admin Acetaminophen 650 mg 01/17/18 15:08 01/18/18 08:59 Tylenol - PO 650 mg Q6H PRN Administration FEVER Albuterol/Ipratropium 1 amp 01/20/18 16:00 01/22/18 08:35 Duoneb - NEB 1 amp RQID [facility] Administration Amlodipine Besylate 5 mg 01/18/18 10:00 01/22/18 10:18 Norvasc - PO 5 mg DAILY [facility] Administration Atorvastatin Calcium 20 mg 01/18/18 22:00 01/21/18 21:55 Lipitor - PO 20 mg HS [facility] Administration Budesonide/Formoterol Fumarate 2 puff 01/18/18 22:00 01/22/18 10:19 Symbicort 80/4.5mcg - IH 2 puff BID [facility] Administration Enoxaparin Sodium 40 mg 01/18/18 10:00 01/22/18 10:18 Lovenox - SQ 40 mg DAILY [facility] Administration Famotidine 20 mg 01/18/18 10:15 01/22/18 10:18 Pepcid - PO 20 mg BID [facility] Administration Folic Acid 1 mg 01/18/18 10:00 01/22/18 10:17 Folic Acid - PO 1 mg DAILY [facility] Administration Guaifenesin 1,200 mg 01/18/18 10:00 01/22/18 10:17 Mucinex - PO 1,200 mg BID [facility] Administration Piperacillin Sod/Tazobactam 100 mls @ 200 mls/hr 01/21/18 10:00 01/22/18 10: 18 Sod 4.5 gm/ Sodium Chloride IVPB 200 mls/hr Q8H-IV [facility] Administration Protocol Insulin Aspart 0 units 01/17/18 22:00 01/22/18 06:35 Novolog Vial SQ Not Given ACHS [facility] Protocol Insulin Detemir 12 units 01/21/18 13:43 01/22/18 08:31 Levemir Vial SQ 12 unit DAILY@0800 [facility] Administration Ramipril 5 mg 01/18/18 10:00 01/22/18 10:17 Altace - PO 5 mg DAILY [facility] Administration Microbiology 01/21/18 10:35 AFB Smear Concentration - Preliminary Sputum - Expectorated Mycobacterial Culture - Preliminary 01/18/18 15:20 AFB Smear Concentration - Final Sputum - Expectorated Direct Acid Fast Bacilli Smear - Final Mycobacterial Culture - Preliminary 01/18/18 15:20 Gram Stain - Final Sputum - Expectorated Sputum Culture - Final Yeast Like Organism 01/17/18 12:03 Blood Culture - Preliminary Blood - Peripheral Venous NO GROWTH OBTAINED AFTER 96 HOURS, INCUBATION TO CONTINUE FOR 1 DAYS. 01/17/18 12:03 Blood Culture - Preliminary Blood - Peripheral Venous NO GROWTH OBTAINED AFTER 96 HOURS, INCUBATION TO CONTINUE FOR [address] of chest: right middle lobe infilitrate w/associated lobe expansion, moderate right pleural effusion ASSESSMENT/PLAN: 1) Acute R-sided Pneumonia, secondary to obstructive process - low grade temp noted, wbc stable, close following -first AFB smear is negative, awaiting 2nd and 3rd results and interforn gold testing - discussed with pulmonary (Dr Lopez) will require outpatient bronchoscopy -Continue with current abx (zosyn) day 2, zithromax and rocephin (01/18-01/21); doing well and tolerating 2) Asthma Exacerbation -Nebs, symbicort, solumedrol d/c'd last dose 01/20/18 -Weaned off O2 -Followup up with pulmonary 3) Suspected RENEE -Needs OP sleep study 4) DM -Uncontrolled with A1c 10, fingersticks improved, will continue Levemir 2 units and continue SSI - dietary consult appreciated 5) HTN -Continue current management; no changes 6) Obesity -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 - New Patient This patient is new to me today: No - Critical Care Critical Care patient: No - Discharge Referral Referred to [facility] No
[2018-01-22] MEDS ORDERED: PIPERACILLIN/TAZOBACTAM 4.5 GM VIAL IVPB ONE (16:36)
[2018-01-22] MEDS ORDERED: SODIUM CHLORIDE 100 ML IVPB ONE (16:36)
[2018-01-22] MEDS: ATORVASTATIN CA 20 MG TABLET (FP) PO SCH (21:25)
[2018-01-23] MEDS ORDERED: PIPERACILLIN/TAZOBACTAM 4.5 GM VIAL IVPB ONE ×3 (01:05→17:41)
[2018-01-23] MEDS ORDERED: SODIUM CHLORIDE 100 ML IVPB ONE ×3 (01:06→17:41)
[2018-01-23] MEDS: PIPERACILLIN/TAZOB 4.5 GM 4.5 GM in SODIUM CHLORIDE 100 ML IVPB SCH ×3 (01:30→17:52)
[2018-01-23] MEDS: INSULIN (NOVOLOG) ASPART 100 UNITS/ML 10ML VIAL SQ SCH ×3 (07:02→22:13)
[2018-01-23] MEDS: ALBUTEROL SO4 2.5/IPRATROPIUM 0.5 INH SOL 3 ML VIAL.NEB. NEB SCH ×5 (08:25→20:09)
[2018-01-23] MEDS: INSULIN (LEVEMIR) 100 UNITS/ML UNITS SQ SCH (08:26)
[2018-01-23 08:38] LABS: HEMATOCRIT 35.9 % (35.4-49); HEMOGLOBIN 11.8 GM/dl (11.7-16.9); MCH 21.9 pg (25.7-33.7); MCHC 32.8 g/dl (32.0-35.9); MEAN CELL VOLUME 66.8 fl (80-96); MEAN PLT VOLUME 7.4 fl (7.5-11.1); PLATELET COUNT 622 K/MM3 (134-434); RBC 5.37 M/mm3 (4.00-5.60); RDW 16.4 % (11.9-15.9); WHITE BLOOD COUNT 15.8 K/mm3 (4.0-10.8)
[2018-01-23 08:47] LABS: ANION GAP 7 MMOL/L (8-16); BLOOD UREA NITROGEN 15 mg/dl (7-18); CALCIUM 8.5 mg/dl (8.4-10.2); CHLORIDE 97 mmol/L (98-107); CO2 28 mmol/L (22-28); CREATININE 1.1 mg/dl (0.6-1.3); GLUCOSE,RANDOM 198 mg/dl (74-106); MAGNESIUM 2.2 mg/dL (1.8-2.4); PHOSPHOROUS 4.1 mg/dl (2.5-4.6); POTASSIUM 4.1 mmol/L (3.5-5.1); SODIUM 132 mmol/L (136-145)
[2018-01-23] MEDS ORDERED: PT OWN MED DRAWER 7, Y5N ONE (09:58)
[2018-01-23 10:06] LABS: PLATELET ESTIMATE INCREASED
[2018-01-23] MEDS: ENOXAPARIN NA (PORCINE) 40 MG/0.4 ML DISP.SYRIN SQ SCH (10:10)
[2018-01-23] MEDS: guaiFENesin 600 MG TABLET.ER (FP) PO SCH ×2 (10:11→21:28)
[2018-01-23] MEDS: BUDESONIDE/FORMETEROL FUMARATE 80/4.5 mcg INHALER IH SCH ×2 (10:12→21:30)
[2018-01-23] MEDS: FAMOTIDINE 20 MG TABLET PO SCH ×2 (10:12→21:29)
[2018-01-23] MEDS: amLODIPine BESYLATE 5 MG TABLET (FP) PO SCH (10:12)
[2018-01-23] MEDS: FOLIC ACID 1 MG TABLET (FP) PO SCH (10:12)
[2018-01-23] MEDS: RAMIPRIL 5 MG CAPSULE (FP) PO SCH (10:12)
--- NOTE | 2018-01-23 14:17 | PN ---
Physical Exam: SUBJECTIVE: Patient seen and examined at bedside. Denies cough, pleuritic chest pain resolved. 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 Emigrated from [place] 16 years ago, last traveled outside [place] 5 years ago. No recent travel. History of hepatitis 30 years ago in [place] ("not hep C, the other kind"). In a monogomous relationship with only. Gives consent for HIV and hepatitis testing. OBJECTIVE: Vital Signs Period Temp Pulse Resp BP Sys/Baum Pulse Ox Last 24 Hr 97.5 F-99.1 F 92-108 16-18 116-142/65-82 95-99 GENERAL: The patient is awake, alert, and fully oriented, in no acute distress. LUNGS: Breath sounds equal, clear to auscultation bilaterally, no wheezes, no crackles, no accessory muscle use. HEART: Regular rate and rhythm, S1, S2 without murmur, rub or gallop. ABDOMEN: Soft, nontender, nondistended EXTREMITIES: 2+ pulses, warm, well-perfused, no edema. NEUROLOGICAL: Cranial nerves II through XII grossly intact. Normal speech, self- positions easily SKIN: Warm, dry, normal turgor Laboratory Results - last 24 hr 01/22/18 01/22/18 01/23/18 16:39 21:37 06:59 WBC RBC Hgb Hct MCV MCH MCHC RDW Plt Count MPV Absolute Neuts (auto) Neutrophils % Neutrophils % (Manual) Lymphocytes % Lymphocytes % (Manual) Monocytes % (Manual) Eosinophils % (Manual) Platelet Estimate Sodium Potassium Chloride Carbon Dioxide Anion Gap BUN Creatinine Creat Clearance w eGFR POC Glucometer 189 174 197 Random Glucose Calcium Phosphorus Magnesium 01/23/18 01/23/18 07:25 07:25 WBC 15.8 H RBC 5.37 Hgb 11.8 Hct 35.9 MCV 66.8 L MCH 21.9 L MCHC 32.8 RDW 16.4 H Plt Count 622 H MPV 7.4 L Absolute Neuts (auto) 13.1 Neutrophils % No Result Required. Neutrophils % (Manual) 74.0 Lymphocytes % No Result Required. Lymphocytes % (Manual) 20.0 D Monocytes % (Manual) 4 Eosinophils % (Manual) 2.0 Platelet Estimate Increased Sodium 132 L Potassium 4.1 Chloride 97 L Carbon Dioxide 28 Anion Gap 7 L BUN 15 Creatinine 1.1 Creat Clearance w eGFR > 60 POC Glucometer Random Glucose 198 H D Calcium 8.5 Phosphorus 4.1 Magnesium 2.2 Active Medications Generic Name Dose Route Start Last Admin Trade Name Freq PRN Reason Stop Dose Admin Acetaminophen 650 mg 01/17/18 15:08 01/18/18 08:59 Tylenol - PO 650 mg Q6H PRN Administration FEVER Albuterol/Ipratropium 1 amp 01/20/18 16:00 01/23/18 08:26 Duoneb - NEB 1 amp RQID [facility] Administration Amlodipine Besylate 5 mg 01/18/18 10:00 01/23/18 10:12 Norvasc - PO 5 mg DAILY [facility] Administration Atorvastatin Calcium 20 mg 01/18/18 22:00 01/22/18 21:25 Lipitor - PO 20 mg HS [facility] Administration Budesonide/Formoterol Fumarate 2 puff 01/18/18 22:00 01/23/18 10:12 Symbicort 80/4.5mcg - IH 2 puff BID [facility] Administration Enoxaparin Sodium 40 mg 01/18/18 10:00 01/23/18 10:10 Lovenox - SQ 40 mg DAILY [facility] Administration Famotidine 20 mg 01/18/18 10:15 01/23/18 10:12 Pepcid - PO 20 mg BID [facility] Administration Folic Acid 1 mg 01/18/18 10:00 01/23/18 10:12 Folic Acid - PO 1 mg DAILY [facility] Administration Guaifenesin 1,200 mg 01/18/18 10:00 01/23/18 10:11 Mucinex - PO 1,200 mg BID [facility] Administration Piperacillin Sod/Tazobactam 100 mls @ 200 mls/hr 01/21/18 10:00 01/23/18 10: 10 Sod 4.5 gm/ Sodium Chloride IVPB 200 mls/hr Q8H-IV [facility] Administration Protocol Insulin Aspart 0 units 01/17/18 22:00 01/23/18 07:02 Novolog Vial SQ 2 unit ACHS [facility] Administration Protocol Insulin Detemir 12 units 01/21/18 13:43 01/23/18 08:26 Levemir Vial SQ 12 unit DAILY@0800 [facility] Administration Ramipril 5 mg 01/18/18 10:00 01/23/18 10:12 Altace - PO 5 mg DAILY [facility] Administration ASSESSMENT/PLAN 57 year-old man with a PMH significant for HTN, HLD, NIDDM, chronic right middle lobe collapse, recurrent pneumonia, and asthma. Admitted for severe sepsis secondary to community acquired pneumonia. Severe sepsis, resolved Community-acquired pneumonia Asthma --01/20 CT chest: opacification with associated expansion of RML c/w infiltrate with several small internal bronchograms; moderate left pleural effusion; trace left pleural effusion; several enlarged mediastinal lymph nodes --as for pneumonia, afebrile, leukocytosis persists although steroids were stopped on 01/20 --r/o TB: first AFB negative, two pending final results --continue Zosyn --continue duonebs Chronic right middle lobe collapse --patient needs bronchoscopy; as per pulmonary, recommend outpatient procedure; will have to check patient's insurance to ensure safe discharge --concern for persistent leukocytosis, worsening thrombocytosis (platelets 622k), and mediastinal lymph nodes --HIV ordered, patient gives permission Transaminitis --AST/ALT slowly trending up --patient with h/o of hepatitis x 30 years ago, unknown type --acute hepatitis panel ordered --[place] liver ordered NIDDM Hyperglycemia --flucose levels running high, increase Levemir from 12 to 15U qam --Novolog sliding scale coverage Hypertension --BP stable --continue amlodipine Hyperlipidemia --continue Lipitor FEN Fluids: PO intake adequate Electrolytes: replete as indicated Nutrition: diabetic diet DVT prophylaxis: subq lovenox Dispo: continues to require inpatient care. Full code. Visit type - Emergency Visit Emergency Visit: Yes ED Registration Date: 01/17/18 Care time: The patient presented to the Emergency Department on the above date and was hospitalized for further evaluation of their emergent condition. - New Patient This patient is new to me today: No - Critical Care Critical Care patient: No
[2018-01-23] MEDS: ATORVASTATIN CA 20 MG TABLET (FP) PO SCH (21:29)
[2018-01-24] MEDS: ACETAMINOPHEN 325 MG TABLET (FP) PO PRN ×2 (01:02→20:06)
[2018-01-24] MEDS: PIPERACILLIN/TAZOB 4.5 GM 4.5 GM in SODIUM CHLORIDE 100 ML IVPB SCH ×4 (02:00→17:14)
[2018-01-24] MEDS ORDERED: PIPERACILLIN/TAZOBACTAM 4.5 GM VIAL IVPB ONE ×3 (03:20→17:04)
[2018-01-24] MEDS ORDERED: SODIUM CHLORIDE 100 ML IVPB ONE ×3 (03:20→17:04)
[2018-01-24] MEDS: INSULIN (NOVOLOG) ASPART 100 UNITS/ML 10ML VIAL SQ SCH ×3 (06:58→16:49)
[2018-01-24] MEDS: INSULIN (LEVEMIR) 100 UNITS/ML UNITS SQ SCH (08:16)
[2018-01-24] MEDS: ALBUTEROL SO4 2.5/IPRATROPIUM 0.5 INH SOL 3 ML VIAL.NEB. NEB SCH ×3 (08:16→20:06)
[2018-01-24 09:40] LABS: EOS % 1.5 % (0-4.5); HEMATOCRIT 35.1 % (35.4-49); HEMOGLOBIN 11.5 GM/dl (11.7-16.9); LYMPH % 7.8 % (8-40); MCH 22.1 pg (25.7-33.7); MCHC 32.8 g/dl (32.0-35.9); MEAN CELL VOLUME 67.3 fl (80-96); MEAN PLT VOLUME 7.6 fl (7.5-11.1); NEUT % 84.7 % (42.8-82.8); PLATELET COUNT 558 K/MM3 (134-434); RBC 5.21 M/mm3 (4.00-5.60); RDW 16.2 % (11.9-15.9); WHITE BLOOD COUNT 21.6 K/mm3 (4.0-10.8)
[2018-01-24 09:41] LABS: INR 1.4 (0.82-1.09); PROTHROMBIN TIME (PATIENT) 15.6 SEC (10.2-13.0)
[2018-01-24] MEDS: FAMOTIDINE 20 MG TABLET PO SCH ×2 (09:42→21:32)
[2018-01-24] MEDS: amLODIPine BESYLATE 5 MG TABLET (FP) PO SCH (09:42)
[2018-01-24] MEDS: RAMIPRIL 5 MG CAPSULE (FP) PO SCH (09:43)
[2018-01-24] MEDS: guaiFENesin 600 MG TABLET.ER (FP) PO SCH ×2 (09:43→21:32)
[2018-01-24] MEDS: BUDESONIDE/FORMETEROL FUMARATE 80/4.5 mcg INHALER IH SCH ×2 (09:43→22:13)
[2018-01-24] MEDS: FOLIC ACID 1 MG TABLET (FP) PO SCH (09:43)
[2018-01-24] MEDS: ENOXAPARIN NA (PORCINE) 40 MG/0.4 ML DISP.SYRIN SQ SCH (09:43)
--- NOTE | 2018-01-24 09:43 | PN ---
Physical Exam: SUBJECTIVE: Patient seen and examined. Complaining of mild, intermittent right flank/right upper back pain x 48 hours. OBJECTIVE: Vital Signs Period Temp Pulse Resp BP Sys/Baum Pulse Ox Last 24 Hr 98.2 F-99.9 F 93-108 18-18 121-133/60-75 95-99 GENERAL: The patient is awake, alert, and fully oriented, in no acute distress. LUNGS: Breath sounds equal, clear to auscultation bilaterally, no wheezes, no crackles, no accessory muscle use. HEART: Regular rate and rhythm, S1, S2 without murmur, rub or gallop. ABDOMEN: Soft, nontender, nondistended EXTREMITIES: 2+ pulses, warm, well-perfused, no edema. NEUROLOGICAL: Cranial nerves II through XII grossly intact. Normal speech, self- positions easily SKIN: Warm, dry, normal turgor Laboratory Results - last 24 hr 01/23/18 01/23/18 01/23/18 07:25 17:03 22:10 Neutrophils % (Manual) 74.0 Lymphocytes % (Manual) 20.0 D Monocytes % (Manual) 4 Eosinophils % (Manual) 2.0 Platelet Estimate Increased PT with INR INR POC Glucometer 185 177 Stool Occult Blood 01/24/18 01/24/18 01/24/18 06:09 08:00 08:00 Neutrophils % (Manual) Lymphocytes % (Manual) Monocytes % (Manual) Eosinophils % (Manual) Platelet Estimate PT with INR 15.6 H INR 1.40 H POC Glucometer 150 Stool Occult Blood Negative Active Medications Generic Name Dose Route Start Last Admin Trade Name Freq PRN Reason Stop Dose Admin Acetaminophen 650 mg 01/17/18 15:08 01/24/18 01:02 Tylenol - PO 650 mg Q6H PRN Administration FEVER Albuterol/Ipratropium 1 amp 01/23/18 20:00 01/24/18 08:16 Duoneb - NEB 1 amp RTID [facility] Administration Amlodipine Besylate 5 mg 01/18/18 10:00 01/23/18 10:12 Norvasc - PO 5 mg DAILY [facility] Administration Atorvastatin Calcium 20 mg 01/18/18 22:00 01/23/18 21:29 Lipitor - PO 20 mg HS [facility] Administration Budesonide/Formoterol Fumarate 2 puff 01/18/18 22:00 01/23/18 21:30 Symbicort 80/4.5mcg - IH 2 puff BID [facility] Administration Enoxaparin Sodium 40 mg 01/18/18 10:00 01/23/18 10:10 Lovenox - SQ 40 mg DAILY [facility] Administration Famotidine 20 mg 01/18/18 10:15 01/23/18 21:29 Pepcid - PO 20 mg BID [facility] Administration Folic Acid 1 mg 01/18/18 10:00 01/23/18 10:12 Folic Acid - PO 1 mg DAILY [facility] Administration Guaifenesin 1,200 mg 01/18/18 10:00 01/23/18 21:28 Mucinex - PO 1,200 mg BID [facility] Administration Piperacillin Sod/Tazobactam 100 mls @ 200 mls/hr 01/21/18 10:00 01/24/18 03: 48 Sod 4.5 gm/ Sodium Chloride IVPB 200 mls/hr Q8H-IV [facility] Administration Protocol Insulin Aspart 0 units 01/17/18 22:00 01/24/18 06:58 Novolog Vial SQ Not Given ACHS [facility] Protocol Insulin Detemir 15 units 01/23/18 18:13 01/24/18 08:16 Levemir Vial SQ 15 units DAILY@0800 [facility] Administration Ramipril 5 mg 01/18/18 10:00 01/23/18 10:12 Altace - PO 5 mg DAILY [facility] Administration ASSESSMENT/PLAN 57 year-old man with a PMH significant for HTN, HLD, NIDDM, chronic right middle lobe collapse, recurrent pneumonia, and asthma. Admitted for severe sepsis secondary to community acquired pneumonia. Severe sepsis, resolved Community-acquired pneumonia Asthma --01/20 CT chest: opacification with associated expansion of RML c/w infiltrate with several small internal bronchograms; moderate left pleural effusion; trace left pleural effusion; several enlarged mediastinal lymph nodes --worsening leukocytosis WBC spike to 21.6k (steroids were stopped on 01/20) --r/o TB: AFB smears neg x 3 --continue Zosyn --continue duonebs --HIV negative Chronic right middle lobe collapse --patient needs bronchoscopy; as per pulmonary, recommend outpatient procedure; will have to check patient's insurance to ensure safe discharge; discuss with pulm Transaminitis --AST today wnl; ALT trending down --patient with h/o of hepatitis x 30 years ago, unknown type --acute hepatitis panel ordered --[place] liver ordered NIDDM Hyperglycemia --glucose levels improved on increased Levemir --Novolog sliding scale coverage Hypertension --BP stable --continue amlodipine Hyperlipidemia --continue Lipitor FEN Fluids: PO intake adequate Electrolytes: replete as indicated Nutrition: diabetic diet DVT prophylaxis: subq lovenox Dispo: continues to require inpatient care. Full code. Visit type - Emergency Visit Emergency Visit: Yes ED Registration Date: 01/17/18 Care time: The patient presented to the Emergency Department on the above date and was hospitalized for further evaluation of their emergent condition. - New Patient This patient is new to me today: No - Critical Care Critical Care patient: No
[2018-01-24 10:28] LABS: BLOOD UREA NITROGEN 16 mg/dl (7-18); GLUCOSE,RANDOM 133 mg/dl (74-106)
[2018-01-24 10:29] LABS: ALBUMIN 2.9 g/dl (3.5-5.0); ANION GAP 10 MMOL/L (8-16); BILIRUBIN,DIRECT 0.2 mg/dL (0.0-0.3); BILIRUBIN,TOTAL 0.7 mg/dl (0.2-1.0); CALCIUM 8.8 mg/dl (8.4-10.2); CHLORIDE 95 mmol/L (98-107); CO2 26 mmol/L (22-28); CREATININE 1.2 mg/dl (0.6-1.3); MAGNESIUM 2.2 mg/dL (1.8-2.4); POTASSIUM 5.5 mmol/L (3.5-5.1); SGOT/AST 25 U/L (10-42); SODIUM 131 mmol/L (136-145); TOT PROT 6.7 g/dl (6.4-8.3)
[2018-01-24 10:30] LABS: ALK PHOS 96 U/L (32-92); SGPT/ALT 57 U/L (10-40)
[2018-01-24 19:19] LABS: BLOOD UREA NITROGEN 15 mg/dl (7-18); GLUCOSE,RANDOM 119 mg/dl (74-106); POTASSIUM 3.9 mmol/L (3.5-5.1); SODIUM 128 mmol/L (136-145)
[2018-01-24 19:20] LABS: ANION GAP 7 MMOL/L (8-16); CALCIUM 8.4 mg/dl (8.4-10.2); CHLORIDE 98 mmol/L (98-107); CO2 23 mmol/L (22-28)
[2018-01-24] MEDS ORDERED: SODIUM CHLORIDE 1,000 ML IV SCH (20:00)
[2018-01-24] MEDS ORDERED: SODIUM CHLORIDE 500 ML IV STA (20:05)
[2018-01-24] MEDS: ATORVASTATIN CA 20 MG TABLET (FP) PO SCH (21:32)
[2018-01-25] MEDS ORDERED: PIPERACILLIN/TAZOBACTAM 4.5 GM VIAL IVPB ONE ×2 (03:14→16:37)
[2018-01-25] MEDS ORDERED: SODIUM CHLORIDE 100 ML IVPB ONE ×2 (03:14→16:37)
[2018-01-25] MEDS: PIPERACILLIN/TAZOB 4.5 GM 4.5 GM in SODIUM CHLORIDE 100 ML IVPB SCH ×3 (03:27→17:00)
[2018-01-25] MEDS: INSULIN (NOVOLOG) ASPART 100 UNITS/ML 10ML VIAL SQ SCH ×3 (07:13→16:21)
[2018-01-25] MEDS ORDERED: ALBUTEROL SO4 0.083% IH SOL 2.5 MG/3 ML VIAL.NEB. NEB ONE (07:45)
[2018-01-25] MEDS: ALBUTEROL SO4 2.5/IPRATROPIUM 0.5 INH SOL 3 ML VIAL.NEB. NEB SCH ×2 (07:45→13:54)
[2018-01-25] MEDS ORDERED: IPRATROPIUM BR 0.02% 0.5 MG/2.5 ML VIAL.NEB. NEB ONE (07:45)
[2018-01-25] MEDS: INSULIN (LEVEMIR) 100 UNITS/ML UNITS SQ SCH (08:45)
--- NOTE | 2018-01-25 09:05 | PN ---
Progress Note, Physician History of Present Illness: Awake, alert OOB in chair No complaints Denies chest pain/ dyspnea Still with cough Denies sputum production/ hemoptysis No c/o fever/ chills Now with low grade fever, worsening leukocytosis and hyponatremia AFB (-) - Current Medication List Current Medications: Active Medications Acetaminophen (Tylenol -) 650 mg PO Q6H PRN PRN Reason: FEVER Last Admin: 01/24/18 20:06 Dose: 650 mg Albuterol/Ipratropium (Duoneb -) 1 amp NEB RTID [facility] Last Admin: 01/25/18 07:45 Dose: 1 amp Amlodipine Besylate (Norvasc -) 5 mg PO DAILY [facility] Last Admin: 01/24/18 09:42 Dose: 5 mg Atorvastatin Calcium (Lipitor -) 20 mg PO HS [facility] Last Admin: 01/24/18 21:32 Dose: 20 mg Budesonide/Formoterol Fumarate (Symbicort 80/4.5mcg -) 2 puff IH BID [facility] Last Admin: 01/24/18 22:13 Dose: 2 puff Enoxaparin Sodium (Lovenox -) 40 mg SQ DAILY [facility] Last Admin: 01/24/18 09:43 Dose: 40 mg Famotidine (Pepcid -) 20 mg PO BID [facility] Last Admin: 01/24/18 21:32 Dose: 20 mg Folic Acid (Folic Acid -) 1 mg PO DAILY [facility] Last Admin: 01/24/18 09:43 Dose: 1 mg Guaifenesin (Mucinex -) 1,200 mg PO BID [facility] Last Admin: 01/24/18 21:32 Dose: 1,200 mg Piperacillin Sod/Tazobactam (Sod 4.5 gm/ Sodium Chloride) 100 mls @ 200 mls/hr IVPB Q8H-IV [facility]; Protocol Last Admin: 01/25/18 03:27 Dose: 200 mls/hr Sodium Chloride (Normal Saline -) 1,000 mls @ 75 mls/hr IV ASDIR [facility] Last Admin: 01/25/18 07:12 Dose: 75 mls/hr Insulin Aspart (Novolog Vial) 0 units SQ ACHS [facility]; Protocol Last Admin: 01/25/18 07:13 Dose: Not Given Insulin Detemir (Levemir Vial) 15 units SQ DAILY@0800 [facility] Last Admin: 01/25/18 08:45 Dose: 15 units Ramipril (Altace -) 5 mg PO DAILY [facility] Last Admin: 01/24/18 09:43 Dose: 5 mg - Objective Vital Signs: Vital Signs Temperature 99.1 F 01/25/18 04:00 Pulse Rate 98 H 01/25/18 04:00 Respiratory Rate 18 01/25/18 04:00 Blood Pressure 120/66 01/25/18 04:00 O2 Sat by Pulse Oximetry (%) 96 01/24/18 20:17 Constitutional: Yes: No Distress Eyes: Yes: Conjunctiva Clear Cardiovascular: Yes: Regular Rate and Rhythm, S1, S2 Respiratory: Yes: Other (absent BS R lung field L lung clear) Gastrointestinal: Yes: Normal Bowel Sounds, Soft, Abdomen, Obese. No: Tenderness Edema: No Labs: CBC, BMP 01/24/18 08:00 01/24/18 17:34 INR, PTT INR 1.40 (0.82-1.09) H 01/24/18 08:00 Assessment/Plan RML consolidation/ atelectatic lung ? post obstructive Low grade fever/ worsening leukocytosis Hyponatremia ? paraneoplastic syndrome Repeat CXR Continue Zosyn Pulmonary follow up D/C AFB isolation
[2018-01-25 09:29] LABS: BASO % 0.6 % (0-2.0); EOS % 0.8 % (0-4.5); HEMATOCRIT 34.3 % (35.4-49); HEMOGLOBIN 10.7 GM/dl (11.7-16.9); LYMPH % 5.5 % (8-40); MCH 20.6 pg (25.7-33.7); MCHC 31.1 g/dl (32.0-35.9); MEAN CELL VOLUME 66.3 fl (80-96); MEAN PLT VOLUME 7.3 fl (7.5-11.1); MONO % 5.3 % (3.8-10.2); NEUT % 87.8 % (42.8-82.8); PLATELET COUNT 532 K/MM3 (134-434); RBC 5.17 M/mm3 (4.00-5.60); RDW 16.6 % (11.9-15.9); WHITE BLOOD COUNT 19.6 K/mm3 (4.0-10.8)
[2018-01-25 09:38] LABS: ADD RBC MORPHOLOGY YES
[2018-01-25] MEDS ORDERED: PT OWN MED DRAWER 7, Y5N ONE (09:55)
[2018-01-25] MEDS: BUDESONIDE/FORMETEROL FUMARATE 80/4.5 mcg INHALER IH SCH ×2 (09:56→22:21)
[2018-01-25 09:57] LABS: BLOOD UREA NITROGEN 16 mg/dl (7-18); CHLORIDE 100 mmol/L (98-107); CO2 21 mmol/L (22-28); CREATININE 1.1 mg/dl (0.6-1.3); GLUCOSE,RANDOM 155 mg/dl (74-106); SODIUM 130 mmol/L (136-145)
[2018-01-25] MEDS: FOLIC ACID 1 MG TABLET (FP) PO SCH (09:57)
[2018-01-25] MEDS: RAMIPRIL 5 MG CAPSULE (FP) PO SCH (09:57)
[2018-01-25] MEDS: guaiFENesin 600 MG TABLET.ER (FP) PO SCH ×2 (09:57→22:21)
[2018-01-25] MEDS: ENOXAPARIN NA (PORCINE) 40 MG/0.4 ML DISP.SYRIN SQ SCH (09:57)
[2018-01-25 09:58] LABS: ALBUMIN 2.7 g/dl (3.5-5.0); ALK PHOS 88 U/L (32-92); ANION GAP 9 MMOL/L (8-16); BILIRUBIN,TOTAL 0.7 mg/dl (0.2-1.0); CALCIUM 8.2 mg/dl (8.4-10.2); SGOT/AST 17 U/L (10-42); SGPT/ALT 39 U/L (10-40); TOT PROT 6.8 g/dl (6.4-8.3)
[2018-01-25] MEDS: amLODIPine BESYLATE 5 MG TABLET (FP) PO SCH (09:58)
[2018-01-25] MEDS: FAMOTIDINE 20 MG TABLET PO SCH (09:58)
--- NOTE | 2018-01-25 10:34 | PN ---
Physical Exam: SUBJECTIVE: Patient seen and examined oob to chair. Showered today. Voices no complaints. OBJECTIVE: Vital Signs Period Temp Pulse Resp BP Sys/Baum Pulse Ox Last 24 Hr 98.3 F-100.8 F 94-102 18-22 120-127/66-71 96-96 GENERAL: The patient is awake, alert, and fully oriented, in no acute distress. LUNGS: Diminished breath sounds on right middle and lower HEART: Regular rate and rhythm, S1, S2 without murmur, rub or gallop. ABDOMEN: Soft, nontender, nondistended EXTREMITIES: 2+ pulses, warm, well-perfused, no edema. No calf tenderness NEUROLOGICAL: Cranial nerves II through XII grossly intact. Normal speech, steady gait SKIN: Warm, dry, normal turgor Laboratory Results - last 24 hr 01/24/18 01/24/18 01/24/18 11:10 16:45 17:34 WBC RBC Hgb Hct MCV MCH MCHC RDW Plt Count MPV Absolute Neuts (auto) Neutrophils % Lymphocytes % Monocytes % Eosinophils % Basophils % Sodium 128 L Potassium 3.9 D Chloride 98 Carbon Dioxide 23 Anion Gap 7 L BUN 15 Creatinine 1.0 Creat Clearance w eGFR > 60 POC Glucometer 278 153 Random Glucose 119 H Calcium 8.4 Magnesium Total Bilirubin AST ALT Alkaline Phosphatase Total Protein Albumin 01/24/18 01/25/18 01/25/18 21:41 05:46 09:08 WBC 19.6 H RBC 5.17 Hgb 10.7 L Hct 34.3 L MCV 66.3 L MCH 20.6 L MCHC 31.1 L RDW 16.6 H Plt Count 532 H MPV 7.3 L Absolute Neuts (auto) 17.2 Neutrophils % 87.8 H Lymphocytes % 5.5 L D Monocytes % 5.3 Eosinophils % 0.8 Basophils % 0.6 D Sodium Potassium Chloride Carbon Dioxide Anion Gap BUN Creatinine Creat Clearance w eGFR POC Glucometer 139 136 Random Glucose Calcium Magnesium Total Bilirubin AST ALT Alkaline Phosphatase Total Protein Albumin 01/25/18 09:08 WBC RBC Hgb Hct MCV MCH MCHC RDW Plt Count MPV Absolute Neuts (auto) Neutrophils % Lymphocytes % Monocytes % Eosinophils % Basophils % Sodium 130 L Potassium 4.0 Chloride 100 Carbon Dioxide 21 L Anion Gap 9 BUN 16 Creatinine 1.1 Creat Clearance w eGFR > 60 POC Glucometer Random Glucose 155 H D Calcium 8.2 L Magnesium 2.0 Total Bilirubin 0.7 AST 17 D ALT 39 D Alkaline Phosphatase 88 Total Protein 6.8 Albumin 2.7 L Active Medications Generic Name Dose Route Start Last Admin Trade Name Freq PRN Reason Stop Dose Admin Acetaminophen 650 mg 01/17/18 15:08 01/24/18 20:06 Tylenol - PO 650 mg Q6H PRN Administration FEVER Albuterol/Ipratropium 1 amp 01/23/18 20:00 01/25/18 07:45 Duoneb - NEB 1 amp RTID [facility] Administration Amlodipine Besylate 5 mg 01/18/18 10:00 01/25/18 09:58 Norvasc - PO 5 mg DAILY [facility] Administration Atorvastatin Calcium 20 mg 01/18/18 22:00 01/24/18 21:32 Lipitor - PO 20 mg HS [facility] Administration Budesonide/Formoterol Fumarate 2 puff 01/18/18 22:00 01/25/18 09:56 Symbicort 80/4.5mcg - IH 2 puff BID [facility] Administration Enoxaparin Sodium 40 mg 01/18/18 10:00 01/25/18 09:57 Lovenox - SQ 40 mg DAILY [facility] Administration Famotidine 20 mg 01/18/18 10:15 01/25/18 09:58 Pepcid - PO 20 mg BID [facility] Administration Folic Acid 1 mg 01/18/18 10:00 01/25/18 09:57 Folic Acid - PO 1 mg DAILY [facility] Administration Guaifenesin 1,200 mg 01/18/18 10:00 01/25/18 09:57 Mucinex - PO 1,200 mg BID [facility] Administration Piperacillin Sod/Tazobactam 100 mls @ 200 mls/hr 01/21/18 10:00 01/25/18 03: 27 Sod 4.5 gm/ Sodium Chloride IVPB 200 mls/hr Q8H-IV [facility] Administration Protocol Sodium Chloride 1,000 mls @ 75 mls/hr 01/24/18 20:00 01/25/18 07:12 Normal Saline - IV 75 mls/hr ASDIR [facility] Administration Insulin Aspart 0 units 01/17/18 22:00 01/25/18 07:13 Novolog Vial SQ Not Given ACHS [facility] Protocol Insulin Detemir 15 units 01/23/18 18:13 01/25/18 08:45 Levemir Vial SQ 15 units DAILY@0800 [facility] Administration Ramipril 5 mg 01/18/18 10:00 01/25/18 09:57 Altace - PO 5 mg DAILY [facility] Administration ASSESSMENT/PLAN 57 year-old man with a PMH significant for HTN, HLD, NIDDM, chronic right middle lobe collapse, recurrent pneumonia, and asthma. Admitted for severe sepsis secondary to community acquired pneumonia. Severe sepsis secondary to community-acquired pneumonia Asthma --01/20 CT chest: opacification with associated expansion of RML c/w infiltrate with several small internal bronchograms; moderate left pleural effusion; trace left pleural effusion; several enlarged mediastinal lymph nodes --Tm 100.8, WBC 19.6k (steroids were stopped on 01/20) --r/o TB: AFB smears neg x 3; quant gold pending --continue Zosyn --continue duonebs --HIV negative Chronic right middle lobe collapse --clinically worse --patient needs bronchoscopy; Dr. Norwood in agreement Transaminitis h/o hepatitis --AST/ALT have normalized --01/25 US: fatty liver; partially distended gallbladder no stones, no fluid --acute hepatitis panel pending Hyponatremia --likely low volume state secondary to fever, sepsis --gave 1L bolus yesterday, continue IV fluids NIDDM Hyperglycemia --glucose levels improved on increased Levemir --Novolog sliding scale coverage Hypertension --BP stable --continue amlodipine Hyperlipidemia --continue Lipitor FEN Fluids: NS @ 125 mL/hr Electrolytes: replete as indicated Nutrition: diabetic diet DVT prophylaxis: subq lovenox Dispo: continues to require inpatient care. Full code. Visit type - Emergency Visit Emergency Visit: Yes ED Registration Date: 01/17/18 Care time: The patient presented to the Emergency Department on the above date and was hospitalized for further evaluation of their emergent condition. - New Patient This patient is new to me today: No - Critical Care Critical Care patient: No
[2018-01-25] MEDS ORDERED: SODIUM CHLORIDE 1,000 ML IV SCH (10:46)
[2018-01-25] MEDS ORDERED: INSULIN (NOVOLOG) ASPART 100 UNITS/ML 10ML VIAL ONE (11:28)
[2018-01-25 12:27] LABS: ANISOCYTOSIS 1+; OVALOCYTE 2+
[2018-01-25 12:28] LABS: PLATELET ESTIMATE ADEQUATE
[2018-01-25] MEDS: ACETAMINOPHEN 325 MG TABLET (FP) PO PRN ×2 (13:55→20:13)
--- NOTE | 2018-01-25 15:19 | PN ---
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 WILL ARRANGE TRANSFER R RICKY PADILLA Problem List - Problems (1) Diabetes Code(s): E11.9 - TYPE 2 DIABETES MELLITUS WITHOUT COMPLICATIONS (2) Community acquired bacterial pneumonia Code(s): J15.9 - UNSPECIFIED BACTERIAL PNEUMONIA (3) Sepsis due to pneumonia Code(s): J18.9 - PNEUMONIA, UNSPECIFIED ORGANISM; A41.9 - SEPSIS, UNSPECIFIED ORGANISM (4) Anemia Code(s): D64.9 - ANEMIA, UNSPECIFIED (5) Lactic acid blood increased Code(s): R79.89 - OTHER SPECIFIED ABNORMAL FINDINGS OF BLOOD CHEMISTRY (6) Hypoalbuminemia Code(s): E88.09 - OTH DISORDERS OF PLASMA-PROTEIN METABOLISM, NEC (7) Hypomagnesemia Code(s): E83.42 - HYPOMAGNESEMIA (8) Hypocalcemia Code(s): E83.51 - HYPOCALCEMIA
[2018-01-25 15:31] LABS: PH,URINE 5.5 (4.5-8); URINE APPEARANCE Clear; URINE BILIRUBIN Negative (NEGATIVE); URINE COLOR Yellow; URINE GLUCOSE (UA) Negative (NEGATIVE); URINE KETONE Negative (NEGATIVE); URINE LEUK ESTERASE Negative (NEGATIVE); URINE NITRITE Negative (NEGATIVE); URINE PROTEIN Trace (NEGATIVE); URINE UROBILINOGEN 0.2 (0.2-1.0)
[2018-01-25 15:32] LABS: EPI CELLS FEW /HPF; URINE WBC 0-2 (0-2)
[2018-01-25 16:22] LABS: HEP.C VIRUS AB <0.1 s/co ratio (0.0-0.9)
[2018-01-25] MEDS: ATORVASTATIN CA 20 MG TABLET (FP) PO SCH (22:22)
[2018-01-25] MEDS: RANITIDINE HCL 150 MG TABLET (FP) PO SCH (22:22)
[2018-01-25] MEDS: SODIUM CHLORIDE 1,000 ML IV SCH (22:22)
[2018-01-25] MEDS: INSULIN SLIDING SCALE (NOVOLOG) 1 VIAL SQ SCH (22:23)
[2018-01-26] MEDS ORDERED: PIPERACILLIN/TAZOBACTAM 4.5 GM VIAL IVPB ONE ×3 (01:12→17:24)
[2018-01-26] MEDS ORDERED: SODIUM CHLORIDE 100 ML IVPB ONE ×2 (01:12→09:26)
[2018-01-26] MEDS: ACETAMINOPHEN 325 MG TABLET (FP) PO PRN ×2 (01:58→17:38)
[2018-01-26] MEDS: PIPERACILLIN/TAZOB 4.5 GM 4.5 GM in SODIUM CHLORIDE 100 ML IVPB SCH ×3 (01:58→17:38)
[2018-01-26] MEDS: SODIUM CHLORIDE 1,000 ML IV SCH ×2 (06:30→22:03)
[2018-01-26] MEDS: INSULIN SLIDING SCALE (NOVOLOG) 1 VIAL SQ SCH ×4 (06:35→22:06)
[2018-01-26 08:12] LABS: BASO % 0.4 % (0-2.0); EOS % 1.5 % (0-4.5); HEMATOCRIT 33.1 % (35.4-49); HEMOGLOBIN 10.1 GM/dL (11.7-16.9); MCH 20.1 pg (25.7-33.7); MCHC 30.6 g/dl (32.0-35.9); MEAN CELL VOLUME 65.6 fl (80-96); MEAN PLT VOLUME 7.4 fl (7.5-11.1); MONO % 12.8 % (3.8-10.2); NEUT % 76.3 % (42.8-82.8); PLATELET COUNT 465 K/MM3 (134-434); RBC 5.04 M/mm3 (4.00-5.60); RDW 17.9 % (11.9-15.9); WHITE BLOOD COUNT 16.9 K/mm3 (4.0-10.0)
[2018-01-26] MEDS: ALBUTEROL SO4 2.5/IPRATROPIUM 0.5 INH SOL 3 ML VIAL.NEB. NEB SCH ×3 (08:50→20:45)
[2018-01-26 08:58] LABS: ALBUMIN 2.5 g/dl (3.4-5.0); ALK PHOS 115 U/L (45-117); ANION GAP 9 MMOL/L (8-16); BILIRUBIN,TOTAL 0.6 mg/dL (0.2-1); BLOOD UREA NITROGEN 14 mg/dL (7-18); CALCIUM 8.3 mg/dL (8.5-10.1); CHLORIDE 104 mmol/L (98-107); CO2 24 mmol/L (21-32); CREATININE 1.1 mg/dL (0.55-1.3); GLUCOSE,RANDOM 78 mg/dL (74-106); MAGNESIUM 2.6 mg/dL (1.8-2.4); POTASSIUM 4.3 mmol/L (3.5-5.1); SGOT/AST 17 U/L (15-37); SGPT/ALT 31 U/L (13-61); SODIUM 138 mmol/L (136-145)
[2018-01-26] MEDS: INSULIN (LEVEMIR) 100 UNITS/ML UNITS SQ SCH (09:00)
[2018-01-26] MEDS ORDERED: PT OWN MED DRAWER 7, Y5N ONE ×3 (09:26→21:25)
[2018-01-26] MEDS: amLODIPine BESYLATE 5 MG TABLET (FP) PO SCH (09:29)
[2018-01-26] MEDS: RAMIPRIL 5 MG CAPSULE (FP) PO SCH (09:29)
[2018-01-26] MEDS: guaiFENesin 600 MG TABLET.ER (FP) PO SCH ×2 (09:29→22:04)
[2018-01-26] MEDS: BUDESONIDE/FORMETEROL FUMARATE 80/4.5 mcg INHALER IH SCH ×2 (09:30→22:04)
[2018-01-26] MEDS: RANITIDINE HCL 150 MG TABLET (FP) PO SCH ×2 (12:29→22:04)
[2018-01-26] MEDS: FOLIC ACID 1 MG TABLET (FP) PO SCH (12:29)
[2018-01-26 13:28] LABS: PLEURAL FLUID APPEARANCE CLEAR; PLEURAL FLUID COLOR YELLOW
[2018-01-26 13:29] LABS: PLEURAL FLUID RBC 3976 /mm3
--- NOTE | 2018-01-26 13:52 | PN ---
Progress Note, Physician History of Present Illness: pulmonary alert,s/p pigtail insertion,-sob - Current Medication List Current Medications: Active Medications Acetaminophen (Tylenol -) 650 mg PO Q6H PRN PRN Reason: FEVER Last Admin: 01/26/18 01:58 Dose: 650 mg Albuterol/Ipratropium (Duoneb -) 1 amp NEB RTID [facility] Last Admin: 01/26/18 08:50 Dose: 1 amp Amlodipine Besylate (Norvasc -) 5 mg PO DAILY [facility] Last Admin: 01/26/18 09:29 Dose: 5 mg Atorvastatin Calcium (Lipitor -) 20 mg PO HS [facility] Last Admin: 01/25/18 22:22 Dose: 20 mg Budesonide/Formoterol Fumarate (Symbicort 80/4.5mcg -) 2 puff IH BID [facility] Last Admin: 01/26/18 09:30 Dose: 2 puff Folic Acid (Folic Acid -) 1 mg PO DAILY [facility] Last Admin: 01/26/18 12:29 Dose: 1 mg Guaifenesin (Mucinex -) 1,200 mg PO BID [facility] Last Admin: 01/26/18 09:29 Dose: 1,200 mg Piperacillin Sod/Tazobactam (Sod 4.5 gm/ Sodium Chloride) 100 mls @ 200 mls/hr IVPB Q8H-IV [facility]; Protocol Last Admin: 01/26/18 12:29 Dose: 200 mls/hr Sodium Chloride (Normal Saline -) 1,000 mls @ 125 mls/hr IV ASDIR [facility] Last Admin: 01/26/18 06:30 Dose: 125 mls/hr Insulin Aspart (Novolog Vial Sliding Scale -) 1 vial SQ ACHS [facility]; Protocol Last Admin: 01/26/18 12:28 Dose: 2 units Insulin Detemir (Levemir Vial) 15 units SQ DAILY@0800 [facility] Last Admin: 01/26/18 09:00 Dose: Not Given Ramipril (Altace -) 5 mg PO DAILY [facility] Last Admin: 01/26/18 09:29 Dose: 5 mg Ranitidine HCl (Zantac -) 150 mg PO BID [facility] Last Admin: 01/26/18 12:29 Dose: 150 mg - Objective Vital Signs: Vital Signs Temperature 98.8 F 01/26/18 09:00 Pulse Rate 101 H 01/26/18 10:50 Respiratory Rate 21 H 01/26/18 10:50 Blood Pressure 110/60 01/26/18 10:50 O2 Sat by Pulse Oximetry (%) 97 01/26/18 10:50 Constitutional: Yes: Well Nourished, Calm Eyes: Yes: WNL HENT: Yes: WNL Neck: Yes: WNL Cardiovascular: Yes: Regular Rate and Rhythm, S1, S2 Respiratory: Yes: CTA Bilaterally Gastrointestinal: Yes: Normal Bowel Sounds, Soft Extremities: Yes: WNL Edema: No Labs: CBC, BMP 01/26/18 07:30 01/26/18 07:30 INR, PTT INR 1.40 (0.82-1.09) H 01/24/18 08:00 Assessment/Plan Problem List - Problems (1) Diabetes Code(s): E11.9 - TYPE 2 DIABETES MELLITUS WITHOUT COMPLICATIONS (2) Community acquired bacterial pneumonia Code(s): J15.9 - UNSPECIFIED BACTERIAL PNEUMONIA (3) Sepsis due to pneumonia Code(s): J18.9 - PNEUMONIA, UNSPECIFIED ORGANISM; A41.9 - SEPSIS, UNSPECIFIED ORGANISM (4) Anemia Code(s): D64.9 - ANEMIA, UNSPECIFIED (5) Lactic acid blood increased Code(s): R79.89 - OTHER SPECIFIED ABNORMAL FINDINGS OF BLOOD CHEMISTRY (6) Hypoalbuminemia Code(s): E88.09 - OTH DISORDERS OF PLASMA-PROTEIN METABOLISM, NEC (7) Hypomagnesemia Code(s): E83.42 - HYPOMAGNESEMIA (8) Hypocalcemia Code(s): E83.51 - HYPOCALCEMIA Assessment/Plan PNEUMONIA OBESITY ASTHMA LIKELY SLEEP APNEA PLAN ABX O2 NEEDED INHALED BRONCHODILATORS SLEEP STUDIES OUTPATIENT CHECK PLEURAL FLUID CHEMISTRIES F/U CHEST X-RAY DR DE JESUS
[2018-01-26 15:25] LABS: BODY FLUID MONOCYTE 12 %; BODYL FLD EOSINOPHIL 1 %; PLEURAL FLUID LYMPHOCYTES 10 %; PLEURAL FLUID NEUTROPHIL 77 %
--- NOTE | 2018-01-26 15:57 | PN ---
Physical Exam: SUBJECTIVE: Patient seen and examined at the bedside. s/p right pig tail to chest tube on wall suction states he feels well, no pain or shortness of breath OBJECTIVE: Vital Signs Period Temp Pulse Resp BP Sys/Baum Pulse Ox Last 24 Hr 98.0 F-102.3 F 89-114 17-22 110-151/57-83 94-98 GENERAL: The patient is awake, alert, and fully oriented, in no acute distress. HEAD: Normal with no signs of trauma. EYES: PERRL, extraocular movements intact, sclera anicteric, conjunctiva clear. No ptosis. ENT: Ears normal, nares patent, oropharynx clear without exudates, moist mucous membranes. NECK: Trachea midline, full range of motion, supple. LUNGS: right lung s/p pig tail placement, diminished breath sounds. HEART: Regular rate and rhythm ABDOMEN: Soft, nontender, nondistended, normoactive bowel sounds, no guarding, no rebound, no hepatosplenomegaly, no masses. EXTREMITIES: no edema. NEUROLOGICAL: Normal speech, gait not observed. PSYCH: Normal mood, normal affect. Laboratory Results - last 24 hr 01/24/18 01/25/18 01/25/18 08:00 15:18 16:18 WBC RBC Hgb Hct MCV MCH MCHC RDW Plt Count MPV Absolute Neuts (auto) Neutrophils % Lymphocytes % Monocytes % Eosinophils % Basophils % Nucleated RBC % Sodium Potassium Chloride Carbon Dioxide Anion Gap BUN Creatinine Creat Clearance w eGFR POC Glucometer 129 Random Glucose Lactic Acid 1.0 Calcium Phosphorus Magnesium Total Bilirubin AST ALT Alkaline Phosphatase Total Protein Albumin Pleural Fluid Source Pleural Color Pleural Appearance Pleural WBC Pleural RBC Pleural Neutrophils Pleural Lymphocytes Pleural Monocytes Pleural Eosinophils Hepatitis A IgM Ab Negative Hep Bs Antigen Negative Hep B Core IgM Ab Negative Hepatitis C Antibody <0.1 01/25/18 01/26/18 01/26/18 21:31 06:34 07:30 WBC 16.9 H RBC 5.04 Hgb 10.1 L Hct 33.1 L MCV 65.6 L MCH 20.1 L MCHC 30.6 L RDW 17.9 H Plt Count 465 H MPV 7.4 L Absolute Neuts (auto) 12.9 H Neutrophils % 76.3 Lymphocytes % 9.0 Monocytes % 12.8 H Eosinophils % 1.5 Basophils % 0.4 Nucleated RBC % 0 Sodium Potassium Chloride Carbon Dioxide Anion Gap BUN Creatinine Creat Clearance w eGFR POC Glucometer 165 95 Random Glucose Lactic Acid Calcium Phosphorus Magnesium Total Bilirubin AST ALT Alkaline Phosphatase Total Protein Albumin Pleural Fluid Source Pleural Color Pleural Appearance Pleural WBC Pleural RBC Pleural Neutrophils Pleural Lymphocytes Pleural Monocytes Pleural Eosinophils Hepatitis A IgM Ab Hep Bs Antigen Hep B Core IgM Ab Hepatitis C Antibody 01/26/18 01/26/18 01/26/18 07:30 08:59 10:45 WBC RBC Hgb Hct MCV MCH MCHC RDW Plt Count MPV Absolute Neuts (auto) Neutrophils % Lymphocytes % Monocytes % Eosinophils % Basophils % Nucleated RBC % Sodium 138 Potassium 4.3 Chloride 104 Carbon Dioxide 24 Anion Gap 9 BUN 14 Creatinine 1.1 Creat Clearance w eGFR > 60 POC Glucometer 98 Random Glucose 78 Lactic Acid Calcium 8.3 L Phosphorus 4.0 Magnesium 2.6 H Total Bilirubin 0.6 AST 17 ALT 31 Alkaline Phosphatase 115 Total Protein 7.0 Albumin 2.5 L Pleural Fluid Source Pleural fluid Pleural Color Yellow Pleural Appearance Clear Pleural WBC 395 Pleural RBC 3976 Pleural Neutrophils 77 Pleural Lymphocytes 10 Pleural Monocytes 12 Pleural Eosinophils 1 Hepatitis A IgM Ab Hep Bs Antigen Hep B Core IgM Ab Hepatitis C Antibody 01/26/18 12:26 WBC RBC Hgb Hct MCV MCH MCHC RDW Plt Count MPV Absolute Neuts (auto) Neutrophils % Lymphocytes % Monocytes % Eosinophils % Basophils % Nucleated RBC % Sodium Potassium Chloride Carbon Dioxide Anion Gap BUN Creatinine Creat Clearance w eGFR POC Glucometer 165 Random Glucose Lactic Acid Calcium Phosphorus Magnesium Total Bilirubin AST ALT Alkaline Phosphatase Total Protein Albumin Pleural Fluid Source Pleural Color Pleural Appearance Pleural WBC Pleural RBC Pleural Neutrophils Pleural Lymphocytes Pleural Monocytes Pleural Eosinophils Hepatitis A IgM Ab Hep Bs Antigen Hep B Core IgM Ab Hepatitis C Antibody Active Medications Generic Name Dose Route Start Last Admin Trade Name Freq PRN Reason Stop Dose Admin Acetaminophen 650 mg 01/25/18 20:21 01/26/18 01:58 Tylenol - PO 650 mg Q6H PRN Administration FEVER Albuterol/Ipratropium 1 amp 01/26/18 08:00 01/26/18 15:48 Duoneb - NEB 1 amp RTID CLEMENTINE Administration Amlodipine Besylate 5 mg 01/26/18 10:00 01/26/18 09:29 Norvasc - PO 5 mg DAILY CLE[facility]INE Administration Atorvastatin Calcium 20 mg 01/25/18 22:00 01/25/18 22:22 Lipitor - PO 20 mg HS CLE[facility]INE Administration Budesonide/Formoterol Fumarate 2 puff 01/25/18 22:00 01/26/18 09:30 Symbicort 80/4.5mcg - IH 2 puff BID CLEMENTINE Administration Folic Acid 1 mg 01/26/18 10:00 01/26/18 12:29 Folic Acid - PO 1 mg DAILY [facility]INE Administration Guaifenesin 1,200 mg 01/25/18 22:00 01/26/18 09:29 Mucinex - PO 1,200 mg BID CLEMENTINE Administration Piperacillin Sod/Tazobactam 100 mls @ 200 mls/hr 01/26/18 02:00 01/26/18 12: 29 Sod 4.5 gm/ Sodium Chloride IVPB 200 mls/hr Q8H-IV [facility]INE Administration Protocol Sodium Chloride 1,000 mls @ 125 mls/hr 01/25/18 20:21 01/26/18 06:30 Normal Saline - IV 125 mls/hr ASDIR CLEMENTINE Administration Insulin Aspart 1 vial 01/25/18 22:00 01/26/18 12:28 Novolog Vial Sliding Scale - SQ 2 units ACHS [facility]INE Administration Protocol Insulin Detemir 15 units 01/26/18 08:00 01/26/18 09:00 Levemir Vial SQ Not Given DAILY@0800 [facility] Ramipril 5 mg 01/26/18 10:00 01/26/18 09:29 Altace - PO 5 mg DAILY CLE[facility]INE Administration Ranitidine HCl 150 mg 01/25/18 22:00 01/26/18 12:29 Zantac - PO 150 mg BID CLEMENTINE Administration ASSESSMENT/PLAN: Patient is a 57 year old male with a significant past medical history of hypertension, diabetes, chronic right middle lobe collapse, and asthma. He presents to the ED on 01/17/2018 with c/o of fever, non-productive cough with right-sided pleuritic chest pain. He is being admitted for severe sepsis secondary to community acquired pneumonia. Imaging: CT chest: opacification with associated expansion of right mid lobe c/w infiltrate with several small internal bronchograms; moderate left pleural effusion; trace left pleural effusion; several enlarged mediastinal lymph nodes. Chest ultrasound: limited ultrasound of the right chest reveal the presence of a right pleural effusion and a density which could represent a mass or atelectasis. bronchoscopy may be helpful for further evaluation. ID/Pulm: Severe sepsis/CAP/bronchial asthma Chronic right middle lobe collapse WBC elevated with fever (102.6) and tachycardia. On Zosyn 4.5mg q8, duonebs and supplemental oxygen Transferred from [facility] on 01/25 for right pigtail catheter placement CXR shows mass like opacity, right pleural effusion Iyer-cultured, blood culture pending Lactic acid wnl Quant gold negative Monitor chest tube output Pulm following ID following GI: Transaminitis, resolved Electrolyte imbalance Hyponatremia, now resolved. daily cmp Endocrine: Diabetes/hyperglycemia Novolog SS, monitor BGMs. Card: Hypertension, controlled. continue amlodopoine Hyperlipidemia, chronic On Lipitor fen monitor electrolyte NS @ 75 cc/hr diabetic diet prophy scds Visit type - Emergency Visit Emergency Visit: Yes ED Registration Date: 01/17/18 Care time: The patient presented to the Emergency Department on the above date and was hospitalized for further evaluation of their emergent condition. - New Patient This patient is new to me today: Yes Date on this admission: 01/26/18 - Critical Care Critical Care patient: No - Discharge Referral Referred to [facility] Med P.C.: No
[2018-01-26] MEDS ORDERED: SODIUM CHLORIDE 200 ML IVPB ONE (17:24)
[2018-01-26] MEDS ORDERED: INSULIN (NOVOLOG) ASPART 100 UNITS/ML 10ML VIAL ONE (21:22)
[2018-01-26] MEDS: ATORVASTATIN CA 20 MG TABLET (FP) PO SCH (22:04)
[2018-01-27] MEDS ORDERED: SODIUM CHLORIDE 100 ML IVPB ONE ×3 (01:29→16:58)
[2018-01-27] MEDS ORDERED: PIPERACILLIN/TAZOBACTAM 4.5 GM VIAL IVPB ONE ×3 (01:29→16:57)
[2018-01-27] MEDS: PIPERACILLIN/TAZOB 4.5 GM 4.5 GM in SODIUM CHLORIDE 100 ML IVPB SCH ×3 (01:34→17:33)
[2018-01-27] MEDS: INSULIN SLIDING SCALE (NOVOLOG) 1 VIAL SQ SCH ×4 (06:44→21:21)
[2018-01-27] MEDS: ALBUTEROL SO4 2.5/IPRATROPIUM 0.5 INH SOL 3 ML VIAL.NEB. NEB SCH ×3 (07:41→20:40)
[2018-01-27] MEDS ORDERED: INSULIN (LEVEMIR) 100 UNITS/ML UNITS SQ SCH (08:36)
[2018-01-27 09:15] LABS: BASO % 0.5 % (0-2.0); EOS % 0.8 % (0-4.5); HEMATOCRIT 31.6 % (35.4-49); LYMPH % 10.1 % (8-40); MCH 20.4 pg (25.7-33.7); MCHC 31.8 g/dl (32.0-35.9); MEAN CELL VOLUME 64.2 fl (80-96); MEAN PLT VOLUME 7.3 fl (7.5-11.1); MONO % 11.3 % (3.8-10.2); NEUT % 77.3 % (42.8-82.8); PLATELET COUNT 530 K/MM3 (134-434); RBC 4.93 M/mm3 (4.00-5.60); RDW 17.9 % (11.9-15.9); WHITE BLOOD COUNT 14.6 K/mm3 (4.0-10.0)
[2018-01-27] MEDS: INSULIN (LEVEMIR) 100 UNITS/ML UNITS SQ SCH ×2 (09:22→09:23)
[2018-01-27] MEDS ORDERED: PT OWN MED DRAWER 7, Y5N ONE ×2 (09:29→21:06)
[2018-01-27 09:47] LABS: ALBUMIN 2.4 g/dl (3.4-5.0); ALK PHOS 121 U/L (45-117); ANION GAP 12 MMOL/L (8-16); BILIRUBIN,TOTAL 0.5 mg/dL (0.2-1); BLOOD UREA NITROGEN 11 mg/dL (7-18); CALCIUM 7.6 mg/dL (8.5-10.1); CHLORIDE 103 mmol/L (98-107); CO2 20 mmol/L (21-32); GLUCOSE,RANDOM 146 mg/dL (74-106); MAGNESIUM 2.3 mg/dL (1.8-2.4); POTASSIUM 3.7 mmol/L (3.5-5.1); SGOT/AST 14 U/L (15-37); SGPT/ALT 25 U/L (13-61); SODIUM 135 mmol/L (136-145); TOT PROT 7.1 g/dl (6.4-8.2)
[2018-01-27] MEDS: BUDESONIDE/FORMETEROL FUMARATE 80/4.5 mcg INHALER IH SCH ×2 (09:53→21:20)
[2018-01-27] MEDS: amLODIPine BESYLATE 5 MG TABLET (FP) PO SCH (09:54)
[2018-01-27] MEDS: RAMIPRIL 5 MG CAPSULE (FP) PO SCH (09:54)
[2018-01-27] MEDS: guaiFENesin 600 MG TABLET.ER (FP) PO SCH ×2 (09:54→21:20)
[2018-01-27] MEDS: RANITIDINE HCL 150 MG TABLET (FP) PO SCH ×2 (09:54→21:21)
[2018-01-27] MEDS: FOLIC ACID 1 MG TABLET (FP) PO SCH (09:54)
[2018-01-27] MEDS: SODIUM CHLORIDE 1,000 ML IV SCH ×2 (11:32→17:34)
--- NOTE | 2018-01-27 14:22 | PN ---
Progress Note, Physician History of Present Illness: pulmonary alert,no distress,-sob - Current Medication List Current Medications: Active Medications Acetaminophen (Tylenol -) 650 mg PO Q6H PRN PRN Reason: FEVER Last Admin: 01/26/18 17:38 Dose: 650 mg Albuterol/Ipratropium (Duoneb -) 1 amp NEB RTID [facility] Last Admin: 01/27/18 13:26 Dose: 1 amp Amlodipine Besylate (Norvasc -) 5 mg PO DAILY [facility] Last Admin: 01/27/18 09:54 Dose: 5 mg Atorvastatin Calcium (Lipitor -) 20 mg PO HS [facility] Last Admin: 01/26/18 22:04 Dose: 20 mg Budesonide/Formoterol Fumarate (Symbicort 80/4.5mcg -) 2 puff IH BID [facility] Last Admin: 01/27/18 09:53 Dose: 2 puff Folic Acid (Folic Acid -) 1 mg PO DAILY [facility] Last Admin: 01/27/18 09:54 Dose: 1 mg Guaifenesin (Mucinex -) 1,200 mg PO BID [facility] Last Admin: 01/27/18 09:54 Dose: 1,200 mg Piperacillin Sod/Tazobactam (Sod 4.5 gm/ Sodium Chloride) 100 mls @ 200 mls/hr IVPB Q8H-IV [facility]; Protocol Last Admin: 01/27/18 09:54 Dose: 200 mls/hr Sodium Chloride (Normal Saline -) 1,000 mls @ 75 mls/hr IV ASDIR [facility] Last Admin: 01/27/18 11:32 Dose: 75 mls/hr Insulin Aspart (Novolog Vial Sliding Scale -) 1 vial SQ ACHS [facility]; Protocol Last Admin: 01/27/18 12:08 Dose: 2 units Insulin Detemir (Levemir Vial) 5 units SQ DAILY@0800 [facility] Last Admin: 01/27/18 09:22 Dose: 5 units Ramipril (Altace -) 5 mg PO DAILY [facility] Last Admin: 01/27/18 09:54 Dose: 5 mg Ranitidine HCl (Zantac -) 150 mg PO BID [facility] Last Admin: 01/27/18 09:54 Dose: 150 mg - Objective Vital Signs: Vital Signs Temperature 99.2 F 01/27/18 13:57 Pulse Rate 102 H 01/27/18 13:57 Respiratory Rate 20 11/14/18 13:57 Blood Pressure 122/68 01/27/18 13:57 O2 Sat by Pulse Oximetry (%) 95 01/27/18 09:00 Constitutional: Yes: Well Nourished, Calm Eyes: Yes: WNL HENT: Yes: WNL Neck: Yes: WNL Cardiovascular: Yes: Regular Rate and Rhythm, S1, S2 Respiratory: Yes: Diminished Gastrointestinal: Yes: Normal Bowel Sounds, Soft Extremities: Yes: WNL Edema: No Labs: CBC, BMP 01/27/18 08:55 01/27/18 08:55 INR, PTT INR 1.40 (0.82-1.09) H 01/24/18 08:00 Assessment/Plan Problem List - Problems (1) Diabetes Code(s): E11.9 - TYPE 2 DIABETES MELLITUS WITHOUT COMPLICATIONS (2) Community acquired bacterial pneumonia Code(s): J15.9 - UNSPECIFIED BACTERIAL PNEUMONIA (3) Sepsis due to pneumonia Code(s): J18.9 - PNEUMONIA, UNSPECIFIED ORGANISM; A41.9 - SEPSIS, UNSPECIFIED ORGANISM (4) Anemia Code(s): D64.9 - ANEMIA, UNSPECIFIED (5) Lactic acid blood increased Code(s): R79.89 - OTHER SPECIFIED ABNORMAL FINDINGS OF BLOOD CHEMISTRY (6) Hypoalbuminemia Code(s): E88.09 - OTH DISORDERS OF PLASMA-PROTEIN METABOLISM, NEC (7) Hypomagnesemia Code(s): E83.42 - HYPOMAGNESEMIA (8) Hypocalcemia Code(s): E83.51 - HYPOCALCEMIA Assessment/Plan PNEUMONIA OBESITY ASTHMA LIKELY SLEEP APNEA PLAN ABX O2 NEEDED INHALED BRONCHODILATORS SLEEP STUDIES OUTPATIENT PLEURAL FLUID CHEMISTRIES PENDING F/U CHEST X-RAY DR DE JESUS
--- NOTE | 2018-01-27 16:52 | PN ---
Physical Exam: SUBJECTIVE: Patient seen and examined at the bedside. feels well, denies shortness of breath. OBJECTIVE: Vital Signs Period Temp Pulse Resp BP Sys/Baum Pulse Ox Last 24 Hr 98.7 F-102.7 F 100-109 20-20 122-128/64-71 95-97 GENERAL: The patient is awake, alert, and fully oriented, in no acute distress. HEAD: Normal with no signs of trauma. EYES: PERRL, extraocular movements intact, sclera anicteric, conjunctiva clear. No ptosis. ENT: Ears normal, nares patent, oropharynx clear without exudates, moist mucous membranes. NECK: Trachea midline, full range of motion, supple. LUNGS: right lung s/p pig tail placement, diminished breath sounds on right lung , left lung clear. HEART: Regular rate and rhythm ABDOMEN: Soft, nontender, nondistended, normoactive bowel sounds, no guarding, no rebound, no hepatosplenomegaly, no masses. EXTREMITIES: no edema. NEUROLOGICAL: Normal speech, gait not observed. PSYCH: Normal mood, normal affect. Laboratory Results - last 24 hr 01/26/18 01/26/18 01/27/18 17:31 22:06 06:18 WBC RBC Hgb Hct MCV MCH MCHC RDW Plt Count MPV Absolute Neuts (auto) Neutrophils % Lymphocytes % Monocytes % Eosinophils % Basophils % Nucleated RBC % Sodium Potassium Chloride Carbon Dioxide Anion Gap BUN Creatinine Creat Clearance w eGFR POC Glucometer 153 125 126 Random Glucose Calcium Magnesium Total Bilirubin AST ALT Alkaline Phosphatase Total Protein Albumin 01/27/18 01/27/18 01/27/18 08:55 08:55 11:40 WBC 14.6 H RBC 4.93 Hgb 10.0 L Hct 31.6 L MCV 64.2 L MCH 20.4 L MCHC 31.8 L RDW 17.9 H Plt Count 530 H MPV 7.3 L Absolute Neuts (auto) 11.3 H Neutrophils % 77.3 Lymphocytes % 10.1 Monocytes % 11.3 H Eosinophils % 0.8 Basophils % 0.5 Nucleated RBC % 0 Sodium 135 L Potassium 3.7 Chloride 103 Carbon Dioxide 20 L Anion Gap 12 BUN 11 Creatinine 1.0 Creat Clearance w eGFR > 60 POC Glucometer 193 Random Glucose 146 H Calcium 7.6 L Magnesium 2.3 Total Bilirubin 0.5 AST 14 L ALT 25 Alkaline Phosphatase 121 H Total Protein 7.1 Albumin 2.4 L 01/27/18 16:29 WBC RBC Hgb Hct MCV MCH MCHC RDW Plt Count MPV Absolute Neuts (auto) Neutrophils % Lymphocytes % Monocytes % Eosinophils % Basophils % Nucleated RBC % Sodium Potassium Chloride Carbon Dioxide Anion Gap BUN Creatinine Creat Clearance w eGFR POC Glucometer 201 Random Glucose Calcium Magnesium Total Bilirubin AST ALT Alkaline Phosphatase Total Protein Albumin Active Medications Generic Name Dose Route Start Last Admin Trade Name Freq PRN Reason Stop Dose Admin Acetaminophen 650 mg 01/25/18 20:21 01/26/18 17:38 Tylenol - PO 650 mg Q6H PRN Administration FEVER Albuterol/Ipratropium 1 amp 01/26/18 08:00 01/27/18 13:26 Duoneb - NEB 1 amp RTID CLEMENTINE Administration Amlodipine Besylate 5 mg 01/26/18 10:00 01/27/18 09:54 Norvasc - PO 5 mg DAILY CEL[facility]INE Administration Atorvastatin Calcium 20 mg 01/25/18 22:00 01/26/18 22:04 Lipitor - PO 20 mg HS [facility]INE Administration Budesonide/Formoterol Fumarate 2 puff 01/25/18 22:00 01/27/18 09:53 Symbicort 80/4.5mcg - IH 2 puff BID CLEMENTINE Administration Folic Acid 1 mg 01/26/18 10:00 01/27/18 09:54 Folic Acid - PO 1 mg DAILY [facility]INE Administration Guaifenesin 1,200 mg 01/25/18 22:00 01/27/18 09:54 Mucinex - PO 1,200 mg BID [facility]INE Administration Piperacillin Sod/Tazobactam 100 mls @ 200 mls/hr 01/26/18 02:00 01/27/18 09: 54 Sod 4.5 gm/ Sodium Chloride IVPB 200 mls/hr Q8H-IV [facility]INE Administration Protocol Sodium Chloride 1,000 mls @ 75 mls/hr 01/26/18 16:30 01/27/18 11:32 Normal Saline - IV 75 mls/hr ASDIR CLEMENTINE Administration Insulin Aspart 1 vial 01/25/18 22:00 01/27/18 12:08 Novolog Vial Sliding Scale - SQ 2 units ACHS CLEMENTINE Administration Protocol Insulin Detemir 5 units 01/27/18 09:00 11/14/18 09:22 Levemir Vial SQ 5 units DAILY@0800 CLEMENTINE Administration Ramipril 5 mg 01/26/18 10:00 01/27/18 09:54 Altace - PO 5 mg DAILY [facility]INE Administration Ranitidine HCl 150 mg 01/25/18 22:00 01/27/18 09:54 Zantac - PO 150 mg BID [facility]INE Administration ASSESSMENT/PLAN: Patient is a 57 year old male with a significant past medical history of hypertension, diabetes, chronic right middle lobe collapse, and asthma. He presents to the ED on 01/17/2018 with c/o of fever, non-productive cough with right-sided pleuritic chest pain. He is being admitted for severe sepsis secondary to community acquired pneumonia. Imaging: CT chest: opacification with associated expansion of right mid lobe c/w infiltrate with several small internal bronchograms; moderate left pleural effusion; trace left pleural effusion; several enlarged mediastinal lymph nodes. Chest ultrasound: limited ultrasound of the right chest reveal the presence of a right pleural effusion and a density which could represent a mass or atelectasis. bronchoscopy may be helpful for further evaluation. ID/Pulm: Severe sepsis/CAP/bronchial asthma Chronic right middle lobe collapse WBC elevated with fevers, and tachycardia. On Zosyn, duonebs and supplemental oxygen Transferred from [facility] on 01/25 for right pigtail catheter placement. monitor drain output. CXR shows mass like opacity, right pleural effusion Iyer-cultured, blood culture negative Lactic acid wnl Quant gold negative Monitor chest tube output, currently 85cc, straw colored. Pulm following ID following GI: Transaminitis, resolved Electrolyte imbalance Hyponatremia, now resolved. daily cmp Endocrine: Diabetes/hyperglycemia Novolog SS, monitor BGMs. Card: Hypertension, controlled. continue amlodopoine Hyperlipidemia, chronic On Lipitor fen monitor electrolyte NS @ 75 cc/hr diabetic diet prophy scds Visit type - Emergency Visit Emergency Visit: Yes ED Registration Date: 01/17/18 Care time: The patient presented to the Emergency Department on the above date and was hospitalized for further evaluation of their emergent condition. - New Patient This patient is new to me today: No - Critical Care Critical Care patient: No - Discharge Referral Referred to [facility] Med P.C.: No
[2018-01-27] MEDS ORDERED: INSULIN (NOVOLOG) ASPART 100 UNITS/ML 10ML VIAL ONE (16:57)
--- NOTE | 2018-01-27 18:06 | PATH ---
Cytology Non-Gynecological Report Patient Name: ETHAN CARY [facility]. Rec. #: [id number] /Age/Gender: 1960 (Age: 57) / M Account: [id number] Location: [address] [place] [address]/[facility] Taken: 01/26/2018 Received: 01/26/2018 Reported: 01/27/2018 Physicians: Abraham Cortés ACNP Specimen(s) Received RIGHT PLEURAL FLUID Clinical History Pleural effusion, pneumonia Final Diagnosis PLEURAL FLUID, RIGHT,THORACENTESIS: SATISFACTORY FOR EVALUATION. NO MALIGNANT CELLS IDENTIFIED. ACUTE INFLAMMATORY INFILTRATE COMPRISED OF NUMEROUS NEUTROPHILS AND RARE LYMPHOCYTES. Electronically Signed Zelda Ugalde M.D. Gross Description Approximately 50 cc of yellow fluid received fixed in 50% alcohol. One cytofunnel prepared and Pap stained. One cellblock prepared.
[2018-01-27] MEDS: ATORVASTATIN CA 20 MG TABLET (FP) PO SCH (21:21)
[2018-01-28] MEDS ORDERED: SODIUM CHLORIDE 100 ML IVPB ONE ×3 (01:01→17:37)
[2018-01-28] MEDS ORDERED: PIPERACILLIN/TAZOBACTAM 4.5 GM VIAL IVPB ONE ×3 (01:01→17:37)
[2018-01-28] MEDS: SODIUM CHLORIDE 1,000 ML IV SCH ×2 (01:12→19:16)
[2018-01-28] MEDS: PIPERACILLIN/TAZOB 4.5 GM 4.5 GM in SODIUM CHLORIDE 100 ML IVPB SCH ×3 (01:12→17:46)
[2018-01-28] MEDS: INSULIN SLIDING SCALE (NOVOLOG) 1 VIAL SQ SCH ×4 (06:34→21:50)
[2018-01-28] MEDS: ALBUTEROL SO4 2.5/IPRATROPIUM 0.5 INH SOL 3 ML VIAL.NEB. NEB SCH ×3 (08:08→20:48)
[2018-01-28 09:07] LABS: BASO % 0.3 % (0-2.0); EOS % 0.7 % (0-4.5); HEMATOCRIT 33.4 % (35.4-49); HEMOGLOBIN 10.1 GM/dL (11.7-16.9); LYMPH % 12.7 % (8-40); MCHC 30.2 g/dl (32.0-35.9); MEAN CELL VOLUME 65.4 fl (80-96); MEAN PLT VOLUME 7.2 fl (7.5-11.1); MONO % 11.1 % (3.8-10.2); NEUT % 75.2 % (42.8-82.8); PLATELET COUNT 616 K/MM3 (134-434); RDW 17.9 % (11.9-15.9); WHITE BLOOD COUNT 15.7 K/mm3 (4.0-10.0)
[2018-01-28] MEDS: INSULIN (LEVEMIR) 100 UNITS/ML UNITS SQ SCH (09:20)
[2018-01-28 09:23] LABS: MCH 19.7 pg (25.7-33.7)
[2018-01-28 10:06] LABS: ALBUMIN 2.5 g/dl (3.4-5.0); ALK PHOS 131 U/L (45-117); ANION GAP 13 MMOL/L (8-16); BILIRUBIN,TOTAL 0.6 mg/dL (0.2-1); BLOOD UREA NITROGEN 10 mg/dL (7-18); CALCIUM 8.1 mg/dL (8.5-10.1); CHLORIDE 101 mmol/L (98-107); CO2 21 mmol/L (21-32); CREATININE 1.1 mg/dL (0.55-1.3); GLUCOSE,RANDOM 113 mg/dL (74-106); MAGNESIUM 2.5 mg/dL (1.8-2.4); POTASSIUM 4.1 mmol/L (3.5-5.1); SGOT/AST 18 U/L (15-37); SGPT/ALT 27 U/L (13-61); SODIUM 135 mmol/L (136-145); TOT PROT 7.6 g/dl (6.4-8.2)
[2018-01-28] MEDS: RAMIPRIL 5 MG CAPSULE (FP) PO SCH (10:49)
[2018-01-28] MEDS: FOLIC ACID 1 MG TABLET (FP) PO SCH (10:50)
[2018-01-28] MEDS: guaiFENesin 600 MG TABLET.ER (FP) PO SCH ×2 (10:50→21:47)
[2018-01-28] MEDS: amLODIPine BESYLATE 5 MG TABLET (FP) PO SCH (10:50)
[2018-01-28] MEDS: RANITIDINE HCL 150 MG TABLET (FP) PO SCH ×2 (10:51→21:47)
[2018-01-28] MEDS: BUDESONIDE/FORMETEROL FUMARATE 80/4.5 mcg INHALER IH SCH ×2 (10:51→21:47)
--- NOTE | 2018-01-28 11:34 | PN ---
Physical Exam: SUBJECTIVE: Patient seen and examined. sitting up in bed in no acute distress. feels well. ambulating without dyspnea. OBJECTIVE: less than 100cc of total output recorded on chest tube Vital Signs Period Temp Pulse Resp BP Sys/Baum Pulse Ox Last 24 Hr 98.3 F-101.8 F 100-111 18-20 122-151/61-75 95 GENERAL: The patient is awake, alert, and fully oriented, in no acute distress. HEAD: Normal with no signs of trauma. EYES: PERRL, extraocular movements intact, sclera anicteric, conjunctiva clear. No ptosis. ENT: Ears normal, nares patent, oropharynx clear without exudates, moist mucous membranes. NECK: Trachea midline, full range of motion, supple. LUNGS: right lung s/p pig tail placement, diminished breath sounds on right lung , left lung clear. HEART: Regular rate and rhythm ABDOMEN: Soft, nontender, nondistended, normoactive bowel sounds, no guarding, no rebound, no hepatosplenomegaly, no masses. EXTREMITIES: no edema. NEUROLOGICAL: Normal speech, gait not observed. PSYCH: Normal mood, normal affect. Laboratory Results - last 24 hr 01/27/18 01/27/18 01/27/18 11:40 16:29 21:19 WBC RBC Hgb Hct MCV MCH MCHC RDW Plt Count MPV Absolute Neuts (auto) Neutrophils % Lymphocytes % Monocytes % Eosinophils % Basophils % Nucleated RBC % Sodium Potassium Chloride Carbon Dioxide Anion Gap BUN Creatinine Creat Clearance w eGFR POC Glucometer 193 201 130 Random Glucose Calcium Magnesium Total Bilirubin AST ALT Alkaline Phosphatase Total Protein Albumin 01/28/18 01/28/18 01/28/18 06:25 08:36 08:36 WBC 15.7 H RBC 5.10 Hgb 10.1 L Hct 33.4 L MCV 65.4 L MCH 19.7 L MCHC 30.2 L RDW 17.9 H Plt Count 616 H MPV 7.2 L Absolute Neuts (auto) 11.8 H Neutrophils % 75.2 Lymphocytes % 12.7 D Monocytes % 11.1 H Eosinophils % 0.7 Basophils % 0.3 Nucleated RBC % 0 Sodium 135 L Potassium 4.1 Chloride 101 Carbon Dioxide 21 Anion Gap 13 BUN 10 Creatinine 1.1 Creat Clearance w eGFR > 60 POC Glucometer 121 Random Glucose 113 H Calcium 8.1 L Magnesium 2.5 H Total Bilirubin 0.6 AST 18 ALT 27 Alkaline Phosphatase 131 H Total Protein 7.6 Albumin 2.5 L Active Medications Generic Name Dose Route Start Last Admin Trade Name Jolly PRN Reason Stop Dose Admin Acetaminophen 650 mg 01/25/18 20:21 01/26/18 17:38 Tylenol - PO 650 mg Q6H PRN Administration FEVER Albuterol/Ipratropium 1 amp 01/26/18 08:00 01/28/18 08:08 Duoneb - NEB 1 amp RTID CLEMENTINE Administration Amlodipine Besylate 5 mg 01/26/18 10:00 01/28/18 10:50 Norvasc - PO 5 mg DAILY CLEMENTINE Administration Atorvastatin Calcium 20 mg 01/25/18 22:00 01/27/18 21:21 Lipitor - PO 20 mg HS CLEMENTINE Administration Budesonide/Formoterol Fumarate 2 puff 01/25/18 22:00 01/28/18 10:51 Symbicort 80/4.5mcg - IH 2 puff BID CLEMENTINE Administration Folic Acid 1 mg 01/26/18 10:00 01/28/18 10:50 Folic Acid - PO 1 mg DAILY CLE[facility]INE Administration Guaifenesin 1,200 mg 01/25/18 22:00 01/28/18 10:50 Mucinex - PO 1,200 mg BID CLEMENTINE Administration Piperacillin Sod/Tazobactam 100 mls @ 200 mls/hr 01/26/18 02:00 01/28/18 10: 53 Sod 4.5 gm/ Sodium Chloride IVPB 200 mls/hr Q8H-IV CLE[facility]INE Administration Protocol Sodium Chloride 1,000 mls @ 75 mls/hr 01/26/18 16:30 01/28/18 01:12 Normal Saline - IV 75 mls/hr ASDIR CLEMENTINE Administration Insulin Aspart 1 vial 01/25/18 22:00 01/28/18 06:34 Novolog Vial Sliding Scale - SQ Not Given ACHS [facility] Protocol Insulin Detemir 5 units 01/27/18 09:00 01/28/18 09:20 Levemir Vial SQ 5 units DAILY@0800 CLEMENTINE Administration Ramipril 5 mg 01/26/18 10:00 01/28/18 10:49 Altace - PO 5 mg DAILY CLEMENTINE Administration Ranitidine HCl 150 mg 01/25/18 22:00 01/28/18 10:51 Zantac - PO 150 mg BID CLEMENTINE Administration ASSESSMENT/PLAN: Patient is a 57 year old male with a significant past medical history of hypertension, diabetes, chronic right middle lobe collapse, and asthma. He presents to the ED on 01/17/2018 with c/o of fever, non-productive cough with right-sided pleuritic chest pain. He is being admitted for severe sepsis secondary to community acquired pneumonia. Imaging: CT chest: opacification with associated expansion of right mid lobe c/w infiltrate with several small internal bronchograms; moderate left pleural effusion; trace left pleural effusion; several enlarged mediastinal lymph nodes. Chest ultrasound: limited ultrasound of the right chest reveal the presence of a right pleural effusion and a density which could represent a mass or atelectasis. bronchoscopy may be helpful for further evaluation. ID/Pulm: Severe sepsis/CAP/bronchial asthma. Chronic right middle lobe collapse with pleural drainage on 01/26/18 to chest tube. overall <100 of straw colored. Leukocytosis improving, tmax 101.8, tachycardia. Re-cultured today. On Zosyn, duonebs and supplemental oxygen prn GI: Transaminitis, resolved Electrolyte imbalance Hyponatremia, improved daily cmp Endocrine: Diabetes/hyperglycemia Novolog SS, monitor BGMs. Card: Hypertension, controlled. continue amlodopoine Hyperlipidemia, chronic On Lipitor fen monitor electrolyte NS @ 75 cc/hr diabetic diet prophy scds Visit type - Emergency Visit Emergency Visit: Yes ED Registration Date: 01/17/18 Care time: The patient presented to the Emergency Department on the above date and was hospitalized for further evaluation of their emergent condition. - New Patient This patient is new to me today: No - Critical Care Critical Care patient: No - Discharge Referral Referred to [facility] Med P.C.: No
[2018-01-28] MEDS ORDERED: INSULIN (NOVOLOG) ASPART 100 UNITS/ML 10ML VIAL ONE (11:48)
--- NOTE | 2018-01-28 12:15 | PN ---
Progress Note (short form) - Note Progress Note: Resting in NAD. No acute events overnight. Intake & Output 01/25/18 01/26/18 01/27/18 01/28/18 23:59 23:59 23:59 23:59 Intake Total 2925 3730 2500 965 Output Total 400 25 62 3 Balance 2525 3705 2438 962 Last Vital Signs Temp Pulse Resp BP Pulse Ox 98.6 F 107 H 18 124/71 95 01/28/18 10:00 01/28/18 10:00 01/28/18 10:00 01/28/18 10:00 01/27/18 21:00 Active Medications Acetaminophen (Tylenol -) 650 mg PO Q6H PRN PRN Reason: FEVER Last Admin: 01/26/18 17:38 Dose: 650 mg Albuterol/Ipratropium (Duoneb -) 1 amp NEB RTID [facility] Last Admin: 01/28/18 08:08 Dose: 1 amp Amlodipine Besylate (Norvasc -) 5 mg PO DAILY [facility] Last Admin: 01/28/18 10:50 Dose: 5 mg Atorvastatin Calcium (Lipitor -) 20 mg PO HS [facility] Last Admin: 01/27/18 21:21 Dose: 20 mg Budesonide/Formoterol Fumarate (Symbicort 80/4.5mcg -) 2 puff IH BID [facility] Last Admin: 01/28/18 10:51 Dose: 2 puff Folic Acid (Folic Acid -) 1 mg PO DAILY [facility] Last Admin: 01/28/18 10:50 Dose: 1 mg Guaifenesin (Mucinex -) 1,200 mg PO BID [facility] Last Admin: 01/28/18 10:50 Dose: 1,200 mg Piperacillin Sod/Tazobactam (Sod 4.5 gm/ Sodium Chloride) 100 mls @ 200 mls/hr IVPB Q8H-IV [facility]; Protocol Last Admin: 01/28/18 10:53 Dose: 200 mls/hr Sodium Chloride (Normal Saline -) 1,000 mls @ 75 mls/hr IV ASDIR [facility] Last Admin: 01/28/18 01:12 Dose: 75 mls/hr Insulin Aspart (Novolog Vial Sliding Scale -) 1 vial SQ ACHS [facility]; Protocol Last Admin: 01/28/18 11:53 Dose: 2 units Insulin Detemir (Levemir Vial) 5 units SQ DAILY@0800 [facility] Last Admin: 01/28/18 09:20 Dose: 5 units Ramipril (Altace -) 5 mg PO DAILY [facility] Last Admin: 01/28/18 10:49 Dose: 5 mg Ranitidine HCl (Zantac -) 150 mg PO BID [facility] Last Admin: 01/28/18 10:51 Dose: 150 mg Constitutional: Yes: Well Nourished, Calm Eyes: Yes: WNL HENT: Yes: WNL Neck: Yes: WNL Cardiovascular: Yes: Regular Rate and Rhythm, S1, S2 Respiratory: Yes: Diminished Gastrointestinal: Yes: Normal Bowel Sounds, Soft Extremities: Yes: WNL Edema: No Labs: Laboratory Results - last 24 hr 01/26/18 01/27/18 01/27/18 10:45 16:29 21:19 WBC RBC Hgb Hct MCV MCH MCHC RDW Plt Count MPV Absolute Neuts (auto) Neutrophils % Lymphocytes % Monocytes % Eosinophils % Basophils % Nucleated RBC % Sodium Potassium Chloride Carbon Dioxide Anion Gap BUN Creatinine Creat Clearance w eGFR POC Glucometer 201 130 Random Glucose Calcium Magnesium Total Bilirubin AST ALT Alkaline Phosphatase Total Protein Albumin Pleural Fluid Source Pleural fluid Pleural Color Yellow Pleural Appearance Clear Pleural WBC 395 Pleural RBC 3976 Pleural Neutrophils 77 Pleural Lymphocytes 10 Pleural Monocytes 12 Pleural Eosinophils 1 01/28/18 01/28/18 01/28/18 06:25 08:36 08:36 WBC 15.7 H RBC 5.10 Hgb 10.1 L Hct 33.4 L MCV 65.4 L MCH 19.7 L MCHC 30.2 L RDW 17.9 H Plt Count 616 H MPV 7.2 L Absolute Neuts (auto) 11.8 H Neutrophils % 75.2 Lymphocytes % 12.7 D Monocytes % 11.1 H Eosinophils % 0.7 Basophils % 0.3 Nucleated RBC % 0 Sodium 135 L Potassium 4.1 Chloride 101 Carbon Dioxide 21 Anion Gap 13 BUN 10 Creatinine 1.1 Creat Clearance w eGFR > 60 POC Glucometer 121 Random Glucose 113 H Calcium 8.1 L Magnesium 2.5 H Total Bilirubin 0.6 AST 18 ALT 27 Alkaline Phosphatase 131 H Total Protein 7.6 Albumin 2.5 L Pleural Fluid Source Pleural Color Pleural Appearance Pleural WBC Pleural RBC Pleural Neutrophils Pleural Lymphocytes Pleural Monocytes Pleural Eosinophils 01/28/18 11:44 WBC RBC Hgb Hct MCV MCH MCHC RDW Plt Count MPV Absolute Neuts (auto) Neutrophils % Lymphocytes % Monocytes % Eosinophils % Basophils % Nucleated RBC % Sodium Potassium Chloride Carbon Dioxide Anion Gap BUN Creatinine Creat Clearance w eGFR POC Glucometer 173 Random Glucose Calcium Magnesium Total Bilirubin AST ALT Alkaline Phosphatase Total Protein Albumin Pleural Fluid Source Pleural Color Pleural Appearance Pleural WBC Pleural RBC Pleural Neutrophils Pleural Lymphocytes Pleural Monocytes Pleural Eosinophils Assessment/Plan Problem List - Problems (1) Diabetes Code(s): E11.9 - TYPE 2 DIABETES MELLITUS WITHOUT COMPLICATIONS (2) Community acquired bacterial pneumonia Code(s): J15.9 - UNSPECIFIED BACTERIAL PNEUMONIA (3) Sepsis due to pneumonia Code(s): J18.9 - PNEUMONIA, UNSPECIFIED ORGANISM; A41.9 - SEPSIS, UNSPECIFIED ORGANISM (4) Anemia Code(s): D64.9 - ANEMIA, UNSPECIFIED (5) Lactic acid blood increased Code(s): R79.89 - OTHER SPECIFIED ABNORMAL FINDINGS OF BLOOD CHEMISTRY (6) Hypoalbuminemia Code(s): E88.09 - OTH DISORDERS OF PLASMA-PROTEIN METABOLISM, NEC (7) Hypomagnesemia Code(s): E83.42 - HYPOMAGNESEMIA (8) Hypocalcemia Code(s): E83.51 - HYPOCALCEMIA Assessment/Plan PNEUMONIA OBESITY ASTHMA LIKELY SLEEP APNEA PLAN ABX O2 NEEDED INHALED BRONCHODILATORS SLEEP STUDIES OUTPATIENT PLEURAL FLUID CHEMISTRIES PENDING Dr Herrera
[2018-01-28] MEDS: ACETAMINOPHEN 325 MG TABLET (FP) PO PRN (18:03)
[2018-01-28] MEDS: ATORVASTATIN CA 20 MG TABLET (FP) PO SCH (21:47)
[2018-01-29] MEDS ORDERED: PIPERACILLIN/TAZOBACTAM 4.5 GM VIAL IVPB ONE ×3 (00:55→17:23)
[2018-01-29] MEDS ORDERED: SODIUM CHLORIDE 100 ML IVPB ONE ×3 (00:56→17:23)
[2018-01-29] MEDS: PIPERACILLIN/TAZOB 4.5 GM 4.5 GM in SODIUM CHLORIDE 100 ML IVPB SCH ×3 (02:03→17:40)
[2018-01-29] MEDS: INSULIN SLIDING SCALE (NOVOLOG) 1 VIAL SQ SCH ×4 (06:39→21:57)
[2018-01-29] MEDS: SODIUM CHLORIDE 1,000 ML IV SCH (06:39)
[2018-01-29] MEDS: ALBUTEROL SO4 2.5/IPRATROPIUM 0.5 INH SOL 3 ML VIAL.NEB. NEB SCH ×3 (07:25→20:32)
[2018-01-29] MEDS: INSULIN (LEVEMIR) 100 UNITS/ML UNITS SQ SCH (08:59)
[2018-01-29] MEDS ORDERED: PT OWN MED DRAWER 7, Y5N ONE ×4 (10:02→19:08)
[2018-01-29] MEDS: RAMIPRIL 5 MG CAPSULE (FP) PO SCH (10:13)
[2018-01-29] MEDS: FOLIC ACID 1 MG TABLET (FP) PO SCH (10:13)
[2018-01-29] MEDS: amLODIPine BESYLATE 5 MG TABLET (FP) PO SCH (10:13)
[2018-01-29] MEDS: guaiFENesin 600 MG TABLET.ER (FP) PO SCH ×2 (10:13→21:50)
[2018-01-29] MEDS: RANITIDINE HCL 150 MG TABLET (FP) PO SCH ×2 (10:14→21:50)
[2018-01-29] MEDS: BUDESONIDE/FORMETEROL FUMARATE 80/4.5 mcg INHALER IH SCH ×2 (10:14→21:51)
--- NOTE | 2018-01-29 15:21 | PN ---
Progress Note, Physician History of Present Illness: pulmonary no distress,-sob,min chest tube drainage. - Current Medication List Current Medications: Active Medications Acetaminophen (Tylenol -) 650 mg PO Q6H PRN PRN Reason: FEVER Last Admin: 01/28/18 18:03 Dose: 650 mg Albuterol/Ipratropium (Duoneb -) 1 amp NEB RTID [facility] Last Admin: 01/29/18 07:25 Dose: 1 amp Amlodipine Besylate (Norvasc -) 5 mg PO DAILY [facility] Last Admin: 01/29/18 10:13 Dose: 5 mg Atorvastatin Calcium (Lipitor -) 20 mg PO HS [facility] Last Admin: 01/28/18 21:47 Dose: 20 mg Budesonide/Formoterol Fumarate (Symbicort 80/4.5mcg -) 2 puff IH BID [facility] Last Admin: 01/29/18 10:14 Dose: 2 puff Folic Acid (Folic Acid -) 1 mg PO DAILY [facility] Last Admin: 01/29/18 10:13 Dose: 1 mg Guaifenesin (Mucinex -) 1,200 mg PO BID [facility] Last Admin: 01/29/18 10:13 Dose: 1,200 mg Piperacillin Sod/Tazobactam (Sod 4.5 gm/ Sodium Chloride) 100 mls @ 200 mls/hr IVPB Q8H-IV [facility]; Protocol Last Admin: 01/29/18 10:12 Dose: 200 mls/hr Sodium Chloride (Normal Saline -) 1,000 mls @ 75 mls/hr IV ASDIR [facility] Last Admin: 01/29/18 06:39 Dose: 75 mls/hr Insulin Aspart (Novolog Vial Sliding Scale -) 1 vial SQ ACHS [facility]; Protocol Last Admin: 01/29/18 11:47 Dose: 2 units Insulin Detemir (Levemir Vial) 5 units SQ DAILY@0800 [facility] Last Admin: 01/29/18 08:59 Dose: 5 units Ramipril (Altace -) 5 mg PO DAILY [facility] Last Admin: 01/29/18 10:13 Dose: 5 mg Ranitidine HCl (Zantac -) 150 mg PO BID [facility] Last Admin: 01/29/18 10:14 Dose: 150 mg - Objective Vital Signs: Vital Signs Temperature 99.2 F 01/29/18 14:10 Pulse Rate 101 H 01/29/18 14:10 Respiratory Rate 20 01/29/18 14:10 Blood Pressure 126/47 L 01/29/18 14:10 O2 Sat by Pulse Oximetry (%) 95 01/28/18 21:00 Constitutional: Yes: Well Nourished, Calm Eyes: Yes: WNL HENT: Yes: WNL Neck: Yes: WNL Cardiovascular: Yes: Regular Rate and Rhythm, S1, S2 Respiratory: Yes: Diminished Gastrointestinal: Yes: Normal Bowel Sounds, Soft Extremities: Yes: WNL Edema: No Labs: pleural fluid amylase 42 glucose 35 TP 5.2 PH 7.2 Assessment/Plan Problem List - Problems (1) Diabetes Code(s): E11.9 - TYPE 2 DIABETES MELLITUS WITHOUT COMPLICATIONS (2) Community acquired bacterial pneumonia Code(s): J15.9 - UNSPECIFIED BACTERIAL PNEUMONIA (3) Sepsis due to pneumonia Code(s): J18.9 - PNEUMONIA, UNSPECIFIED ORGANISM; A41.9 - SEPSIS, UNSPECIFIED ORGANISM (4) Anemia Code(s): D64.9 - ANEMIA, UNSPECIFIED (5) Lactic acid blood increased Code(s): R79.89 - OTHER SPECIFIED ABNORMAL FINDINGS OF BLOOD CHEMISTRY (6) Hypoalbuminemia Code(s): E88.09 - OTH DISORDERS OF PLASMA-PROTEIN METABOLISM, NEC (7) Hypomagnesemia Code(s): E83.42 - HYPOMAGNESEMIA (8) Hypocalcemia Code(s): E83.51 - HYPOCALCEMIA Assessment/Plan PNEUMONIA PLEURAL EFFUSION ? MALIGNANT,?INFECTIOUS OBESITY ASTHMA LIKELY SLEEP APNEA PLAN ABX O2 NEEDED INHALED BRONCHODILATORS SLEEP STUDIES OUTPATIENT THORACIC SURGERY EVALUATION FOR POSSIBLE VAT F/U CHEST X-RAY DR DE JESUS
--- NOTE | 2018-01-29 15:28 | PN ---
Physical Exam: SUBJECTIVE: Patient seen and examined at the bedside. denies chest pain or shortness of breath. OBJECTIVE: Vital Signs Period Temp Pulse Resp BP Sys/Baum Pulse Ox Last 24 Hr 99 F-101.0 F 79-106 18-20 109-130/47-69 95 GENERAL: The patient is awake, alert, and fully oriented, in no acute distress. HEAD: Normal with no signs of trauma. EYES: PERRL, extraocular movements intact, sclera anicteric, conjunctiva clear. No ptosis. ENT: Ears normal, nares patent, oropharynx clear without exudates, moist mucous membranes. NECK: Trachea midline, full range of motion, supple. LUNGS: right lung s/p pig tail placement, diminished breath sounds on right lung , left lung clear. HEART: Regular rate and rhythm ABDOMEN: Soft, nontender, nondistended, normoactive bowel sounds, no guarding, no rebound, no hepatosplenomegaly, no masses. EXTREMITIES: no edema. NEUROLOGICAL: Normal speech, gait not observed. PSYCH: Normal mood, normal affect. Laboratory Results - last 24 hr 01/28/18 01/28/18 01/29/18 17:20 21:50 06:11 POC Glucometer 151 131 109 01/29/18 11:45 POC Glucometer 153 Active Medications Generic Name Dose Route Start Last Admin Trade Name Freq PRN Reason Stop Dose Admin Acetaminophen 650 mg 01/25/18 20:21 01/28/18 18:03 Tylenol - PO 650 mg Q6H PRN Administration FEVER Albuterol/Ipratropium 1 amp 01/26/18 08:00 01/29/18 07:25 Duoneb - NEB 1 amp RTID [facility] Administration Amlodipine Besylate 5 mg 01/26/18 10:00 01/29/18 10:13 Norvasc - PO 5 mg DAILY [facility] Administration Atorvastatin Calcium 20 mg 01/25/18 22:00 01/28/18 21:47 Lipitor - PO 20 mg HS [facility] Administration Budesonide/Formoterol Fumarate 2 puff 01/25/18 22:00 01/29/18 10:14 Symbicort 80/4.5mcg - IH 2 puff BID [facility] Administration Folic Acid 1 mg 01/26/18 10:00 01/29/18 10:13 Folic Acid - PO 1 mg DAILY [facility] Administration Guaifenesin 1,200 mg 01/25/18 22:00 01/29/18 10:13 Mucinex - PO 1,200 mg BID [facility] Administration Piperacillin Sod/Tazobactam 100 mls @ 200 mls/hr 01/26/18 02:00 01/29/18 10: 12 Sod 4.5 gm/ Sodium Chloride IVPB 200 mls/hr Q8H-IV [facility] Administration Protocol Sodium Chloride 1,000 mls @ 75 mls/hr 01/26/18 16:30 01/29/18 06:39 Normal Saline - IV 75 mls/hr ASDIR [facility] Administration Insulin Aspart 1 vial 01/25/18 22:00 01/29/18 11:47 Novolog Vial Sliding Scale - SQ 2 units ACHS [facility] Administration Protocol Insulin Detemir 5 units 01/27/18 09:00 01/29/18 08:59 Levemir Vial SQ 5 units DAILY@0800 [facility] Administration Ramipril 5 mg 01/26/18 10:00 01/29/18 10:13 Altace - PO 5 mg DAILY [facility] Administration Ranitidine HCl 150 mg 01/25/18 22:00 01/29/18 10:14 Zantac - PO 150 mg BID [facility] Administration ASSESSMENT/PLAN: Patient is a 57 year old male with a significant past medical history of hypertension, diabetes, chronic right middle lobe collapse, and asthma. He presents to the ED on 01/17/2018 with c/o of fever, non-productive cough with right-sided pleuritic chest pain. He is being admitted for severe sepsis secondary to community acquired pneumonia. Imaging: CT chest: opacification with associated expansion of right mid lobe c/w infiltrate with several small internal bronchograms; moderate left pleural effusion; trace left pleural effusion; several enlarged mediastinal lymph nodes. Chest ultrasound: limited ultrasound of the right chest reveal the presence of a right pleural effusion and a density which could represent a mass or atelectasis. bronchoscopy may be helpful for further evaluation. ID/Pulm: Severe sepsis/CAP/bronchial asthma. Chronic right middle lobe collapse with pleural drainage on 01/26/18 to chest tube. overall <100 of straw colored drain output. Leukocytosis improving, still with fevers, tachycardia. repeat blood cultures negative to date. On Zosyn, duonebs and supplemental oxygen prn. ID following Pulmonary following. GI: Transaminitis, resolved Electrolyte imbalance Hyponatremia, improved daily cmp Endocrine: Diabetes/hyperglycemia Novolog SS, monitor BGMs. Card: Hypertension, controlled. continue amlodopoine Hyperlipidemia, chronic On Lipitor fen monitor electrolyte diabetic diet prophy scds Visit type - Emergency Visit Emergency Visit: Yes ED Registration Date: 01/17/18 Care time: The patient presented to the Emergency Department on the above date and was hospitalized for further evaluation of their emergent condition. - New Patient This patient is new to me today: No - Critical Care Critical Care patient: No - Discharge Referral Referred to [facility] Med [facility] No
--- NOTE | 2018-01-29 16:40 | PN ---
Progress Note, Physician History of Present Illness: Awake, alert Seated in bed No complaints Denies chest pain/ dyspnea/ cough No c/o fever/ chills S/P thoracentesis/ chest tube Pleural fluid c/s pending Fluid chemistries c/w exudate - Current Medication List Current Medications: Active Medications Acetaminophen (Tylenol -) 650 mg PO Q6H PRN PRN Reason: FEVER Last Admin: 01/28/18 18:03 Dose: 650 mg Albuterol/Ipratropium (Duoneb -) 1 amp NEB RTID [facility] Last Admin: 01/29/18 15:35 Dose: 1 amp Amlodipine Besylate (Norvasc -) 5 mg PO DAILY [facility] Last Admin: 01/29/18 10:13 Dose: 5 mg Atorvastatin Calcium (Lipitor -) 20 mg PO HS [facility] Last Admin: 01/28/18 21:47 Dose: 20 mg Budesonide/Formoterol Fumarate (Symbicort 80/4.5mcg -) 2 puff IH BID [facility] Last Admin: 01/29/18 10:14 Dose: 2 puff Folic Acid (Folic Acid -) 1 mg PO DAILY [facility] Last Admin: 01/29/18 10:13 Dose: 1 mg Guaifenesin (Mucinex -) 1,200 mg PO BID [facility] Last Admin: 01/29/18 10:13 Dose: 1,200 mg Piperacillin Sod/Tazobactam (Sod 4.5 gm/ Sodium Chloride) 100 mls @ 200 mls/hr IVPB Q8H-IV [facility]; Protocol Last Admin: 01/29/18 10:12 Dose: 200 mls/hr Sodium Chloride (Normal Saline -) 1,000 mls @ 75 mls/hr IV ASDIR [facility] Last Admin: 01/29/18 06:39 Dose: 75 mls/hr Insulin Aspart (Novolog Vial Sliding Scale -) 1 vial SQ ACHS [facility]; Protocol Last Admin: 01/29/18 11:47 Dose: 2 units Insulin Detemir (Levemir Vial) 5 units SQ DAILY@0800 [facility] Last Admin: 01/29/18 08:59 Dose: 5 units Ramipril (Altace -) 5 mg PO DAILY [facility] Last Admin: 01/29/18 10:13 Dose: 5 mg Ranitidine HCl (Zantac -) 150 mg PO BID [facility] Last Admin: 01/29/18 10:14 Dose: 150 mg - Objective Vital Signs: Vital Signs Temperature 99.2 F 01/29/18 14:10 Pulse Rate 101 H 01/29/18 14:10 Respiratory Rate 20 01/29/18 14:10 Blood Pressure 126/47 L 01/29/18 14:10 O2 Sat by Pulse Oximetry (%) 95 01/29/18 09:00 Constitutional: Yes: No Distress Eyes: Yes: Conjunctiva Clear Cardiovascular: Yes: Regular Rate and Rhythm, S1, S2 Respiratory: Yes: Diminished, Other (decreased BS R base. R chest tube in place) Gastrointestinal: Yes: Normal Bowel Sounds, Soft. No: Tenderness Labs: CBC, BMP 01/28/18 08:36 01/28/18 08:36 INR, PTT INR 1.40 (0.82-1.09) H 01/24/18 08:00 Assessment/Plan RML consolidation/ atelectatic lung ? post obstructive Exudative parapneumonic effusion R/O empyema Leukocytosis Case discussed with Dr Lopez He is to arrange bronchoscopy v. VATS Continue empiric zosyn
[2018-01-29] MEDS: ACETAMINOPHEN 325 MG TABLET (FP) PO PRN (17:38)
[2018-01-29] MEDS ORDERED: LORATADINE 10 MG TABLET PO ONE (17:41)
[2018-01-29] MEDS ORDERED: guaiFENesin 200 MG/10 ML 10 ML UNIT-DOSE CUPS PO PRN (17:42)
[2018-01-29] MEDS ORDERED: INSULIN (LEVEMIR) 100 UNITS/ML UNITS SQ ONE (19:07)
[2018-01-29] MEDS: ATORVASTATIN CA 20 MG TABLET (FP) PO SCH (21:50)
[2018-01-30] MEDS ORDERED: PIPERACILLIN/TAZOBACTAM 4.5 GM VIAL IVPB ONE ×3 (00:40→17:07)
[2018-01-30] MEDS ORDERED: SODIUM CHLORIDE 100 ML IVPB ONE ×3 (00:40→17:07)
[2018-01-30] MEDS: PIPERACILLIN/TAZOB 4.5 GM 4.5 GM in SODIUM CHLORIDE 100 ML IVPB SCH ×3 (02:08→17:11)
[2018-01-30] MEDS: INSULIN SLIDING SCALE (NOVOLOG) 1 VIAL SQ SCH ×4 (07:00→21:18)
[2018-01-30] MEDS: ALBUTEROL SO4 2.5/IPRATROPIUM 0.5 INH SOL 3 ML VIAL.NEB. NEB SCH ×3 (07:49→20:57)
[2018-01-30] MEDS ORDERED: PT OWN MED DRAWER 7, Y5N ONE (08:48)
[2018-01-30] MEDS: INSULIN (LEVEMIR) 100 UNITS/ML UNITS SQ SCH (08:51)
[2018-01-30 08:57] LABS: BASO % 0.5 % (0-2.0); EOS % 1.3 % (0-4.5); HEMATOCRIT 31.9 % (35.4-49); HEMOGLOBIN 9.8 GM/dL (11.7-16.9); LYMPH % 10.4 % (8-40); MCHC 30.7 g/dl (32.0-35.9); MEAN CELL VOLUME 64.8 fl (80-96); MEAN PLT VOLUME 7.1 fl (7.5-11.1); MONO % 7.5 % (3.8-10.2); NEUT % 80.3 % (42.8-82.8); PLATELET COUNT 644 K/MM3 (134-434); RBC 4.92 M/mm3 (4.00-5.60); RDW 17.8 % (11.9-15.9); WHITE BLOOD COUNT 13.1 K/mm3 (4.0-10.0)
[2018-01-30 09:01] LABS: MCH 19.9 pg (25.7-33.7)
[2018-01-30 10:41] LABS: ALBUMIN 2.4 g/dl (3.4-5.0); ALK PHOS 170 U/L (45-117); ANION GAP 12 MMOL/L (8-16); BILIRUBIN,TOTAL 0.4 mg/dL (0.2-1); BLOOD UREA NITROGEN 10 mg/dL (7-18); CALCIUM 8.3 mg/dL (8.5-10.1); CHLORIDE 102 mmol/L (98-107); CO2 21 mmol/L (21-32); GLUCOSE,RANDOM 124 mg/dL (74-106); MAGNESIUM 2.4 mg/dL (1.8-2.4); POTASSIUM 4.2 mmol/L (3.5-5.1); SGOT/AST 22 U/L (15-37); SGPT/ALT 29 U/L (13-61); SODIUM 135 mmol/L (136-145); TOT PROT 7.9 g/dl (6.4-8.2)
--- NOTE | 2018-01-30 10:45 | PN ---
Progress Note, Physician History of Present Illness: pulmonary alert,no distress,-sob,chest tube min drainage - Current Medication List Current Medications: Active Medications Acetaminophen (Tylenol -) 650 mg PO Q6H PRN PRN Reason: FEVER Last Admin: 01/29/18 17:38 Dose: 650 mg Albuterol/Ipratropium (Duoneb -) 1 amp NEB RTID [facility] Last Admin: 01/30/18 07:49 Dose: 1 amp Amlodipine Besylate (Norvasc -) 5 mg PO DAILY [facility] Last Admin: 01/29/18 10:13 Dose: 5 mg Atorvastatin Calcium (Lipitor -) 20 mg PO HS [facility] Last Admin: 01/29/18 21:50 Dose: 20 mg Budesonide/Formoterol Fumarate (Symbicort 80/4.5mcg -) 2 puff IH BID [facility] Last Admin: 01/29/18 21:51 Dose: 2 puff Folic Acid (Folic Acid -) 1 mg PO DAILY [facility] Last Admin: 01/29/18 10:13 Dose: 1 mg Guaifenesin (Mucinex -) 1,200 mg PO BID [facility] Last Admin: 01/29/18 21:50 Dose: 1,200 mg Piperacillin Sod/Tazobactam (Sod 4.5 gm/ Sodium Chloride) 100 mls @ 200 mls/hr IVPB Q8H-IV [facility]; Protocol Last Admin: 01/30/18 02:08 Dose: 200 mls/hr Insulin Aspart (Novolog Vial Sliding Scale -) 1 vial SQ ACHS [facility]; Protocol Last Admin: 01/30/18 07:00 Dose: Not Given Insulin Detemir (Levemir Vial) 5 units SQ DAILY@0800 [facility] Last Admin: 01/30/18 08:51 Dose: 5 units Ramipril (Altace -) 5 mg PO DAILY [facility] Last Admin: 01/29/18 10:13 Dose: 5 mg Ranitidine HCl (Zantac -) 150 mg PO BID [facility] Last Admin: 01/29/18 21:50 Dose: 150 mg - Objective Vital Signs: Vital Signs Temperature 98.2 F 01/30/18 06:00 Pulse Rate 108 H 01/30/18 09:30 Respiratory Rate 18 01/30/18 09:30 Blood Pressure 136/64 01/30/18 09:30 O2 Sat by Pulse Oximetry (%) 95 01/29/18 21:00 Constitutional: Yes: Well Nourished, Calm Eyes: Yes: WNL HENT: Yes: WNL Neck: Yes: WNL Cardiovascular: Yes: Regular Rate and Rhythm, S1, S2 Respiratory: Yes: Diminished Gastrointestinal: Yes: Normal Bowel Sounds, Soft Extremities: Yes: WNL Edema: No Labs: CBC, BMP 01/30/18 08:35 01/30/18 08:35 INR, PTT INR 1.40 (0.82-1.09) H 01/24/18 08:00 Assessment/Plan Problem List - Problems (1) Diabetes Code(s): E11.9 - TYPE 2 DIABETES MELLITUS WITHOUT COMPLICATIONS (2) Community acquired bacterial pneumonia Code(s): J15.9 - UNSPECIFIED BACTERIAL PNEUMONIA (3) Sepsis due to pneumonia Code(s): J18.9 - PNEUMONIA, UNSPECIFIED ORGANISM; A41.9 - SEPSIS, UNSPECIFIED ORGANISM (4) Anemia Code(s): D64.9 - ANEMIA, UNSPECIFIED (5) Lactic acid blood increased Code(s): R79.89 - OTHER SPECIFIED ABNORMAL FINDINGS OF BLOOD CHEMISTRY (6) Hypoalbuminemia Code(s): E88.09 - OTH DISORDERS OF PLASMA-PROTEIN METABOLISM, NEC (7) Hypomagnesemia Code(s): E83.42 - HYPOMAGNESEMIA (8) Hypocalcemia Code(s): E83.51 - HYPOCALCEMIA Assessment/Plan PNEUMONIA PLEURAL EFFUSION ? MALIGNANT,?INFECTIOUS OBESITY ASTHMA LIKELY SLEEP APNEA PLAN ABX as per ID O2 NEEDED INHALED BRONCHODILATORS SLEEP STUDIES OUTPATIENT THORACIC SURGERY EVALUATION FOR POSSIBLE VAT F/U CHEST X-RAY DR DE JESUS
[2018-01-30] MEDS: FOLIC ACID 1 MG TABLET (FP) PO SCH (10:48)
[2018-01-30] MEDS: RANITIDINE HCL 150 MG TABLET (FP) PO SCH ×2 (10:48→21:17)
[2018-01-30] MEDS: amLODIPine BESYLATE 5 MG TABLET (FP) PO SCH (10:48)
[2018-01-30] MEDS: RAMIPRIL 5 MG CAPSULE (FP) PO SCH (10:48)
[2018-01-30] MEDS: BUDESONIDE/FORMETEROL FUMARATE 80/4.5 mcg INHALER IH SCH ×2 (10:48→21:18)
[2018-01-30] MEDS: guaiFENesin 600 MG TABLET.ER (FP) PO SCH ×2 (10:48→21:18)
[2018-01-30] MEDS ORDERED: INSULIN (NOVOLOG) ASPART 100 UNITS/ML 10ML VIAL ONE ×2 (11:27→21:10)
[2018-01-30 12:06] LABS: ANISOCYTOSIS 2+; MACROCYTOSIS 0; OVALOCYTE 1+; PLATELET ESTIMATE INCREASED
--- NOTE | 2018-01-30 12:17 | PN ---
Progress Note (short form) - Note Progress Note: chart reviewed now with chest tube feels improved Vital Signs Period Temp Pulse Resp BP Sys/Baum Pulse Ox Last 24 Hr 98.2 F-101.1 F 89-108 18-20 117-136/47-82 95 cor-rrr lungs decreased bs on the right right chest tube abd soft,nt ext no edema CBC, BMP 01/30/18 08:35 01/30/18 08:35 Microbiology 01/25/18 15:20 Blood - Peripheral Venous Blood Culture - Preliminary NO GROWTH OBTAINED AFTER 96 HOURS, INCUBATION TO CONTINUE FOR 1 DAYS. 01/25/18 15:18 Blood - Peripheral Venous Blood Culture - Preliminary NO GROWTH OBTAINED AFTER 96 HOURS, INCUBATION TO CONTINUE FOR 1 DAYS. 01/28/18 12:25 Blood - Peripheral Venous Blood Culture - Preliminary NO GROWTH OBTAINED AFTER 24 HOURS, INCUBATION TO CONTINUE FOR 4 DAYS. 01/28/18 12:45 Blood - Peripheral Venous Blood Culture - Preliminary NO GROWTH OBTAINED AFTER 24 HOURS, INCUBATION TO CONTINUE FOR 4 DAYS. 01/26/18 10:45 Pleural Fluid Gram Stain - Final 01/26/18 10:45 Pleural Fluid Body Fluid Culture - Final NO GROWTH OF AEROBIC ORGANISMS AFTER 48 HOURS INCUBATION 01/26/18 10:45 Pleural Fluid Anaerobic Culture - Final NO ANAEROBES WERE ISOLATED 01/25/18 14:00 Sputum - Expectorated Gram Stain - Final 01/25/18 14:00 Sputum - Expectorated Sputum Culture - Final Yeast Like Organism 01/26/18 10:45 Pleural Fluid AFB Smear Concentration - Final 01/26/18 10:45 Pleural Fluid Mycobacterial Culture - Preliminary 01/26/18 10:45 Pleural Fluid DENZEL Preparation - Preliminary 01/26/18 10:45 Pleural Fluid Fungal Culture - Preliminary 01/25/18 14:00 Urine - Urine Clean Catch Urine Culture - Final NO GROWTH OBTAINED 01/22/18 11:50 Sputum - Expectorated AFB Smear Concentration - Final 01/22/18 11:50 Sputum - Expectorated Direct Acid Fast Bacilli Smear - Final 01/22/18 11:50 Sputum - Expectorated Mycobacterial Culture - Preliminary 01/21/18 10:35 Sputum - Expectorated AFB Smear Concentration - Final 01/21/18 10:35 Sputum - Expectorated Direct Acid Fast Bacilli Smear - Final 01/21/18 10:35 Sputum - Expectorated Mycobacterial Culture - Preliminary 01/20/18 12:45 Sputum - Expectorated Mycobacteria (PCR) - Preliminary 01/17/18 12:03 Blood - Peripheral Venous Blood Culture - Final NO GROWTH AFTER 5 DAYS INCUBATION 01/17/18 12:03 Blood - Peripheral Venous Blood Culture - Final NO GROWTH AFTER 5 DAYS INCUBATION 01/18/18 15:20 Sputum - Expectorated AFB Smear Concentration - Final 01/18/18 15:20 Sputum - Expectorated Direct Acid Fast Bacilli Smear - Final 01/18/18 15:20 Sputum - Expectorated Mycobacterial Culture - Preliminary 01/18/18 15:20 Sputum - Expectorated Gram Stain - Final 01/18/18 15:20 Sputum - Expectorated Sputum Culture - Final Yeast Like Organism 01/18/18 05:00 Sputum - Expectorated Gram Stain - Final 01/18/18 05:00 Sputum - Expectorated Sputum Culture - Final Yeast Like Organism 01/18/18 10:00 Urine - Urine Clean Catch Legionella Antigen - Final 01/18/18 10:00 Urine - Urine Clean Catch Streptococcus pneumoniae Antigen ( M - Final 01/17/18 12:50 Nasopharyngeal Swab Influenza Types A,B Antigen - Final 01/17/18 12:50 Nasopharyngeal Swab - Final a/p RML infiltrate exudative effusion s/p chest tube continue zosyn bronch vs VATS- pulmonary f/u in progress
--- NOTE | 2018-01-30 16:58 | PN ---
Physical Exam: SUBJECTIVE: Patient seen and examined at the bedside. offers no compliants. denies shortness of breath, denies discomfort or pain. OBJECTIVE: repeat chest xray in a.m. Vital Signs Period Temp Pulse Resp BP Sys/Baum Pulse Ox Last 24 Hr 98.2 F-101.1 F 89-108 18-20 117-136/64-82 95-95 GENERAL: The patient is awake, alert, and fully oriented, in no acute distress. HEAD: Normal with no signs of trauma. EYES: PERRL, extraocular movements intact, sclera anicteric, conjunctiva clear. No ptosis. ENT: Ears normal, nares patent, oropharynx clear without exudates, moist mucous membranes. NECK: Trachea midline, full range of motion, supple. LUNGS: right lung s/p pig tail placement, diminished breath sounds on right lung , left lung clear. HEART: Regular rate and rhythm ABDOMEN: Soft, nontender, nondistended, normoactive bowel sounds, no guarding, no rebound, no hepatosplenomegaly, no masses. EXTREMITIES: no edema. NEUROLOGICAL: Normal speech, gait not observed. PSYCH: Normal mood, normal affect. Laboratory Results - last 24 hr 01/26/18 01/29/18 01/29/18 10:45 17:37 21:08 WBC RBC Hgb Hct MCV MCH MCHC RDW Plt Count MPV Absolute Neuts (auto) Neutrophils % Lymphocytes % Monocytes % Eosinophils % Basophils % Nucleated RBC % Hypochromia Platelet Estimate Polychromasia Poikilocytosis Anisocytosis Microcytosis Macrocytosis Spherocytes Ovalocytes Sodium Potassium Chloride Carbon Dioxide Anion Gap BUN Creatinine Creat Clearance w eGFR POC Glucometer 166 142 Random Glucose Calcium Magnesium Total Bilirubin AST ALT Alkaline Phosphatase Total Protein Albumin LDH Serum/Fluid Ratio 460 Pleural Fluid Source Pleural fluid Pleural Color Yellow Pleural Appearance Clear Pleural WBC 395 Pleural RBC 3976 Pleural Neutrophils 77 Pleural Lymphocytes 10 Pleural Monocytes 12 Pleural Eosinophils 1 01/30/18 01/30/18 01/30/18 06:03 08:35 08:35 WBC 13.1 H RBC 4.92 Hgb 9.8 L Hct 31.9 L MCV 64.8 L MCH 19.9 L MCHC 30.7 L RDW 17.8 H Plt Count 644 H MPV 7.1 L Absolute Neuts (auto) 10.6 H Neutrophils % 80.3 Lymphocytes % 10.4 Monocytes % 7.5 Eosinophils % 1.3 D Basophils % 0.5 Nucleated RBC % 0 Hypochromia 3+ Platelet Estimate Increased Polychromasia 1+ Poikilocytosis 2+ Anisocytosis 2+ Microcytosis 2+ Macrocytosis 0 Spherocytes 1+ Ovalocytes 1+ Sodium 135 L Potassium 4.2 Chloride 102 Carbon Dioxide 21 Anion Gap 12 BUN 10 Creatinine 1.0 Creat Clearance w eGFR > 60 POC Glucometer 127 Random Glucose 124 H Calcium 8.3 L Magnesium 2.4 Total Bilirubin 0.4 AST 22 ALT 29 Alkaline Phosphatase 170 H Total Protein 7.9 Albumin 2.4 L LDH Serum/Fluid Ratio Pleural Fluid Source Pleural Color Pleural Appearance Pleural WBC Pleural RBC Pleural Neutrophils Pleural Lymphocytes Pleural Monocytes Pleural Eosinophils 01/30/18 11:22 WBC RBC Hgb Hct MCV MCH MCHC RDW Plt Count MPV Absolute Neuts (auto) Neutrophils % Lymphocytes % Monocytes % Eosinophils % Basophils % Nucleated RBC % Hypochromia Platelet Estimate Polychromasia Poikilocytosis Anisocytosis Microcytosis Macrocytosis Spherocytes Ovalocytes Sodium Potassium Chloride Carbon Dioxide Anion Gap BUN Creatinine Creat Clearance w eGFR POC Glucometer 231 Random Glucose Calcium Magnesium Total Bilirubin AST ALT Alkaline Phosphatase Total Protein Albumin LDH Serum/Fluid Ratio Pleural Fluid Source Pleural Color Pleural Appearance Pleural WBC Pleural RBC Pleural Neutrophils Pleural Lymphocytes Pleural Monocytes Pleural Eosinophils Active Medications Generic Name Dose Route Start Last Admin Trade Name Sreeq PRN Reason Stop Dose Admin Acetaminophen 650 mg 01/25/18 20:21 01/29/18 17:38 Tylenol - PO 650 mg Q6H PRN Administration FEVER Albuterol/Ipratropium 1 amp 01/26/18 08:00 01/30/18 14:05 Duoneb - NEB 1 amp RTID [facility] Administration Amlodipine Besylate 5 mg 01/26/18 10:00 01/30/18 10:48 Norvasc - PO 5 mg DAILY [facility] Administration Atorvastatin Calcium 20 mg 01/25/18 22:00 01/29/18 21:50 Lipitor - PO 20 mg HS [facility] Administration Budesonide/Formoterol Fumarate 2 puff 01/25/18 22:00 01/30/18 10:48 Symbicort 80/4.5mcg - IH 2 puff BID [facility] Administration Folic Acid 1 mg 01/26/18 10:00 01/30/18 10:48 Folic Acid - PO 1 mg DAILY [facility] Administration Guaifenesin 1,200 mg 01/25/18 22:00 01/30/18 10:48 Mucinex - PO 1,200 mg BID [facility] Administration Piperacillin Sod/Tazobactam 100 mls @ 200 mls/hr 01/26/18 02:00 01/30/18 10: 49 Sod 4.5 gm/ Sodium Chloride IVPB 200 mls/hr Q8H-IV [facility] Administration Protocol Insulin Aspart 1 vial 01/25/18 22:00 01/30/18 11:29 Novolog Vial Sliding Scale - SQ 4 units ACHS [facility] Administration Protocol Insulin Detemir 5 units 01/27/18 09:00 01/30/18 08:51 Levemir Vial SQ 5 units DAILY@0800 [facility] Administration Ramipril 5 mg 01/26/18 10:00 01/30/18 10:48 Altace - PO 5 mg DAILY [facility] Administration Ranitidine HCl 150 mg 01/25/18 22:00 01/30/18 10:48 Zantac - PO 150 mg BID [facility] Administration ASSESSMENT/PLAN: Patient is a 57 year old male with a significant past medical history of hypertension, diabetes, chronic right middle lobe collapse, and asthma. He presents to the ED on 01/17/2018 with c/o of fever, non-productive cough with right-sided pleuritic chest pain. He is being admitted for severe sepsis secondary to community acquired pneumonia. Imaging: CT chest: opacification with associated expansion of right mid lobe c/w infiltrate with several small internal bronchograms; moderate left pleural effusion; trace left pleural effusion; several enlarged mediastinal lymph nodes. Chest ultrasound: limited ultrasound of the right chest reveal the presence of a right pleural effusion and a density which could represent a mass or atelectasis. bronchoscopy may be helpful for further evaluation. ID/Pulm: Severe sepsis/CAP/bronchial asthma. Chronic right middle lobe collapse with pleural drainage on 01/26/18 to chest tube. overall <100 of straw colored drain output. repeat chest xray tomorrow. Leukocytosis improving, afebrile x 24 hours. mild tachycardia. repeat blood cultures negative to date. On Zosyn, duonebs and supplemental oxygen prn. ID following Pulmonary following. GI: Transaminitis, resolved Electrolyte imbalance Hyponatremia, improved daily cmp Endocrine: Diabetes/hyperglycemia Novolog SS, monitor BGMs. Card: Hypertension, controlled. continue amlodopoine Hyperlipidemia, chronic On Lipitor fen monitor electrolyte diabetic diet prophy scds Visit type - Emergency Visit Emergency Visit: Yes ED Registration Date: 01/17/18 Care time: The patient presented to the Emergency Department on the above date and was hospitalized for further evaluation of their emergent condition. - New Patient This patient is new to me today: No - Critical Care Critical Care patient: No - Discharge Referral Referred to [facility] Med P.C.: No
[2018-01-30] MEDS: ACETAMINOPHEN 325 MG TABLET (FP) PO PRN (17:16)
[2018-01-30] MEDS: ATORVASTATIN CA 20 MG TABLET (FP) PO SCH (21:17)
[2018-01-31] MEDS ORDERED: PIPERACILLIN/TAZOBACTAM 4.5 GM VIAL IVPB ONE ×3 (00:36→16:24)
[2018-01-31] MEDS ORDERED: SODIUM CHLORIDE 100 ML IVPB ONE ×3 (00:37→16:25)
[2018-01-31] MEDS: PIPERACILLIN/TAZOB 4.5 GM 4.5 GM in SODIUM CHLORIDE 100 ML IVPB SCH ×3 (02:20→17:07)
[2018-01-31] MEDS: INSULIN SLIDING SCALE (NOVOLOG) 1 VIAL SQ SCH ×4 (06:45→21:59)
[2018-01-31 07:29] LABS: BASO % 0.6 % (0-2.0); HEMATOCRIT 32.5 % (35.4-49); HEMOGLOBIN 9.9 GM/dL (11.7-16.9); LYMPH % 12.9 % (8-40); MCHC 30.5 g/dl (32.0-35.9); MEAN PLT VOLUME 7.2 fl (7.5-11.1); MONO % 6.8 % (3.8-10.2); NEUT % 77.7 % (42.8-82.8); PLATELET COUNT 662 K/MM3 (134-434); RDW 17.6 % (11.9-15.9); WHITE BLOOD COUNT 12.2 K/mm3 (4.0-10.0)
[2018-01-31] MEDS: ALBUTEROL SO4 2.5/IPRATROPIUM 0.5 INH SOL 3 ML VIAL.NEB. NEB SCH ×3 (07:35→20:30)
[2018-01-31 07:46] LABS: ALBUMIN 2.4 g/dl (3.4-5.0); ALK PHOS 167 U/L (45-117); ANION GAP 11 MMOL/L (8-16); BILIRUBIN,TOTAL 0.4 mg/dL (0.2-1); BLOOD UREA NITROGEN 9 mg/dL (7-18); CALCIUM 8.8 mg/dL (8.5-10.1); CHLORIDE 102 mmol/L (98-107); CO2 22 mmol/L (21-32); GLUCOSE,RANDOM 110 mg/dL (74-106); MAGNESIUM 2.5 mg/dL (1.8-2.4); POTASSIUM 4.3 mmol/L (3.5-5.1); SGOT/AST 23 U/L (15-37); SGPT/ALT 27 U/L (13-61); SODIUM 134 mmol/L (136-145)
[2018-01-31 07:52] LABS: MCH 19.8 pg (25.7-33.7)
[2018-01-31] MEDS ORDERED: PT OWN MED DRAWER 7, Y5N ONE ×2 (08:17→19:52)
[2018-01-31] MEDS: INSULIN (LEVEMIR) 100 UNITS/ML UNITS SQ SCH (08:44)
[2018-01-31] MEDS: FOLIC ACID 1 MG TABLET (FP) PO SCH (09:58)
[2018-01-31] MEDS: amLODIPine BESYLATE 5 MG TABLET (FP) PO SCH (09:58)
[2018-01-31] MEDS: guaiFENesin 600 MG TABLET.ER (FP) PO SCH ×2 (09:58→21:59)
[2018-01-31] MEDS: BUDESONIDE/FORMETEROL FUMARATE 80/4.5 mcg INHALER IH SCH ×2 (09:58→21:59)
[2018-01-31] MEDS: RANITIDINE HCL 150 MG TABLET (FP) PO SCH ×2 (09:58→21:59)
[2018-01-31] MEDS: RAMIPRIL 5 MG CAPSULE (FP) PO SCH (09:58)
--- NOTE | 2018-01-31 12:30 | PN ---
Progress Note, Physician History of Present Illness: pulmnoary alert,no distress,-sob,min chest tube drainage - Current Medication List Current Medications: Active Medications Acetaminophen (Tylenol -) 650 mg PO Q6H PRN PRN Reason: FEVER Last Admin: 01/30/18 17:16 Dose: 650 mg Albuterol/Ipratropium (Duoneb -) 1 amp NEB RTID [facility] Last Admin: 01/31/18 07:35 Dose: 1 amp Amlodipine Besylate (Norvasc -) 5 mg PO DAILY [facility] Last Admin: 01/31/18 09:58 Dose: 5 mg Atorvastatin Calcium (Lipitor -) 20 mg PO HS [facility] Last Admin: 01/30/18 21:17 Dose: 20 mg Budesonide/Formoterol Fumarate (Symbicort 80/4.5mcg -) 2 puff IH BID [facility] Last Admin: 01/31/18 09:58 Dose: 2 puff Folic Acid (Folic Acid -) 1 mg PO DAILY [facility] Last Admin: 01/31/18 09:58 Dose: 1 mg Guaifenesin (Mucinex -) 1,200 mg PO BID [facility] Last Admin: 01/31/18 09:58 Dose: 1,200 mg Piperacillin Sod/Tazobactam (Sod 4.5 gm/ Sodium Chloride) 100 mls @ 200 mls/hr IVPB Q8H-IV [facility]; Protocol Last Admin: 01/31/18 09:58 Dose: 200 mls/hr Insulin Aspart (Novolog Vial Sliding Scale -) 1 vial SQ ACHS [facility]; Protocol Last Admin: 01/31/18 11:46 Dose: 4 units Insulin Detemir (Levemir Vial) 5 units SQ DAILY@0800 [facility] Last Admin: 01/31/18 08:44 Dose: 5 units Ramipril (Altace -) 5 mg PO DAILY [facility] Last Admin: 01/31/18 09:58 Dose: 5 mg Ranitidine HCl (Zantac -) 150 mg PO BID [facility] Last Admin: 01/31/18 09:58 Dose: 150 mg - Objective Vital Signs: Vital Signs Temperature 98.3 F 01/31/18 06:17 Pulse Rate 93 H 01/31/18 06:17 Respiratory Rate 18 01/31/18 06:17 Blood Pressure 117/71 01/31/18 06:17 O2 Sat by Pulse Oximetry (%) 95 01/30/18 09:00 Constitutional: Yes: Well Nourished, Calm Eyes: Yes: WNL HENT: Yes: WNL Neck: Yes: WNL Cardiovascular: Yes: Regular Rate and Rhythm, S1, S2 Respiratory: Yes: CTA Bilaterally Gastrointestinal: Yes: Normal Bowel Sounds, Soft Extremities: Yes: WNL Edema: No Labs: CBC, BMP 01/31/18 06:00 01/31/18 06:00 INR, PTT INR 1.40 (0.82-1.09) H 01/24/18 08:00 Assessment/Plan Problem List - Problems (1) Diabetes Code(s): E11.9 - TYPE 2 DIABETES MELLITUS WITHOUT COMPLICATIONS (2) Community acquired bacterial pneumonia Code(s): J15.9 - UNSPECIFIED BACTERIAL PNEUMONIA (3) Sepsis due to pneumonia Code(s): J18.9 - PNEUMONIA, UNSPECIFIED ORGANISM; A41.9 - SEPSIS, UNSPECIFIED ORGANISM (4) Anemia Code(s): D64.9 - ANEMIA, UNSPECIFIED (5) Lactic acid blood increased Code(s): R79.89 - OTHER SPECIFIED ABNORMAL FINDINGS OF BLOOD CHEMISTRY (6) Hypoalbuminemia Code(s): E88.09 - OTH DISORDERS OF PLASMA-PROTEIN METABOLISM, NEC (7) Hypomagnesemia Code(s): E83.42 - HYPOMAGNESEMIA (8) Hypocalcemia Code(s): E83.51 - HYPOCALCEMIA Assessment/Plan PNEUMONIA PLEURAL EFFUSION EXUDATE ? MALIGNANT,?INFECTIOUS OBESITY ASTHMA LIKELY SLEEP APNEA PLAN ABX as per ID O2 NEEDED INHALED BRONCHODILATORS SLEEP STUDIES OUTPATIENT FLEX BRONCH AM CHEST CT DR DE JESUS
--- NOTE | 2018-01-31 14:27 | PN ---
Physical Exam: SUBJECTIVE: Patient seen and examined at the bedside. ambulating in room, in no acute distress. OBJECTIVE: thrombocytosis. will consult heme. Vital Signs Period Temp Pulse Resp BP Sys/Baum Pulse Ox Last 24 Hr 98.1 F-99.9 F 86-108 14-20 109-128/54-71 96 GENERAL: The patient is awake, alert, and fully oriented, in no acute distress. HEAD: Normal with no signs of trauma. EYES: PERRL, extraocular movements intact, sclera anicteric, conjunctiva clear. No ptosis. ENT: Ears normal, nares patent, oropharynx clear without exudates, moist mucous membranes. NECK: Trachea midline, full range of motion, supple. LUNGS: right lung s/p pig tail placement, very diminished breath sounds on right lung, left lung clear. HEART: Regular rate and rhythm ABDOMEN: Soft, nontender, nondistended, normoactive bowel sounds, no guarding, no rebound, no hepatosplenomegaly, no masses. EXTREMITIES: no edema. NEUROLOGICAL: Normal speech, gait not observed. 01/30/1818 01/31/18 17:19 20:56 06:00 WBC 12.2 H RBC 5.00 Hgb 9.9 L Hct 32.5 L MCV 65.0 L MCH 19.8 L MCHC 30.5 L RDW 17.6 H Plt Count 662 H MPV 7.2 L Absolute Neuts (auto) 9.5 H Neutrophils % 77.7 Lymphocytes % 12.9 D Monocytes % 6.8 Eosinophils % 2.0 Basophils % 0.6 Nucleated RBC % 0 Sodium Potassium Chloride Carbon Dioxide Anion Gap BUN Creatinine Creat Clearance w eGFR POC Glucometer 124 251 Random Glucose Calcium Magnesium Total Bilirubin AST ALT Alkaline Phosphatase Total Protein Albumin 01/31/18 01/31/18 01/31/18 06:00 06:36 11:44 WBC RBC Hgb Hct MCV MCH MCHC RDW Plt Count MPV Absolute Neuts (auto) Neutrophils % Lymphocytes % Monocytes % Eosinophils % Basophils % Nucleated RBC % Sodium 134 L Potassium 4.3 Chloride 102 Carbon Dioxide 22 Anion Gap 11 BUN 9 Creatinine 1.0 Creat Clearance w eGFR > 60 POC Glucometer 124 202 Random Glucose 110 H Calcium 8.8 Magnesium 2.5 H Total Bilirubin 0.4 AST 23 ALT 27 Alkaline Phosphatase 167 H Total Protein 8.0 Albumin 2.4 L Active Medications Generic Name Dose Route Start Last Admin Trade Name Freq PRN Reason Stop Dose Admin Acetaminophen 650 mg 01/25/18 20:21 01/30/18 17:16 Tylenol - PO 650 mg Q6H PRN Administration FEVER Albuterol/Ipratropium 1 amp 01/26/18 08:00 01/31/18 07:35 Duoneb - NEB 1 amp RTID [facility]INE Administration Amlodipine Besylate 5 mg 01/26/18 10:00 01/31/18 09:58 Norvasc - PO 5 mg DAILY [facility] Administration Atorvastatin Calcium 20 mg 01/25/18 22:00 01/30/18 21:17 Lipitor - PO 20 mg HS [facility] Administration Budesonide/Formoterol Fumarate 2 puff 01/25/18 22:00 01/31/18 09:58 Symbicort 80/4.5mcg - IH 2 puff BID [facility] Administration Folic Acid 1 mg 01/26/18 10:00 01/31/18 09:58 Folic Acid - PO 1 mg DAILY [facility] Administration Guaifenesin 1,200 mg 01/25/18 22:00 01/31/18 09:58 Mucinex - PO 1,200 mg BID [facility] Administration Piperacillin Sod/Tazobactam 100 mls @ 200 mls/hr 01/26/18 02:00 01/31/18 09: 58 Sod 4.5 gm/ Sodium Chloride IVPB 200 mls/hr Q8H-IV [facility] Administration Protocol Insulin Aspart 1 vial 01/25/18 22:00 01/31/18 11:46 Novolog Vial Sliding Scale - SQ 4 units ACHS [facility] Administration Protocol Insulin Detemir 5 units 01/27/18 09:00 01/31/18 08:44 Levemir Vial SQ 5 units DAILY@0800 [facility] Administration Ramipril 5 mg 01/26/18 10:00 01/31/18 09:58 Altace - PO 5 mg DAILY [facility] Administration Ranitidine HCl 150 mg 01/25/18 22:00 01/31/18 09:58 Zantac - PO 150 mg BID [facility] Administration ASSESSMENT/PLAN: Patient is a 57 year old male with a significant past medical history of hypertension, diabetes, chronic right middle lobe collapse, and asthma. He presents to the ED on 01/17/2018 with c/o of fever, non-productive cough with right-sided pleuritic chest pain. He is being admitted for severe sepsis secondary to community acquired pneumonia. Imaging: -CT chest: opacification with associated expansion of right mid lobe c/w infiltrate with several small internal bronchograms; moderate left pleural effusion; trace left pleural effusion; several enlarged mediastinal lymph nodes. -Chest ultrasound: limited ultrasound of the right chest reveal the presence of a right pleural effusion and a density which could represent a mass or atelectasis. bronchoscopy may be helpful for further evaluation. -chest xray: 01/31. chest tube stable. decrease in right fluid. ID/Pulm: Severe sepsis/CAP/bronchial asthma. Chronic right middle lobe collapse with pleural drainage on 01/26/18 to chest tube. overall <100 of straw colored drain output. Leukocytosis improving, tmax 99.9, tachycardia resolved. repeat blood cultures negative to date. On Zosyn, duonebs and supplemental oxygen prn. ID following. pulmonary following. Patient for possible bronchoscopy tomorrow, npo at midnight. Hematology: Thrombocytosis. will consult hematology. GI: Transaminitis, resolved Electrolyte imbalance Hyponatremia, improved daily cmp Endocrine: Diabetes/hyperglycemia Novolog SS, monitor BGMs. Card: Hypertension, controlled. continue amlodopoine Hyperlipidemia, chronic On Lipitor fen monitor electrolyte diabetic diet prophy bilateral SCDs patient ambulatory. heparin, hold at midnight. full code Visit type - Emergency Visit Emergency Visit: Yes ED Registration Date: 01/17/18 Care time: The patient presented to the Emergency Department on the above date and was hospitalized for further evaluation of their emergent condition. - New Patient This patient is new to me today: No - Critical Care Critical Care patient: No - Discharge Referral Referred to [facility] Med P.C.: No
--- NOTE | 2018-01-31 17:03 | CONSULT ---
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 Drain placed. No hemoptysis. Endorses 10lb weight loss over last year. Denies TB hx but is from [place]. 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 No: AFIB Pulmonary: Yes: Asthma, Sleep Apnea (is likely ) Gastrointestinal: No: Ascites, GI Bleed Hepatobiliary: No: Cirrhosis Renal/: No: Renal Failure Psych: No: Addictions Endocrine: Yes: Diabetes Mellitus - Alcohol/Substance Use Hx Alcohol Use: No - Smoking History Smoking history: Never smoked Have you smoked in the past 12 months: No - Social History Usual Living Arrangement: With Spouse ADL: Independent History of Recent Travel: No Home Medications - Allergies Allergies/Adverse Reactions: Allergies Allergy/AdvReac Type Severity Reaction Status Date / Time No Known Drug Allergies Allergy Verified 01/17/18 10:58 DUST AdvReac Uncoded 01/17/18 10:58 - Home Medications Home Medications: Ambulatory Orders Acetaminophen 650 mg PO Q6H PRN 01/17/18 Albuterol Sulfate Inhaler - [Ventolin Hfa Inhaler -] 2 inh PO TID 01/17/18 Amlodipine Besylate [Norvasc -] 5 mg PO DAILY 01/17/18 Atorvastatin Ca [Lipitor] 20 mg PO DAILY 01/17/18 Azithromycin 250 mg PO DAILY 01/17/18 Cyanocobalamin (Vitamin B-12) [Vitamin B-12] 1,000 mcg PO DAILY 01/17/18 Fluticasone Propionate 2 inh IH BID 01/17/18 Folic Acid 1 mg PO DAILY 01/17/18 Ibuprofen [Motrin -] 400 mg PO TID PRN 01/17/18 Ramipril [Altace] 5 mg PO DAILY 01/17/18 Family Disease History - Family Disease History Family History: Unremarkable Review of Systems - Review of Systems Constitutional: reports: Weakness Eyes: reports: No Symptoms HENT: reports: No Symptoms Neck: reports: No Symptoms Cardiovascular: reports: No Symptoms Respiratory: reports: SOB on Exertion Gastrointestinal: reports: No Symptoms Physical Exam Vital Signs: Vital Signs Temperature 98.6 F 01/31/18 15:00 Pulse Rate 96 H 01/31/18 15:00 Respiratory Rate 18 01/31/18 15:00 Blood Pressure 128/70 01/31/18 15:00 O2 Sat by Pulse Oximetry (%) 96 01/31/18 09:00 Constitutional: Yes: Well Nourished Eyes: Yes: WNL HENT: Yes: WNL Cardiovascular: Yes: Regular Rate and Rhythm Respiratory: Yes: Diminished (right base) Gastrointestinal: Yes: WNL Extremities: Yes: WNL Labs: CBC, BMP 01/31/18 06:00 01/31/18 06:00 Imaging - Results Chest X-ray: Image Reviewed Cat Scan: Image Reviewed Problem List - Problems (1) Community acquired bacterial pneumonia Code(s): J15.9 - UNSPECIFIED BACTERIAL PNEUMONIA (2) Sepsis due to pneumonia Code(s): J18.9 - PNEUMONIA, UNSPECIFIED ORGANISM; A41.9 - SEPSIS, UNSPECIFIED ORGANISM Assessment/Plan Imp/Plan: PNA with loculated effusion, chronic RML syndrome Plan--Bronchoscopy tomorrow for possible biopsy of RML (r/o carcinoid). Would likely need VATS to open up lower lobe. May ultimately need lower lobectomy. NPO post MN. R/B/A's discussed with patient regarding procedure and consent was obtained.
--- NOTE | 2018-01-31 18:17 | CONSULT ---
Consult Consult Specialty:: Heme/onc Referred by:: KAYLEEN Rider Reason for Consultation:: Thrombocytosis - History of Present Illness Chief Complaint: Pneumonia History of Present Illness: 57M with HTN, DM, and asthma admitted on 01/17 with CAP c/b severe sepsis and loculated effusion. Has been requiring chest tube since 01/26/18 for RML collapse. Planned for bronch tomorrow with possibly bipsy of RML (to r/o carcinoid) and possible VATS. Pt with persistently elevated platelet count Plt count was ~400 on admission and has stayed in 500-600s. Leukocytosis resolving. Only prior available labs are from 2015 when plt count was normal. Pt denies ever having been told about elevated plt counts or any other abnormalities in blood tests. Feels well overall. No hx of thrombosis. 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 No: AFIB Pulmonary: Yes: Asthma, Sleep Apnea (is likely ) Gastrointestinal: No: Ascites, GI Bleed Hepatobiliary: No: Cirrhosis Renal/: No: Renal Failure Psych: No: Addictions Endocrine: Yes: Diabetes Mellitus - Alcohol/Substance Use Hx Alcohol Use: No - Smoking History Smoking history: Never smoked Have you smoked in the past 12 months: No - Social History Usual Living Arrangement: With Spouse ADL: Independent History of Recent Travel: No Home Medications - Allergies Allergies/Adverse Reactions: Allergies Allergy/AdvReac Type Severity Reaction Status Date / Time No Known Drug Allergies Allergy Verified 01/17/18 10:58 DUST AdvReac Uncoded 01/17/18 10:58 - Home Medications Home Medications: Ambulatory Orders Acetaminophen 650 mg PO Q6H PRN 01/17/18 Albuterol Sulfate Inhaler - [Ventolin Hfa Inhaler -] 2 inh PO TID 01/17/18 Amlodipine Besylate [Norvasc -] 5 mg PO DAILY 01/17/18 Atorvastatin Ca [Lipitor] 20 mg PO DAILY 01/17/18 Azithromycin 250 mg PO DAILY 01/17/18 Cyanocobalamin (Vitamin B-12) [Vitamin B-12] 1,000 mcg PO DAILY 01/17/18 Fluticasone Propionate 2 inh IH BID 01/17/18 Folic Acid 1 mg PO DAILY 01/17/18 Ibuprofen [Motrin -] 400 mg PO TID PRN 01/17/18 Ramipril [Altace] 5 mg PO DAILY 01/17/18 Physical Exam Vital Signs: Vital Signs Temperature 98.6 F 01/31/18 15:00 Pulse Rate 96 H 01/31/18 15:00 Respiratory Rate 18 01/31/18 15:00 Blood Pressure 128/70 01/31/18 15:00 O2 Sat by Pulse Oximetry (%) 96 01/31/18 09:00 Constitutional: Yes: Well Nourished. No: No Distress Cardiovascular: Yes: WNL, Regular Rate and Rhythm Respiratory: Yes: Regular, Diminished (right base) Gastrointestinal: Yes: Normal Bowel Sounds, Soft. No: Tenderness, Epigastrium Extremities: Yes: WNL Edema: No Neurological: Yes: Alert, Oriented ...Motor Strength: WNL Labs: CBC, BMP 01/31/18 06:00 01/31/18 06:00 Assessment/Plan 57M with HTN, DM, and asthma admitted on 01/17 with CAP c/b loculated effusion. Thrombocytosis is most likely reactive given severe infection. Expect it to improve with resolution of PNA/effusion. Would continue to trend CBC. Possibly has iron deficiency that may be contributing given microcytic anemia. Needs iron studies when clinically better. May also have beta thal trait as RBC count is normal in setting of decreased Hgb but as MCV is 60s now and was ~ 80 in 2015, a component of iron deficiency is likely.
[2018-01-31] MEDS ORDERED: INSULIN (LEVEMIR) 100 UNITS/ML UNITS SQ ONE (19:52)
[2018-01-31] MEDS: ATORVASTATIN CA 20 MG TABLET (FP) PO SCH (21:59)
[2018-01-31] MEDS ORDERED: HEPARIN NA (PORCINE) 5,000 UNITS/ML 1ML VIAL SQ SCH (22:00)
[2018-02-01] MEDS ORDERED: SODIUM CHLORIDE 100 ML IVPB ONE ×3 (02:49→19:19)
[2018-02-01] MEDS ORDERED: PIPERACILLIN/TAZOBACTAM 4.5 GM VIAL IVPB ONE ×3 (02:49→19:19)
[2018-02-01] MEDS: PIPERACILLIN/TAZOB 4.5 GM 4.5 GM in SODIUM CHLORIDE 100 ML IVPB SCH ×2 (03:06→09:57)
[2018-02-01] MEDS: INSULIN SLIDING SCALE (NOVOLOG) 1 VIAL SQ SCH ×3 (06:57→16:30)
[2018-02-01] MEDS: ALBUTEROL SO4 2.5/IPRATROPIUM 0.5 INH SOL 3 ML VIAL.NEB. NEB SCH ×3 (07:30→19:42)
[2018-02-01] MEDS: INSULIN (LEVEMIR) 100 UNITS/ML UNITS SQ SCH (08:10)
[2018-02-01 09:25] LABS: BASO % 1.2 % (0-2.0); EOS % 1.6 % (0-4.5); HEMATOCRIT 32.8 % (35.4-49); HEMOGLOBIN 10.1 GM/dL (11.7-16.9); LYMPH % 9.4 % (8-40); MCHC 30.7 g/dl (32.0-35.9); MEAN CELL VOLUME 65.2 fl (80-96); MEAN PLT VOLUME 7.1 fl (7.5-11.1); MONO % 6.8 % (3.8-10.2); PLATELET COUNT 629 K/MM3 (134-434); RBC 5.03 M/mm3 (4.00-5.60); RDW 18.1 % (11.9-15.9); WHITE BLOOD COUNT 10.8 K/mm3 (4.0-10.0)
[2018-02-01] MEDS: FOLIC ACID 1 MG TABLET (FP) PO SCH (09:52)
[2018-02-01] MEDS: guaiFENesin 600 MG TABLET.ER (FP) PO SCH (09:52)
[2018-02-01] MEDS: RANITIDINE HCL 150 MG TABLET (FP) PO SCH (09:52)
[2018-02-01] MEDS: RAMIPRIL 5 MG CAPSULE (FP) PO SCH (09:52)
[2018-02-01] MEDS: amLODIPine BESYLATE 5 MG TABLET (FP) PO SCH (09:52)
[2018-02-01 09:54] LABS: INR 1.35 (0.83-1.09)
[2018-02-01] MEDS ORDERED: PT OWN MED DRAWER 7, Y5N ONE (09:54)
[2018-02-01] MEDS: BUDESONIDE/FORMETEROL FUMARATE 80/4.5 mcg INHALER IH SCH (09:57)
[2018-02-01 10:04] LABS: ALBUMIN 2.5 g/dl (3.4-5.0); ALK PHOS 159 U/L (45-117); ANION GAP 11 MMOL/L (8-16); BILIRUBIN,TOTAL 0.4 mg/dL (0.2-1); BLOOD UREA NITROGEN 13 mg/dL (7-18); CALCIUM 8.6 mg/dL (8.5-10.1); CHLORIDE 100 mmol/L (98-107); CO2 24 mmol/L (21-32); GLUCOSE,RANDOM 123 mg/dL (74-106); MAGNESIUM 2.4 mg/dL (1.8-2.4); POTASSIUM 4.2 mmol/L (3.5-5.1); SGOT/AST 24 U/L (15-37); SGPT/ALT 27 U/L (13-61); SODIUM 135 mmol/L (136-145); TOT PROT 8.1 g/dl (6.4-8.2)
--- NOTE | 2018-02-01 11:29 | PN ---
Progress Note (short form) - Note Progress Note: PULMONARY Denies shortness of breath. Minimal nonproductive cough. Vital Signs Period Temp Pulse Resp BP Sys/Baum Pulse Ox Last 24 Hr 98.0 F-98.8 F 87-103 18-20 120-137/65-74 96 Gen: NAD at rest Heart: RRR Lung: decreased breath sounds at the bases Abd: soft, nontender Ext: no edema Chest tube: serous fluid, no air leak CBC, BMP 02/01/18 09:20 02/01/18 09:20 Active Medications Acetaminophen (Tylenol -) 650 mg PO Q6H PRN PRN Reason: FEVER Last Admin: 01/30/18 17:16 Dose: 650 mg Albuterol/Ipratropium (Duoneb -) 1 amp NEB RTID [facility] Last Admin: 02/01/18 07:30 Dose: 1 amp Amlodipine Besylate (Norvasc -) 5 mg PO DAILY [facility] Last Admin: 02/01/18 09:52 Dose: Not Given Atorvastatin Calcium (Lipitor -) 20 mg PO HS [facility] Last Admin: 01/31/18 21:59 Dose: 20 mg Budesonide/Formoterol Fumarate (Symbicort 80/4.5mcg -) 2 puff IH BID [facility] Last Admin: 02/01/18 09:57 Dose: 2 puff Folic Acid (Folic Acid -) 1 mg PO DAILY [facility] Last Admin: 02/01/18 09:52 Dose: Not Given Guaifenesin (Mucinex -) 1,200 mg PO BID [facility] Last Admin: 02/01/18 09:52 Dose: Not Given Piperacillin Sod/Tazobactam (Sod 4.5 gm/ Sodium Chloride) 100 mls @ 200 mls/hr IVPB Q8H-IV [facility]; Protocol Last Admin: 02/01/18 09:57 Dose: 200 mls/hr Insulin Aspart (Novolog Vial Sliding Scale -) 1 vial SQ ACHS [facility]; Protocol Last Admin: 02/01/18 06:57 Dose: Not Given Insulin Detemir (Levemir Vial) 5 units SQ DAILY@0800 [facility] Last Admin: 02/01/18 08:10 Dose: Not Given Ramipril (Altace -) 5 mg PO DAILY [facility] Last Admin: 02/01/18 09:52 Dose: Not Given Ranitidine HCl (Zantac -) 150 mg PO BID [facility] Last Admin: 02/01/18 09:52 Dose: Not Given A/P Pneumonia Right Pleural Effusion - Exudate Asthma HTN - continue antibiotics - for bronchoscopy today - inhaled bronchodilators - DVT prophylaxis
[2018-02-01] MEDS ORDERED: ROCURONIUM BROMIDE 50 MG/5 ML VIAL ONE ×2 (13:43→16:03)
[2018-02-01] MEDS ORDERED: MIDAZOLAM HCL 2 MG/2 ML SINGLE DOSE VIAL ONE (13:43)
[2018-02-01] MEDS ORDERED: PROPOFOL 20 ML ONE (13:43)
[2018-02-01] MEDS ORDERED: LIDOCAINE 1%/EPI 1:100000 (20 ML MULTI DOSE VIAL) ONE (13:56)
[2018-02-01] MEDS ORDERED: EPINEPHrine/PF 1 MG/1 ML (1:1,000) AMPULE ONE (13:56)
[2018-02-01] MEDS ORDERED: BUPIVACAINE HCL/PF 0.25% (2.5MG/ML) 10 ML VIAL ONE (13:56)
--- NOTE | 2018-02-01 14:22 | PN ---
Physical Exam: SUBJECTIVE: Patient seen and examined at the bedside. feels well, minimal cough. in no acute distress. OBJECTIVE: patient for a bronchoscopy today, monitor in ICU post procedure. Vital Signs Period Temp Pulse Resp BP Sys/Baum Pulse Ox Last 24 Hr 98.0 F-99.1 F 87-103 18-20 120-137/65-75 96-96 GENERAL: The patient is awake, alert, and fully oriented, in no acute distress. HEAD: Normal with no signs of trauma. EYES: PERRL, extraocular movements intact, sclera anicteric, conjunctiva clear. No ptosis. ENT: Ears normal, nares patent, oropharynx clear without exudates, moist mucous membranes. NECK: Trachea midline, full range of motion, supple. LUNGS: right lung s/p pig tail placement, very diminished breath sounds on right lung, left lung clear. HEART: Regular rate and rhythm ABDOMEN: Soft, nontender, nondistended, normoactive bowel sounds, no guarding, no rebound, no hepatosplenomegaly, no masses. EXTREMITIES: no edema. NEUROLOGICAL: Normal speech, gait not observed. Laboratory Results - last 24 hr 01/31/18 01/31/18 02/01/18 17:10 21:58 06:56 WBC RBC Hgb Hct MCV MCH MCHC RDW Plt Count MPV Absolute Neuts (auto) Neutrophils % Lymphocytes % Monocytes % Eosinophils % Basophils % Nucleated RBC % PT with INR INR Sodium Potassium Chloride Carbon Dioxide Anion Gap BUN Creatinine Creat Clearance w eGFR POC Glucometer 95 107 126 Random Glucose Calcium Magnesium Total Bilirubin AST ALT Alkaline Phosphatase Total Protein Albumin 02/01/18 02/01/18 02/01/18 09:20 09:20 09:20 WBC 10.8 H RBC 5.03 Hgb 10.1 L Hct 32.8 L MCV 65.2 L MCH 20.0 L MCHC 30.7 L RDW 18.1 H Plt Count 629 H MPV 7.1 L Absolute Neuts (auto) 8.7 H Neutrophils % 81.0 Lymphocytes % 9.4 D Monocytes % 6.8 Eosinophils % 1.6 Basophils % 1.2 Nucleated RBC % 0 PT with INR 16.00 H INR 1.35 H Sodium 135 L Potassium 4.2 Chloride 100 Carbon Dioxide 24 Anion Gap 11 BUN 13 Creatinine 1.0 Creat Clearance w eGFR > 60 POC Glucometer Random Glucose 123 H Calcium 8.6 Magnesium 2.4 Total Bilirubin 0.4 AST 24 ALT 27 Alkaline Phosphatase 159 H Total Protein 8.1 Albumin 2.5 L 02/01/18 11:00 WBC RBC Hgb Hct MCV MCH MCHC RDW Plt Count MPV Absolute Neuts (auto) Neutrophils % Lymphocytes % Monocytes % Eosinophils % Basophils % Nucleated RBC % PT with INR INR Sodium Potassium Chloride Carbon Dioxide Anion Gap BUN Creatinine Creat Clearance w eGFR POC Glucometer 125 Random Glucose Calcium Magnesium Total Bilirubin AST ALT Alkaline Phosphatase Total Protein Albumin Active Medications Generic Name Dose Route Start Last Admin Trade Name Freq PRN Reason Stop Dose Admin Acetaminophen 650 mg 01/25/18 20:21 01/30/18 17:16 Tylenol - PO 650 mg Q6H PRN Administration FEVER Albuterol/Ipratropium 1 amp 01/26/18 08:00 02/01/18 13:55 Duoneb - NEB Not Given RTID [facility] Amlodipine Besylate 5 mg 01/26/18 10:00 02/01/18 09:52 Norvasc - PO Not Given DAILY [facility] Atorvastatin Calcium 20 mg 01/25/18 22:00 01/31/18 21:59 Lipitor - PO 20 mg HS [facility] Administration Budesonide/Formoterol Fumarate 2 puff 01/25/18 22:00 02/01/18 09:57 Symbicort 80/4.5mcg - IH 2 puff BID [facility] Administration Folic Acid 1 mg 01/26/18 10:00 02/01/18 09:52 Folic Acid - PO Not Given DAILY [facility] Guaifenesin 1,200 mg 01/25/18 22:00 02/01/18 09:52 Mucinex - PO Not Given BID [facility] Piperacillin Sod/Tazobactam 100 mls @ 200 mls/hr 01/26/18 02:00 02/01/18 09: 57 Sod 4.5 gm/ Sodium Chloride IVPB 200 mls/hr Q8H-IV [facility] Administration Protocol Insulin Aspart 1 vial 01/25/18 22:00 02/01/18 12:25 Novolog Vial Sliding Scale - SQ Not Given ACHS [facility] Protocol Insulin Detemir 5 units 01/27/18 09:00 02/01/18 08:10 Levemir Vial SQ Not Given DAILY@0800 [facility] Ramipril 5 mg 01/26/18 10:00 02/01/18 09:52 Altace - PO Not Given DAILY [facility] Ranitidine HCl 150 mg 01/25/18 22:00 02/01/18 09:52 Zantac - PO Not Given BID [facility] ASSESSMENT/PLAN: Patient is a 57 year old male with a significant past medical history of hypertension, diabetes, chronic right middle lobe collapse, and asthma. He presents to the ED on 01/17/2018 with c/o of fever, non-productive cough with right-sided pleuritic chest pain. He is being admitted for severe sepsis secondary to community acquired pneumonia. Imaging: -CT chest: opacification with associated expansion of right mid lobe c/w infiltrate with several small internal bronchograms; moderate left pleural effusion; trace left pleural effusion; several enlarged mediastinal lymph nodes. -Chest ultrasound: limited ultrasound of the right chest reveal the presence of a right pleural effusion and a density which could represent a mass or atelectasis. bronchoscopy may be helpful for further evaluation. -chest xray: 01/31. chest tube stable. decrease in right fluid. -surgical pathology report: pleural fluid no malignant cells identified, acute inflammatory infiltrate comprised of numerous neutrophils, rare lymphocytes. ID/Pulm: Severe sepsis/CAP/bronchial asthma. Chronic right middle lobe collapse with pleural drainage on 01/26/18 to chest tube. overall <100 of straw colored drain output since insertion Leukocytosis improving, afebrile. repeat blood cultures negative to date. On Zosyn, duonebs and supplemental oxygen prn. ID following. pulmonary following. Patient for bronchoscopy today, monitor in icu post procedure. Hematology: Thrombocytosis. hematology following. GI: Transaminitis, resolved Electrolyte imbalance Hyponatremia, improved daily cmp Endocrine: Diabetes/hyperglycemia. Novolog SS, monitor BGMs. Card: Hypertension, controlled. continue amlodopoine Hyperlipidemia, chronic On Lipitor fen monitor electrolyte diabetic diet prophy bilateral SCDs patient ambulatory. heparin tid full code Visit type - Emergency Visit Emergency Visit: Yes ED Registration Date: 01/17/18 Care time: The patient presented to the Emergency Department on the above date and was hospitalized for further evaluation of their emergent condition. - New Patient This patient is new to me today: No - Critical Care Critical Care patient: No - Discharge Referral Referred to [facility] No
[2018-02-01] MEDS ORDERED: PIPERACILLIN/TAZOBACTAM 3.375 GM VIAL IVPB ONE (14:40)
[2018-02-01] MEDS ORDERED: ceFAZolin 2 GRAM PREMIX BAG IVPB ONE (14:53)
[2018-02-01] MEDS ORDERED: fentaNYL CITRATE 250 MCG/5 ML VIAL ONE (15:31)
[2018-02-01] MEDS ORDERED: BUPIVACAINE HCL/PF (5 MG/ML) 30 ML VIAL IJ ONE ×2 (15:34)
[2018-02-01] MEDS ORDERED: LIDOCAINE 1%/EPI 1:100000 (50 ML MULTI DOSE VIAL) NR ONE ×2 (15:34)
[2018-02-01] MEDS ORDERED: GLYCOPYRROLATE 0.2 MG/1 ML VIAL ONE (17:24)
[2018-02-01] MEDS ORDERED: NEOSTIGMINE METHYLSULFATE 0.5 MG/ML - 10 ML MDV ONE (17:24)
--- NOTE | 2018-02-01 17:52 | OP ---
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 Unclear if nodule (carcinoid) or old granulomatous disease; VATS: Fibrinous exudate posterior to collapsed right lower lobe, adhesions throughout, RUL lysed adhesions, RML lysed adhesions, RLL lysed adhesions. Pleura appeared inflamed. Post-Operative Diagnosis: Same as Pre-op Surgeon: David Turpin Pin Puller: Angel Almaraz Anesthesiologist/CANDY COOKER HELPER: Chadwick Carson Specimens Removed: Bronchial bx from RML, Pleural bx Estimated Blood Loss (mls): 100 Drains & Tubes with Location: Right chest tube Operative Report Dictated: Yes
[2018-02-01] MEDS ORDERED: ONDANSETRON 4 MG/2 ML VIAL IVPUSH PRN (17:56)
[2018-02-01] MEDS ORDERED: HYDROmorphone *PCA* 10MG/50ML DISP.SYRIN PCA SCH (18:00)
[2018-02-01] MEDS ORDERED: LACTATED RINGERS SOLUTION 1,000 ML IV SCH (18:00)
[2018-02-01] MEDS ORDERED: HYDROmorphone *PCA* 10MG/50ML DISP.SYRIN PCA ONE (19:01)
[2018-02-01] MEDS ORDERED: SODIUM CHLORIDE 1,000 ML IV SCH (20:30)
[2018-02-01] MEDS ORDERED: HEPARIN NA (PORCINE) 5,000 UNITS/ML 1ML VIAL ONE (21:21)
[2018-02-01] MEDS: HEPARIN NA (PORCINE) 5,000 UNITS/ML 1ML VIAL SQ SCH (21:29)
[2018-02-01] MEDS: ATORVASTATIN CA 20 MG TABLET (FP) PO SCH (21:59)
[2018-02-02] MEDS ORDERED: PIPERACILLIN/TAZOBACTAM 4.5 GM VIAL IVPB ONE ×3 (01:04→17:05)
[2018-02-02] MEDS ORDERED: SODIUM CHLORIDE 100 ML IVPB ONE ×3 (01:04→17:05)
[2018-02-02] MEDS: PIPERACILLIN/TAZOB 4.5 GM 4.5 GM in SODIUM CHLORIDE 100 ML IVPB SCH ×3 (01:08→17:20)
[2018-02-02 06:35] LABS: BASO % 0.6 % (0-2.0); EOS % 1.7 % (0-4.5); HEMOGLOBIN 7.9 GM/dL (11.7-16.9); LYMPH % 14.5 % (8-40); MCH 20.1 pg (25.7-33.7); MCHC 30.4 g/dl (32.0-35.9); MEAN CELL VOLUME 66.1 fl (80-96); MEAN PLT VOLUME 7.2 fl (7.5-11.1); MONO % 8.8 % (3.8-10.2); NEUT % 74.4 % (42.8-82.8); PLATELET COUNT 496 K/MM3 (134-434); RBC 3.93 M/mm3 (4.00-5.60); RDW 17.8 % (11.9-15.9); WHITE BLOOD COUNT 9.1 K/mm3 (4.0-10.0)
[2018-02-02] MEDS: HEPARIN NA (PORCINE) 5,000 UNITS/ML 1ML VIAL SQ SCH ×3 (07:15→21:05)
[2018-02-02] MEDS ORDERED: traMADol HCL 50 MG TABLET PO PRN (07:49)
[2018-02-02] MEDS: INSULIN SLIDING SCALE (NOVOLOG) 1 VIAL SQ SCH ×4 (08:02→21:05)
[2018-02-02 08:09] LABS: ALK PHOS 114 U/L (45-117); ANION GAP 9 MMOL/L (8-16); BILIRUBIN,TOTAL 0.4 mg/dL (0.2-1); BLOOD UREA NITROGEN 19 mg/dL (7-18); CALCIUM 8.3 mg/dL (8.5-10.1); CHLORIDE 101 mmol/L (98-107); CO2 25 mmol/L (21-32); GLUCOSE,RANDOM 122 mg/dL (74-106); MAGNESIUM 2.4 mg/dL (1.8-2.4); POTASSIUM 4.8 mmol/L (3.5-5.1); SGOT/AST 21 U/L (15-37); SGPT/ALT 21 U/L (13-61); SODIUM 136 mmol/L (136-145); TOT PROT 6.8 g/dl (6.4-8.2)
[2018-02-02] MEDS: ALBUTEROL SO4 2.5/IPRATROPIUM 0.5 INH SOL 3 ML VIAL.NEB. NEB SCH ×2 (08:10→20:38)
--- NOTE | 2018-02-02 08:11 | PN ---
Progress Note (short form) - Note Progress Note: 57yo M s/p Right VATS POD 1, pt seen and examined in the ICU. Pt states that he is feeling well. Pt denies SOB. Complains of some Rt sided chest pain around chest tube. Pt denies fever, chills, n/v. Last Vital Signs Temp Pulse Resp BP Pulse Ox 98.4 F 93 H 18 118/68 100 02/02/18 06:00 02/02/18 06:00 02/02/18 06:00 02/02/18 06:00 02/01/18 21:50 CBC, BMP 02/02/18 05:30 02/02/18 05:30 PE: Gen: A&O x3 Resp: breathing comfortably, Chest: Right chest tube in place, dressing in place clean, no erythema. Serosanguinous drainage Output: 1200ml Ext: no edema Problem List - Problems (1) Community acquired bacterial pneumonia Assessment/Plan: Plan -follow up CXR -advance diet -follow chest tube output -DC GENERAL MAGISTRATE Code(s): J15.9 - UNSPECIFIED BACTERIAL PNEUMONIA
--- NOTE | 2018-02-02 08:41 | PN ---
Progress Note (short form) - Note Progress Note: Anesthesia POD#1 S/P VATS Right under GA and COMMODITIES REQUIREMENTS ANALYST VSS,food is advanced,no N/V,pain is under control. Breathing is better. A/P Discontinue the COMMODITIES REQUIREMENTS ANALYST,switched to oral pain meds. Stable otherwise. Sahra Briceño MD.
--- NOTE | 2018-02-02 08:47 | PN ---
Progress Note (short form) - Note Progress Note: Patient is feeling better with no acute distress, no nausea or vomiting. Vital Signs Temperature 98.4 F 02/02/18 06:00 Pulse Rate 90 02/02/18 08:00 Respiratory Rate 20 02/02/18 08:00 Blood Pressure 126/72 02/02/18 08:00 O2 Sat by Pulse Oximetry (%) 100 02/01/18 21:50 GENERAL: The patient is awake, alert, and fully oriented, in no acute distress. HEAD: Normal with no signs of trauma. EYES: PERRL, extraocular movements intact, sclera anicteric, conjunctiva clear. ENT: Ears normal, oropharynx clear without exudates, moist mucous membranes. NECK: Trachea midline, full range of motion, supple. LUNGS: positive for VATs , diminished breath sounds bl R>L . HEART: Regular rate and rhythm ABDOMEN: Soft, NT,ND, normoactive bowel sounds, no guarding, no rebound, no hepatosplenomegaly, no masses. EXTREMITIES: no edema. NEUROLOGICAL: Normal speech, gait not observed. CBCD WBC 9.1 K/mm3 (4.0-10.0) 02/02/18 05:30 RBC 3.93 M/mm3 (4.00-5.60) L 02/02/18 05:30 Hgb 7.9 GM/dL (11.7-16.9) L 02/02/18 05:30 Hct 26.0 % (35.4-49) L D 02/02/18 05:30 MCV 66.1 fl (80-96) L 02/02/18 05:30 MCHC 30.4 g/dl (32.0-35.9) L 02/02/18 05:30 RDW 17.8 % (11.9-15.9) H 02/02/18 05:30 Plt Count 496 K/MM3 (134-434) H D 02/02/18 05:30 MPV 7.2 fl (7.5-11.1) L 02/02/18 05:30 CMP Sodium 136 mmol/L (136-145) 02/02/18 05:30 Potassium 4.8 mmol/L (3.5-5.1) 02/02/18 05:30 Chloride 101 mmol/L (98-107) 02/02/18 05:30 Carbon Dioxide 25 mmol/L (21-32) 02/02/18 05:30 Anion Gap 9 MMOL/L (8-16) 02/02/18 05:30 BUN 19 mg/dL (7-18) H 02/02/18 05:30 Creatinine 1.0 mg/dL (0.55-1.3) 02/02/18 05:30 Creat Clearance w eGFR > 60 (>60) 02/02/18 05:30 Random Glucose 122 mg/dL (74-106) H 02/02/18 05:30 Calcium 8.3 mg/dL (8.5-10.1) L 02/02/18 05:30 Total Bilirubin 0.4 mg/dL (0.2-1) 02/02/18 05:30 AST 21 U/L (15-37) 02/02/18 05:30 ALT 21 U/L (13-61) 02/02/18 05:30 Alkaline Phosphatase 114 U/L (45-117) 02/02/18 05:30 Total Protein 6.8 g/dl (6.4-8.2) 02/02/18 05:30 Albumin 2.0 g/dl (3.4-5.0) L 02/02/18 05:30 CARDIAC ENZYMES Troponin I < 0.03 ng/ml (0.00-0.06) 01/17/18 12:03 Current Medications Generic Name Dose Route Start Last Admin Trade Name Freq PRN Reason Stop Dose Admin Acetaminophen 1,000 mg 02/02/18 08:00 Ofirmev Injection - IVPB 02/03/18 02:01 Q6H [facility] Albuterol/Ipratropium 1 amp 01/26/18 08:00 02/02/18 08:10 Duoneb - NEB 1 amp RTID [facility] Administration Amlodipine Besylate 5 mg 01/26/18 10:00 02/01/18 09:52 Norvasc - PO Not Given DAILY [facility] Atorvastatin Calcium 20 mg 01/25/18 22:00 02/01/18 21:59 Lipitor - PO Not Given HS [facility] Budesonide/Formoterol Fumarate 2 puff 01/25/18 22:00 02/01/18 09:57 Symbicort 80/4.5mcg - IH 2 puff BID [facility] Administration Folic Acid 1 mg 01/26/18 10:00 02/01/18 09:52 Folic Acid - PO Not Given DAILY [facility] Guaifenesin 1,200 mg 01/25/18 22:00 02/01/18 09:52 Mucinex - PO Not Given BID [facility] Heparin Sodium (Porcine) 5,000 unit 02/01/18 22:00 02/02/18 07:15 Heparin - SQ 5,000 unit TID [facility] Administration Piperacillin Sod/Tazobactam 100 mls @ 200 mls/hr 01/26/18 02:00 02/02/18 01: 08 Sod 4.5 gm/ Sodium Chloride IVPB 200 mls/hr Q8H-IV [facility] Administration Protocol Sodium Chloride 1,000 mls @ 100 mls/hr 02/01/18 20:30 02/02/18 01:09 Normal Saline - IV 100 mls/hr ASDIR [facility] Administration Insulin Aspart 1 vial 01/25/18 22:00 02/02/18 08:02 Novolog Vial Sliding Scale - SQ 2 units ACHS [facility] Administration Protocol Insulin Detemir 5 units 01/27/18 09:00 02/01/18 08:10 Levemir Vial SQ Not Given DAILY@0800 [facility] Ramipril 5 mg 01/26/18 10:00 02/01/18 09:52 Altace - PO Not Given DAILY [facility] Ranitidine HCl 150 mg 01/25/18 22:00 02/01/18 09:52 Zantac - PO Not Given BID [facility] Tramadol HCl 50 mg 02/02/18 07:49 Ultram - PO Q4H PRN PAIN LEVEL 6-10 Home Medications Medication Instructions Recorded Acetaminophen 650 mg PO Q6H PRN 01/17/18 Albuterol Sulfate Inhaler - 2 inh PO TID 01/17/18 [Ventolin Hfa Inhaler -] Amlodipine Besylate [Norvasc -] 5 mg PO DAILY 01/17/18 Atorvastatin Ca [Lipitor] 20 mg PO DAILY 01/17/18 Azithromycin 250 mg PO DAILY 01/17/18 Cyanocobalamin (Vitamin B-12) 1,000 mcg PO DAILY 01/17/18 [Vitamin B-12] Fluticasone Propionate 2 inh IH BID 01/17/18 Folic Acid 1 mg PO DAILY 01/17/18 Ibuprofen [Motrin -] 400 mg PO TID PRN 01/17/18 Ramipril [Altace] 5 mg PO DAILY 01/17/18 CT chest: opacification with associated expansion of right mid lobe c/w infiltrate with several small internal bronchograms; moderate left pleural effusion; trace left pleural effusion; several enlarged mediastinal lymph nodes. -Chest ultrasound: limited ultrasound of the right chest reveal the presence of a right pleural effusion and a density which could represent a mass or atelectasis. -chest xray: 01/31. chest tube stable. decrease in right fluid. -surgical pathology report: pleural fluid no malignant cells identified, acute inflammatory infiltrate comprised of numerous neutrophils, rare lymphocytes. ASSESSMENT/PLAN: Patient is a 57 year old male with a significant past medical history of hypertension, diabetes, chronic right middle lobe collapse, and asthma. He presents to the ED on 01/17/2018 with c/o of fever, non-productive cough with right-sided pleuritic chest pain, admitted for severe sepsis secondary to community acquired pneumonia. # s/p sepsis /CAP/bronchial asthma. 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 overall <100 of straw colored drain output since insertion. repeat blood cultures negative to date. On Zosyn, duonebs and supplemental oxygen prn. ID /pulm/thoracic surgeon on the case. s/p VAT procedure today .s/p flexible bronchoscopy with Bx/bronchial washings and brushings/ R. VATs, pleural Bx and culture and s/p intercostal block . # Thrombocytosis. hematology following. # Transaminitis, resolved # Electrolyte imbalance improved ;Hyponatremia. daily cmp # Diabetes/hyperglycemia. Novolog SS, monitor BGMs. # Hypertension, controlled on amlodopoine # HLD On Lipitor DVT Px: bilateral SCDs, patient ambulatory, heparin tid full code Visit type - Emergency Visit Emergency Visit: Yes ED Registration Date: 01/17/18 Care time: The patient presented to the Emergency Department on the above date and was hospitalized for further evaluation of their emergent condition. - New Patient This patient is new to me today: Yes Date on this admission: 02/02/18 - Critical Care Critical Care patient: No - Discharge Referral Referred to [facility] Med P.C.: No
--- NOTE | 2018-02-02 09:39 | OPR ---
Patient Name: Toya Barbour MR#: [id number] INPATIENT PROCEDURE DATE OF ADMISSION: 01/17/2018 Procedure Date: 02/01/2018 Preoperative Diagnosis: 1. Chronic RML collapse; 2. HTN; 3. NIDDM; 4. Asthma. Postoperative Diagnosis: RML syndrome; empyema Procedure: 1. Flexible bronchoscopy with biopsy 2. Bronchial washings and brushings; 3. Right VATS pneumolysis; 4. Mini-thoracotomy; 5. Pleural biopsy and culture; 6. Intercostal nerve block. Indication: as above Surgeon(s): Dr. David Turpin Co-Surgeon: Dr. Angel Almaraz Anesthesia: General Endotracheal Wound Classification: Clean Antibiotic Prophylaxis: Cefazolin Findings: 1. Bronchoscopy: right middle lobe with obstruction secondary to nodule ( broncholith versus carcinoid); 2. Thoracoscopy: Extensive adhesions from upper and lower lobe to mediastinum anteriorly (heart), lower lobe to diaphragm and posterior mesdiastinum, both lobes to chest wall, middle lobe to anterior mediastinum; serous fluid in chest ; consolidated RLL; soft RML; pleura inflamed without lesions. Specimens Sent: RML biopsy of bronchial lesion; washings; pleura. Complications: none Drains / Tubes / Catheters: 1 chest tube Hardware / Implants: n/a Blood / Fluid Losses: 100cc Blood / Fluids Administered: per anesthesia Post-Operative Condition: stable, extubated to PACU Indications: This patient is a 57 year-old male never-smoker from [place] with chronic RML collapse who presented with signs of pneumonia. He was referred from Dr. Espinal and Dr. Lopez for possible VATS and biopsy. He was explained the risks, benefits, and alternatives of a bronchoscopy and thoracoscopy, wedge resection, and agreed and understood. Details of Procedure: The patient was taken into the operating room and placed supine on the table. He was monitored with pulse oximetry and blood pressure monitoring. A bronchoscopy was performed to view the airway and for operative planning. The RML findings were consistent with partial obstruction although I was able to intubate it with the bronchoscope and perform biopsies and cultures. Lung isolation was then achieved. He was then positioned in the left lateral decubitus position and lung isolation was confirmed. The chest was prepared and draped in sterile fashion. The first port was placed in the 4th intercostal space. There were abundant adhesions to the chest wall, anterior, and posterior mediastinum. We then placed another port in the 7th space and a third in the 5th. A mini-thoracotomy retractor was placed in the 4th space due to the patients body habitus and his small rib spaces. We lysed all of the adhesions to perform a pleural biopsy. The pneumolysis took almost 1 hour . We then continued mobilization to place a chest tube. This was secured. The lung was expanded again. Wounds were closed with absorbable sutures and kathie after expanding the lung. Sterile dressings were placed. The patient was then awakened and extubated. He tolerated the procedure well and was taken to the recovery room. I was present postoperatively and after discharge he will follow up with me as an outpatient. Dr. Almaraz was present as a cosurgeon due to the lack of available residents and the complex nature of this procedure.
[2018-02-02] MEDS: BUDESONIDE/FORMETEROL FUMARATE 80/4.5 mcg INHALER IH SCH ×3 (10:03→22:36)
[2018-02-02] MEDS: RAMIPRIL 5 MG CAPSULE (FP) PO SCH (10:03)
[2018-02-02] MEDS: FOLIC ACID 1 MG TABLET (FP) PO SCH (10:03)
[2018-02-02] MEDS: ACETAMINOPHEN 1000 MG/100 ML VIAL (NON FORMULARY) IVPB SCH ×4 (10:03→21:05)
[2018-02-02] MEDS: amLODIPine BESYLATE 5 MG TABLET (FP) PO SCH (10:05)
[2018-02-02] MEDS: RANITIDINE HCL 150 MG TABLET (FP) PO SCH ×2 (10:06→21:06)
--- NOTE | 2018-02-02 10:07 | PN ---
Progress Note, Physician History of Present Illness: POD #1 VATS Awake, alert Seated in bed No acute distress No c/o fever/ chills Low grade fever WBC WNL Cultures pending - Current Medication List Current Medications: Active Medications Acetaminophen (Ofirmev Injection -) 1,000 mg IVPB Q6H [facility] Stop: 02/03/18 02:01 Albuterol/Ipratropium (Duoneb -) 1 amp NEB RTID [facility] Last Admin: 02/02/18 08:10 Dose: 1 amp Amlodipine Besylate (Norvasc -) 5 mg PO DAILY [facility] Last Admin: 02/01/18 09:52 Dose: Not Given Atorvastatin Calcium (Lipitor -) 20 mg PO HS [facility] Last Admin: 02/01/18 21:59 Dose: Not Given Budesonide/Formoterol Fumarate (Symbicort 80/4.5mcg -) 2 puff IH BID [facility] Last Admin: 02/01/18 09:57 Dose: 2 puff Folic Acid (Folic Acid -) 1 mg PO DAILY [facility] Last Admin: 02/01/18 09:52 Dose: Not Given Guaifenesin (Mucinex -) 1,200 mg PO BID [facility] Last Admin: 02/01/18 09:52 Dose: Not Given Heparin Sodium (Porcine) (Heparin -) 5,000 unit SQ TID [facility] Last Admin: 02/02/18 07:15 Dose: 5,000 unit Piperacillin Sod/Tazobactam (Sod 4.5 gm/ Sodium Chloride) 100 mls @ 200 mls/hr IVPB Q8H-IV [facility]; Protocol Last Admin: 02/02/18 01:08 Dose: 200 mls/hr Sodium Chloride (Normal Saline -) 1,000 mls @ 100 mls/hr IV ASDIR [facility] Last Admin: 02/02/18 01:09 Dose: 100 mls/hr Insulin Aspart (Novolog Vial Sliding Scale -) 1 vial SQ ACHS [facility]; Protocol Last Admin: 02/02/18 08:02 Dose: 2 units Insulin Detemir (Levemir Vial) 5 units SQ DAILY@0800 [facility] Last Admin: 02/01/18 08:10 Dose: Not Given Ramipril (Altace -) 5 mg PO DAILY [facility] Last Admin: 02/01/18 09:52 Dose: Not Given Ranitidine HCl (Zantac -) 150 mg PO BID [facility] Last Admin: 02/01/18 09:52 Dose: Not Given Tramadol HCl (Ultram -) 50 mg PO Q4H PRN PRN Reason: PAIN LEVEL 6-10 - Objective Vital Signs: Vital Signs Temperature 98.4 F 02/02/18 06:00 Pulse Rate 90 02/02/18 08:00 Respiratory Rate 20 02/02/18 08:00 Blood Pressure 126/72 02/02/18 08:00 O2 Sat by Pulse Oximetry (%) 100 02/01/18 21:50 Constitutional: Yes: No Distress Eyes: Yes: Conjunctiva Clear Cardiovascular: Yes: Regular Rate and Rhythm, S1, S2 Respiratory: Yes: Diminished, Other (Chest tube R chest) Gastrointestinal: Yes: Normal Bowel Sounds, Soft. No: Tenderness Edema: No Labs: CBC, BMP 02/02/18 05:30 02/02/18 05:30 INR, PTT INR 1.35 (0.83-1.09) H 02/01/18 09:20 Assessment/Plan POD # 1 VATS RML consolidation/ atelectatic lung ? post obstructive Exudative parapneumonic effusion R/O empyema Cultures pending Continue empiric zosyn
[2018-02-02] MEDS: INSULIN (LEVEMIR) 100 UNITS/ML UNITS SQ SCH (11:29)
--- NOTE | 2018-02-02 12:12 | PN ---
Teaching Attending Note Name of Resident: Franicsco Little ATTENDING PHYSICIAN STATEMENT I saw and evaluated the patient. I reviewed the resident's note and discussed the case with the resident. I agree with the resident's findings and plan as documented. SUBJECTIVE: Denies shortness of breath. Minimal nonproductive cough. No air leak. Intake & Output 01/30/18 01/31/18 02/01/18 02/02/18 23:59 23:59 23:59 23:59 Intake Total 9457 804 1978 1181 Output Total 6 0 1403 610 Balance 1534 300 597 571 Last Vital Signs Temp Pulse Resp BP Pulse Ox 99.0 F 93 H 18 107/65 100 02/02/18 10:00 02/02/18 12:00 02/02/18 12:00 02/02/18 12:00 02/02/18 09:00 Active Medications Acetaminophen (Ofirmev Injection -) 1,000 mg IVPB Q6H [facility] Stop: 02/03/18 02:01 Last Admin: 02/02/18 10:03 Dose: 1,000 mg Albuterol/Ipratropium (Duoneb -) 1 amp NEB RTID [facility] Last Admin: 02/02/18 08:10 Dose: 1 amp Amlodipine Besylate (Norvasc -) 5 mg PO DAILY [facility] Last Admin: 02/02/18 10:05 Dose: 5 mg Atorvastatin Calcium (Lipitor -) 20 mg PO HS [facility] Last Admin: 02/01/18 21:59 Dose: Not Given Budesonide/Formoterol Fumarate (Symbicort 80/4.5mcg -) 2 puff IH BID [facility] Last Admin: 02/02/18 10:07 Dose: 2 puff Folic Acid (Folic Acid -) 1 mg PO DAILY [facility] Last Admin: 02/02/18 10:03 Dose: 1 mg Guaifenesin (Mucinex -) 1,200 mg PO BID [facility] Last Admin: 02/01/18 09:52 Dose: Not Given Heparin Sodium (Porcine) (Heparin -) 5,000 unit SQ TID [facility] Last Admin: 02/02/18 07:15 Dose: 5,000 unit Piperacillin Sod/Tazobactam (Sod 4.5 gm/ Sodium Chloride) 100 mls @ 200 mls/hr IVPB Q8H-IV [facility]; Protocol Last Admin: 02/02/18 10:02 Dose: 200 mls/hr Sodium Chloride (Normal Saline -) 1,000 mls @ 100 mls/hr IV ASDIR [facility] Last Admin: 02/02/18 01:09 Dose: 100 mls/hr Insulin Aspart (Novolog Vial Sliding Scale -) 1 vial SQ ACHS [facility]; Protocol Last Admin: 02/02/18 11:30 Dose: 2 units Insulin Detemir (Levemir Vial) 5 units SQ DAILY@0800 [facility] Last Admin: 02/02/18 11:29 Dose: Not Given Ramipril (Altace -) 5 mg PO DAILY [facility] Last Admin: 02/02/18 10:03 Dose: 5 mg Ranitidine HCl (Zantac -) 150 mg PO BID [facility] Last Admin: 02/02/18 10:06 Dose: 150 mg Tramadol HCl (Ultram -) 50 mg PO Q4H PRN PRN Reason: PAIN LEVEL 6-10 Gen: NAD at rest Heart: RRR Lung: decreased breath sounds at the bases Abd: soft, nontender Ext: no edema Chest tube: serous fluid, no air leak Laboratory Results - last 24 hr 02/01/18 02/02/18 02/02/18 21:20 05:30 05:30 WBC 9.1 RBC 3.93 L Hgb 7.9 L Hct 26.0 L D MCV 66.1 L MCH 20.1 L MCHC 30.4 L RDW 17.8 H Plt Count 496 H D MPV 7.2 L Absolute Neuts (auto) 6.8 Neutrophils % 74.4 Lymphocytes % 14.5 D Monocytes % 8.8 Eosinophils % 1.7 Basophils % 0.6 Nucleated RBC % 0 Sodium 136 Potassium 4.8 Chloride 101 Carbon Dioxide 25 Anion Gap 9 BUN 19 H Creatinine 1.0 Creat Clearance w eGFR > 60 POC Glucometer 199 Random Glucose 122 H Calcium 8.3 L Magnesium 2.4 Total Bilirubin 0.4 AST 21 ALT 21 Alkaline Phosphatase 114 Total Protein 6.8 Albumin 2.0 L 02/02/18 07:56 WBC RBC Hgb Hct MCV MCH MCHC RDW Plt Count MPV Absolute Neuts (auto) Neutrophils % Lymphocytes % Monocytes % Eosinophils % Basophils % Nucleated RBC % Sodium Potassium Chloride Carbon Dioxide Anion Gap BUN Creatinine Creat Clearance w eGFR POC Glucometer [phone] Random Glucose Calcium Magnesium Total Bilirubin AST ALT Alkaline Phosphatase Total Protein Albumin A/P POD #1 Right VATs/bronchoscopy, right middle lobe obstruction: (?) Carcinoid (? ) Broncholith Extensive adhesions noted Consolidated RLL Inflamed Pleura Asthma HTN Exudative Right Pleural Effusion Daily CXR Encourage Incentive Spirometry O2 as needed VTE prophylaxis BD TX OOB to chair 4W/4S Dr Herrera
--- NOTE | 2018-02-02 12:41 | PN ---
Physical Exam: SUBJECTIVE: Patient seen and examined in the ICU. POD #1 Right VATs/ bronchoscopy. Denies cp, SOB. Minimal nonproductive cough. No air leak. OBJECTIVE: Vital Signs Period Temp Pulse Resp BP Sys/Baum Pulse Ox Last 24 Hr 98.1 F-100.0 F 86-99 14-21 107-150/51-106 94-100 Gen: NAD at rest HEENT: NCAT, MMM Heart: RRR S1 S2 no m/r/g Lung: decreased breath sounds at the bases Abd: soft, NTND +BS Ext: no edema skin: intact Neuro: sensation strength grossly intact. AO x 3 Chest tube: serous fluid, no air leak Laboratory Results - last 24 hr 02/01/18 02/02/18 02/02/18 21:20 05:30 05:30 WBC 9.1 RBC 3.93 L Hgb 7.9 L Hct 26.0 L D MCV 66.1 L MCH 20.1 L MCHC 30.4 L RDW 17.8 H Plt Count 496 H D MPV 7.2 L Absolute Neuts (auto) 6.8 Neutrophils % 74.4 Lymphocytes % 14.5 D Monocytes % 8.8 Eosinophils % 1.7 Basophils % 0.6 Nucleated RBC % 0 Sodium 136 Potassium 4.8 Chloride 101 Carbon Dioxide 25 Anion Gap 9 BUN 19 H Creatinine 1.0 Creat Clearance w eGFR > 60 POC Glucometer 199 Random Glucose 122 H Calcium 8.3 L Magnesium 2.4 Total Bilirubin 0.4 AST 21 ALT 21 Alkaline Phosphatase 114 Total Protein 6.8 Albumin 2.0 L 02/02/18 07:56 WBC RBC Hgb Hct MCV MCH MCHC RDW Plt Count MPV Absolute Neuts (auto) Neutrophils % Lymphocytes % Monocytes % Eosinophils % Basophils % Nucleated RBC % Sodium Potassium Chloride Carbon Dioxide Anion Gap BUN Creatinine Creat Clearance w eGFR POC Glucometer [phone] Random Glucose Calcium Magnesium Total Bilirubin AST ALT Alkaline Phosphatase Total Protein Albumin Active Medications Generic Name Dose Route Start Last Admin Trade Name Freq PRN Reason Stop Dose Admin Acetaminophen 1,000 mg 02/02/18 08:00 02/02/18 10:03 Ofirmev Injection - IVPB 02/03/18 02:01 1,000 mg Q6H [facility] Administration Albuterol/Ipratropium 1 amp 01/26/18 08:00 02/02/18 08:10 Duoneb - NEB 1 amp RTID [facility] Administration Amlodipine Besylate 5 mg 01/26/18 10:00 02/02/18 10:05 Norvasc - PO 5 mg DAILY [facility] Administration Atorvastatin Calcium 20 mg 01/25/18 22:00 02/01/18 21:59 Lipitor - PO Not Given HS [facility] Budesonide/Formoterol Fumarate 2 puff 01/25/18 22:00 02/02/18 10:07 Symbicort 80/4.5mcg - IH 2 puff BID [facility] Administration Folic Acid 1 mg 01/26/18 10:00 02/02/18 10:03 Folic Acid - PO 1 mg DAILY [facility] Administration Guaifenesin 1,200 mg 01/25/18 22:00 02/01/18 09:52 Mucinex - PO Not Given BID [facility] Heparin Sodium (Porcine) 5,000 unit 02/01/18 22:00 02/02/18 07:15 Heparin - SQ 5,000 unit TID [facility] Administration Piperacillin Sod/Tazobactam 100 mls @ 200 mls/hr 01/26/18 02:00 02/02/18 10: 02 Sod 4.5 gm/ Sodium Chloride IVPB 200 mls/hr Q8H-IV [facility] Administration Protocol Sodium Chloride 1,000 mls @ 100 mls/hr 02/01/18 20:30 02/02/18 01:09 Normal Saline - IV 100 mls/hr ASDIR [facility] Administration Insulin Aspart 1 vial 01/25/18 22:00 02/02/18 11:30 Novolog Vial Sliding Scale - SQ 2 units ACHS [facility] Administration Protocol Insulin Detemir 5 units 01/27/18 09:00 02/02/18 11:29 Levemir Vial SQ Not Given DAILY@0800 [facility] Ramipril 5 mg 01/26/18 10:00 02/02/18 10:03 Altace - PO 5 mg DAILY [facility] Administration Ranitidine HCl 150 mg 01/25/18 22:00 02/02/18 10:06 Zantac - PO 150 mg BID [facility] Administration Tramadol HCl 50 mg 02/02/18 07:49 Ultram - PO Q4H PRN PAIN LEVEL 6-10 ASSESSMENT/PLAN: 57 year-old man with a PMH significant for HTN, NIDDM, HLD, chronic right middle lobe collapse, recurrent pneumonia, and asthma. Admitted for severe sepsis secondary to community acquired pneumonia. Now POD #1 Right VATs/ bronchoscopy, right middle lobe obstruction: (?) Carcinoid (?) Broncholith NEURO intact AO x 3 cardiac maintain MAP > 65 cardiac monitoring home bp meds Lipitor PULM/ID POD #1 Right VATs/bronchoscopy, right middle lobe obstruction: (?) Carcinoid (? ) Broncholith Consolidated RLL Inflamed Pleura Asthma Exudative Right Pleural Effusion -Daily CXR -Incentive Spirometry -maintain O2 > 90% -abx per primary team/ID -pain ctl -duonebs/symbicort OOB to chair pulmonary consult -f/u biopsy/cx RENAL moniotr Cr ENDO bgm levemir/ISS GI no active issues FEN NS 100cc replete prn DM diet ppx SQH zantac dispo pt is stable and can be transferred to tele. further care per primary team/PCP Visit type - Emergency Visit Emergency Visit: Yes ED Registration Date: 01/17/18 Care time: The patient presented to the Emergency Department on the above date and was hospitalized for further evaluation of their emergent condition. - New Patient This patient is new to me today: Yes Date on this admission: 02/02/18 - Critical Care Critical Care patient: Yes Total Critical Care Time (in minutes): 39 Critical Care Statement: The care of this patient involved high complexity decision making to prevent further life threatening deterioration of the patient 's condition and/or to evaluate & treat vital organ system(s) failure or risk of failure.
--- NOTE | 2018-02-02 13:48 | PN ---
Progress Note (short form) - Note Progress Note: Thoracic Surgery POD#1 Doing well. Transferred from ICU. VSS Chest tube serosanguineous No air-leak. F/U cx's and bx's. Chest tube stays until Thursday at least. I will be out of town on Thursday and covered by Dr. Prisca Flores. Problem List - Problems (1) Community acquired bacterial pneumonia Code(s): J15.9 - UNSPECIFIED BACTERIAL PNEUMONIA (2) Sepsis due to pneumonia Code(s): J18.9 - PNEUMONIA, UNSPECIFIED ORGANISM; A41.9 - SEPSIS, UNSPECIFIED ORGANISM
[2018-02-02] MEDS: guaiFENesin 600 MG TABLET.ER (FP) PO SCH ×2 (14:18→21:06)
[2018-02-02] MEDS: SODIUM CHLORIDE 1,000 ML IV SCH (17:24)
[2018-02-02] MEDS ORDERED: PT OWN MED DRAWER 7, Y5N ONE (20:46)
[2018-02-02] MEDS: ATORVASTATIN CA 20 MG TABLET (FP) PO SCH (21:06)
[2018-02-02] MEDS ORDERED: ACETAMINOPHEN 325 MG TABLET (FP) PO PRN (21:14)
[2018-02-03] MEDS ORDERED: PIPERACILLIN/TAZOBACTAM 4.5 GM VIAL IVPB ONE ×3 (01:36→17:03)
[2018-02-03] MEDS ORDERED: SODIUM CHLORIDE 100 ML IVPB ONE ×3 (01:36→17:04)
[2018-02-03] MEDS: PIPERACILLIN/TAZOB 4.5 GM 4.5 GM in SODIUM CHLORIDE 100 ML IVPB SCH ×3 (01:39→17:16)
[2018-02-03] MEDS ORDERED: PT OWN MED DRAWER 7, Y5N ONE ×3 (04:18→21:40)
[2018-02-03] MEDS: SODIUM CHLORIDE 1,000 ML IV SCH ×2 (05:54→17:16)
[2018-02-03] MEDS: HEPARIN NA (PORCINE) 5,000 UNITS/ML 1ML VIAL SQ SCH ×3 (06:26→21:51)
[2018-02-03] MEDS: INSULIN SLIDING SCALE (NOVOLOG) 1 VIAL SQ SCH ×4 (06:28→21:50)
[2018-02-03 06:52] LABS: BASO % 0.6 % (0-2.0); EOS % 3.5 % (0-4.5); HEMATOCRIT 24.1 % (35.4-49); HEMOGLOBIN 7.5 GM/dL (11.7-16.9); LYMPH % 13.8 % (8-40); MCH 20.4 pg (25.7-33.7); MCHC 31.1 g/dl (32.0-35.9); MEAN CELL VOLUME 65.6 fl (80-96); MEAN PLT VOLUME 7.2 fl (7.5-11.1); MONO % 8.6 % (3.8-10.2); NEUT % 73.5 % (42.8-82.8); PLATELET COUNT 426 K/MM3 (134-434); RBC 3.68 M/mm3 (4.00-5.60); RDW 18.1 % (11.9-15.9); WHITE BLOOD COUNT 8.6 K/mm3 (4.0-10.0)
--- NOTE | 2018-02-03 07:42 | PN ---
Progress Note (short form) - Note Progress Note: POD #2 Alert. Sitting up in bed. No acute events over past 24 hours per RN notes. He hasa been OOB and ambulating to bathroom unassisted. Using his incentive spirometer as directed. Denies n/v/f/c, CP, SOB, MCARTHUR Last Vital Signs Temp Pulse Resp BP Pulse Ox 98.4 F 90 20 121/69 94 L 02/03/ 06:38 02/03/18 06:38 02/03/18 06:38 02/03/18 06:38 02/02/18 20:38 PE Gen: nad Chest: CxT on lwcs, no air leak, minimal serosanguinous output LE: soft. nt bilat Problem List - Problems (1) Empyema of lung Assessment/Plan: POD #2 s/p flexible bronchoscopy w/ bx, right VATs/pneumolysis, mini-thoracotomy , pleural bx & culture, intercostal nerve block Cont CxT to LWCS Monitor output Incentive spirometer Pulmonary toileting Pain management PRN CXR Tylenol 650mg for fever > 100.3F Cont Zosyn as per ID f/u cultures Dr. Turpin away 02/03/18 and will be covered by Dr. Prisca Flores Code(s): J86.9 - PYOTHORAX WITHOUT FISTULA
[2018-02-03] MEDS: ALBUTEROL SO4 2.5/IPRATROPIUM 0.5 INH SOL 3 ML VIAL.NEB. NEB SCH ×3 (07:55→20:20)
[2018-02-03 08:09] LABS: ALK PHOS 117 U/L (45-117); ANION GAP 11 MMOL/L (8-16); BILIRUBIN,TOTAL 0.3 mg/dL (0.2-1); BLOOD UREA NITROGEN 13 mg/dL (7-18); CALCIUM 7.9 mg/dL (8.5-10.1); CHLORIDE 102 mmol/L (98-107); CO2 25 mmol/L (21-32); CREATININE 0.9 mg/dL (0.55-1.3); GLUCOSE,RANDOM 110 mg/dL (74-106); MAGNESIUM 2.4 mg/dL (1.8-2.4); PHOSPHOROUS 3.6 mg/dL (2.5-4.9); POTASSIUM 4.3 mmol/L (3.5-5.1); SGOT/AST 17 U/L (15-37); SGPT/ALT 17 U/L (13-61); SODIUM 138 mmol/L (136-145); TOT PROT 6.6 g/dl (6.4-8.2)
[2018-02-03] MEDS: INSULIN (LEVEMIR) 100 UNITS/ML UNITS SQ SCH (08:33)
[2018-02-03] MEDS: RAMIPRIL 5 MG CAPSULE (FP) PO SCH (09:28)
[2018-02-03] MEDS: RANITIDINE HCL 150 MG TABLET (FP) PO SCH ×2 (09:30→21:50)
[2018-02-03] MEDS: FOLIC ACID 1 MG TABLET (FP) PO SCH (09:30)
[2018-02-03] MEDS: BUDESONIDE/FORMETEROL FUMARATE 80/4.5 mcg INHALER IH SCH ×2 (09:31→21:50)
[2018-02-03] MEDS: amLODIPine BESYLATE 5 MG TABLET (FP) PO SCH (09:31)
[2018-02-03] MEDS: guaiFENesin 600 MG TABLET.ER (FP) PO SCH ×2 (09:31→21:49)
[2018-02-03] MEDS: traMADol HCL 50 MG TABLET PO PRN ×3 (09:34→21:50)
[2018-02-03 11:57] LABS: ANISOCYTOSIS 1+; MACROCYTOSIS 0; PLATELET ESTIMATE NORMAL
--- NOTE | 2018-02-03 12:42 | PN ---
Progress Note, Physician History of Present Illness: PULMONARY ALERT,OOB-CHAIR,-RESP DISTRESS,-SOB,S/P R VAT - Current Medication List Current Medications: Active Medications Acetaminophen (Tylenol -) 650 mg PO Q6H PRN PRN Reason: PAIN LEVEL 4 - 6 Last Admin: 02/02/18 22:37 Dose: 650 mg Albuterol/Ipratropium (Duoneb -) 1 amp NEB RTID [facility] Last Admin: 02/03/18 07:55 Dose: 1 amp Amlodipine Besylate (Norvasc -) 5 mg PO DAILY [facility] Last Admin: 02/03/18 09:31 Dose: 5 mg Atorvastatin Calcium (Lipitor -) 20 mg PO HS [facility] Last Admin: 02/02/18 21:06 Dose: 20 mg Budesonide/Formoterol Fumarate (Symbicort 80/4.5mcg -) 2 puff IH BID [facility] Last Admin: 02/03/18 09:31 Dose: 2 puff Folic Acid (Folic Acid -) 1 mg PO DAILY [facility] Last Admin: 02/03/18 09:30 Dose: 1 mg Guaifenesin (Mucinex -) 1,200 mg PO BID [facility] Last Admin: 02/03/18 09:31 Dose: 1,200 mg Heparin Sodium (Porcine) (Heparin -) 5,000 unit SQ TID [facility] Last Admin: 02/03/18 06:26 Dose: 5,000 unit Piperacillin Sod/Tazobactam (Sod 4.5 gm/ Sodium Chloride) 100 mls @ 200 mls/hr IVPB Q8H-IV [facility]; Protocol Last Admin: 02/03/18 09:29 Dose: 200 mls/hr Sodium Chloride (Normal Saline -) 1,000 mls @ 100 mls/hr IV ASDIR [facility] Last Admin: 02/03/18 05:54 Dose: 100 mls/hr Insulin Aspart (Novolog Vial Sliding Scale -) 1 vial SQ ACHS [facility]; Protocol Last Admin: 02/03/18 06:28 Dose: Not Given Insulin Detemir (Levemir Vial) 5 units SQ DAILY@0800 [facility] Last Admin: 02/03/18 08:33 Dose: 5 units Ramipril (Altace -) 5 mg PO DAILY [facility] Last Admin: 02/03/18 09:28 Dose: 5 mg Ranitidine HCl (Zantac -) 150 mg PO BID [facility] Last Admin: 02/03/18 09:30 Dose: 150 mg Tramadol HCl (Ultram -) 50 mg PO Q4H PRN PRN Reason: PAIN LEVEL 6-10 Last Admin: 02/03/18 09:34 Dose: 50 mg - Objective Vital Signs: Vital Signs Temperature 98.4 F 02/03/18 08:48 Pulse Rate 96 H 02/03/18 08:48 Respiratory Rate 16 02/03/18 08:48 Blood Pressure 121/59 L 02/03/18 08:48 O2 Sat by Pulse Oximetry (%) 94 L 02/02/18 20:38 Constitutional: Yes: Well Nourished, Calm Eyes: Yes: WNL HENT: Yes: WNL Neck: Yes: WNL Cardiovascular: Yes: Regular Rate and Rhythm, S1, S2 Respiratory: Yes: Diminished Gastrointestinal: Yes: Normal Bowel Sounds, Soft Extremities: Yes: WNL Edema: No Labs: CBC, BMP 02/03/18 06:00 02/03/18 06:00 INR, PTT INR 1.35 (0.83-1.09) H 02/01/18 09:20 - ....Imaging Chest X-ray: Report Reviewed, Image Reviewed Assessment/Plan Problem List - Problems (1) Diabetes Code(s): E11.9 - TYPE 2 DIABETES MELLITUS WITHOUT COMPLICATIONS (2) Community acquired bacterial pneumonia Code(s): J15.9 - UNSPECIFIED BACTERIAL PNEUMONIA (3) Sepsis due to pneumonia Code(s): J18.9 - PNEUMONIA, UNSPECIFIED ORGANISM; A41.9 - SEPSIS, UNSPECIFIED ORGANISM (4) Anemia Code(s): D64.9 - ANEMIA, UNSPECIFIED (5) Lactic acid blood increased Code(s): R79.89 - OTHER SPECIFIED ABNORMAL FINDINGS OF BLOOD CHEMISTRY (6) Hypoalbuminemia Code(s): E88.09 - OTH DISORDERS OF PLASMA-PROTEIN METABOLISM, NEC (7) Hypomagnesemia Code(s): E83.42 - HYPOMAGNESEMIA (8) Hypocalcemia Code(s): E83.51 - HYPOCALCEMIA Assessment/Plan S/P R VAT RML SYNDROME PLEURAL EFFUSION EXUDATE OBESITY ASTHMA LIKELY SLEEP APNEA PLAN ABX as per ID O2 NEEDED INHALED BRONCHODILATORS SLEEP STUDIES OUTPATIENT DR DE JESUS
--- NOTE | 2018-02-03 12:43 | PN ---
Progress Note (short form) - Note Progress Note: Thoracic Surgery POD#2 Doing well. Needs to ambulate. VSS/AF WBC wnl CT to water seal prior to dc. Cultures still negative. Pleural bx pending. Will need outpatient f/u. Problem List - Problems (1) Community acquired bacterial pneumonia Code(s): J15.9 - UNSPECIFIED BACTERIAL PNEUMONIA (2) Sepsis due to pneumonia Code(s): J18.9 - PNEUMONIA, UNSPECIFIED ORGANISM; A41.9 - SEPSIS, UNSPECIFIED ORGANISM
--- NOTE | 2018-02-03 18:08 | PATH ---
Cytology Non-Gynecological Report Patient Name: ETHAN CARY [facility]. Rec. #: [id number] /Age/Gender: 1960 (Age: 57) / M Account: [id number] Location: 4 PEDS/ADOL Taken: 02/02/2018 Received: 02/02/2018 Reported: 02/03/2018 Physicians: David Turpin M.D. Specimen(s) Received A: BRONCHIAL WASHINGS B: BRONCHIAL BRUSHINGS Clinical History Pneumonia Final Diagnosis A. LUNG, RIGHT MEDIAL LOBE, BRONCHIAL WASHINGS: SATISFACTORY FOR EVALUATION. NO MALIGNANT CELLS IDENTIFIED. ACUTE INFLAMMATORY CELLS, ALVEOLAR MACROPHAGES AND RARE REACTIVE EPITHELIAL CELLS PRESENT. B. LUNG, RIGHT MEDIAL LOBE, BRONCHIAL BRUSHINGS: SATISFACTORY FOR EVALUATION. NO MALIGNANT CELLS IDENTIFIED. ACUTE INFLAMMATORY EXUDATE, BENIGN RESPIRATORY CELLS, AND BACTERIAL COLONIES PPRESENT, SUGGEST CLINICAL CORRELATION WITH MICROBIOLOGIC CULTURE STUDY RESULTS. Comment: Also see cocurrent pathology report [id number]. Electronically Signed Lindsay Lopez M.D. Gross Description A. Approximately 40cc of bloody fluid received fixed in 95% alcohol. Two cytofunnels and one cellblock prepared. B. Approximately 40cc of bloody fluid received in 95% alcohol with brush. Two cytofunnels and one cellblock prepared.
--- NOTE | 2018-02-03 18:17 | PATH ---
Surgical Pathology Report Patient Name: ETHAN CARY [facility]. Rec. #: [id number] /Age/Gender: 1960 (Age: 57) / M Account: [id number] Location: [facility] PEDS/ADOL Taken: 02/01/2018 Received: 02/02/2018 Reported: 02/03/2018 Physicians: Abraham Kaur F.N.P. Specimen(s) Received A: RIGHT MEDIAL LOBE BIOPSY B: PLUERAL BX Clinical History Community acquired bacterial pneumonia Final Diagnosis A. RIGHT LUNG, MEDIAL LOBE, BIOPSY: BLOOD WITH ACUTE INFLAMMATORY CELLS. SCANTY BENIGN REACTIVE EPITHELIAL CELLS ARE PRESENT. B. PLEURAL BIOPSY: PLEURAL TISSUE SHOWING ACUTE AND CHRONIC INFLAMMATION WITH NEUTROPHIL, LYMPHOPLASMACYTIC INFILTRATE, FOCAL HEMORRHAGE AND FIBRINOUS EXUDATE. Electronically Signed Lindsay Lopez M.D. Gross Description A. Received in formalin labeled "right medial lobe biopsy," is a 0.2 cm in length x 0.1 cm in diameter schmitz-brown, cylindrical soft tissue fragment. The specimen is submitted in toto in one cassette. B. Received in formalin labeled "pleural biopsy," is a 1.5 x 0.7 x 0.1 cm schmitz brown portion of soft tissue. The specimen is trisected and entirely submitted in one cassette. /02/02/201802/02/2018
[2018-02-03] MEDS: ATORVASTATIN CA 20 MG TABLET (FP) PO SCH (21:49)
[2018-02-04] MEDS ORDERED: PIPERACILLIN/TAZOBACTAM 4.5 GM VIAL IVPB ONE ×3 (01:36→17:37)
[2018-02-04] MEDS ORDERED: SODIUM CHLORIDE 100 ML IVPB ONE ×3 (01:37→17:37)
[2018-02-04] MEDS ORDERED: PT OWN MED DRAWER 7, Y5N ONE ×3 (01:39→22:27)
[2018-02-04] MEDS: PIPERACILLIN/TAZOB 4.5 GM 4.5 GM in SODIUM CHLORIDE 100 ML IVPB SCH ×3 (02:08→18:21)
[2018-02-04] MEDS: traMADol HCL 50 MG TABLET PO PRN ×3 (03:02→21:20)
[2018-02-04] MEDS: HEPARIN NA (PORCINE) 5,000 UNITS/ML 1ML VIAL SQ SCH ×3 (06:23→21:20)
[2018-02-04] MEDS: SODIUM CHLORIDE 1,000 ML IV SCH ×2 (06:24→15:34)
[2018-02-04] MEDS: INSULIN SLIDING SCALE (NOVOLOG) 1 VIAL SQ SCH ×4 (06:25→21:22)
[2018-02-04] MEDS: ALBUTEROL SO4 2.5/IPRATROPIUM 0.5 INH SOL 3 ML VIAL.NEB. NEB SCH ×3 (07:30→20:59)
[2018-02-04] MEDS: INSULIN (LEVEMIR) 100 UNITS/ML UNITS SQ SCH (08:22)
[2018-02-04] MEDS ORDERED: HYDROCORTISONE 0.5% TOPICAL CREAM 30 GM TUBE TP PRN (09:36)
[2018-02-04] MEDS: RANITIDINE HCL 150 MG TABLET (FP) PO SCH ×2 (10:18→21:20)
[2018-02-04] MEDS: RAMIPRIL 5 MG CAPSULE (FP) PO SCH (10:18)
[2018-02-04] MEDS: guaiFENesin 600 MG TABLET.ER (FP) PO SCH ×2 (10:18→21:21)
[2018-02-04] MEDS: amLODIPine BESYLATE 5 MG TABLET (FP) PO SCH (10:21)
[2018-02-04] MEDS: BUDESONIDE/FORMETEROL FUMARATE 80/4.5 mcg INHALER IH SCH ×2 (10:21→21:25)
[2018-02-04] MEDS: FOLIC ACID 1 MG TABLET (FP) PO SCH (10:21)
--- NOTE | 2018-02-04 11:02 | PN ---
Progress Note, Physician History of Present Illness: pulmonary alert,no distress,-sob,-cp - Current Medication List Current Medications: Active Medications Acetaminophen (Tylenol -) 650 mg PO Q6H PRN PRN Reason: PAIN LEVEL 4 - 6 Last Admin: 02/02/18 22:37 Dose: 650 mg Albuterol/Ipratropium (Duoneb -) 1 amp NEB RTID [facility] Last Admin: 02/03/18 20:20 Dose: 1 amp Amlodipine Besylate (Norvasc -) 5 mg PO DAILY [facility] Last Admin: 02/04/18 10:21 Dose: 5 mg Atorvastatin Calcium (Lipitor -) 20 mg PO HS [facility] Last Admin: 02/03/18 21:49 Dose: 20 mg Budesonide/Formoterol Fumarate (Symbicort 80/4.5mcg -) 2 puff IH BID [facility] Last Admin: 02/04/18 10:21 Dose: 2 puff Folic Acid (Folic Acid -) 1 mg PO DAILY [facility] Last Admin: 02/04/18 10:21 Dose: 1 mg Guaifenesin (Mucinex -) 1,200 mg PO BID [facility] Last Admin: 02/04/18 10:18 Dose: 1,200 mg Heparin Sodium (Porcine) (Heparin -) 5,000 unit SQ TID [facility] Last Admin: 02/04/18 06:23 Dose: 5,000 unit Hydrocortisone (Hytone 0.5% Cream -) 1 applic TP BID PRN PRN Reason: FOR ITCHING Piperacillin Sod/Tazobactam (Sod 4.5 gm/ Sodium Chloride) 100 mls @ 200 mls/hr IVPB Q8H-IV [facility]; Protocol Last Admin: 02/04/18 10:20 Dose: 200 mls/hr Sodium Chloride (Normal Saline -) 1,000 mls @ 100 mls/hr IV ASDIR [facility] Last Admin: 02/04/18 06:24 Dose: 100 mls/hr Insulin Aspart (Novolog Vial Sliding Scale -) 1 vial SQ ACHS [facility]; Protocol Last Admin: 02/04/18 06:25 Dose: Not Given Insulin Detemir (Levemir Vial) 5 units SQ DAILY@0800 [facility] Last Admin: 02/04/18 08:22 Dose: 5 units Ramipril (Altace -) 5 mg PO DAILY [facility] Last Admin: 02/04/18 10:18 Dose: 5 mg Ranitidine HCl (Zantac -) 150 mg PO BID [facility] Last Admin: 02/04/18 10:18 Dose: 150 mg Tramadol HCl (Ultram -) 50 mg PO Q4H PRN PRN Reason: PAIN LEVEL 6-10 Last Admin: 02/04/18 10:18 Dose: 50 mg - Objective Vital Signs: Vital Signs Temperature 98.1 F 02/04/18 06:00 Pulse Rate 86 02/04/18 06:00 Respiratory Rate 18 02/04/18 06:00 Blood Pressure 126/68 02/04/18 06:00 O2 Sat by Pulse Oximetry (%) 95 02/03/18 21:00 Constitutional: Yes: Well Nourished, Calm Eyes: Yes: WNL HENT: Yes: WNL Neck: Yes: WNL Cardiovascular: Yes: Regular Rate and Rhythm, S1, S2 Respiratory: Yes: Diminished Gastrointestinal: Yes: Normal Bowel Sounds, Soft Extremities: Yes: WNL Edema: No Labs: CBC, BMP Assessment/Plan Problem List - Problems (1) Diabetes Code(s): E11.9 - TYPE 2 DIABETES MELLITUS WITHOUT COMPLICATIONS (2) Community acquired bacterial pneumonia Code(s): J15.9 - UNSPECIFIED BACTERIAL PNEUMONIA (3) Sepsis due to pneumonia Code(s): J18.9 - PNEUMONIA, UNSPECIFIED ORGANISM; A41.9 - SEPSIS, UNSPECIFIED ORGANISM (4) Anemia Code(s): D64.9 - ANEMIA, UNSPECIFIED (5) Lactic acid blood increased Code(s): R79.89 - OTHER SPECIFIED ABNORMAL FINDINGS OF BLOOD CHEMISTRY (6) Hypoalbuminemia Code(s): E88.09 - OTH DISORDERS OF PLASMA-PROTEIN METABOLISM, NEC (7) Hypomagnesemia Code(s): E83.42 - HYPOMAGNESEMIA (8) Hypocalcemia Code(s): E83.51 - HYPOCALCEMIA Assessment/Plan S/P R VAT RML SYNDROME PLEURAL EFFUSION EXUDATE OBESITY ASTHMA LIKELY SLEEP APNEA PLAN ABX as per ID O2 NEEDED INHALED BRONCHODILATORS SLEEP STUDIES OUTPATIENT DR DE JESUS
--- NOTE | 2018-02-04 14:06 | PN ---
Physical Exam: SUBJECTIVE: Patient seen and examined. He reports he is feeling well, eating but no BM since surgery. C/o itchy rash to lower back OBJECTIVE: Vital Signs Period Temp Pulse Resp BP Sys/Baum Pulse Ox Last 24 Hr 98.1 F-98.4 F 69-100 18-20 117-126/64-70 95 GENERAL: The patient is awake, alert, and fully oriented, in no acute distress. HEAD: Normal with no signs of trauma. EYES: PERRL, extraocular movements intact, sclera anicteric, conjunctiva clear. No ptosis. ENT: Ears normal, nares patent, oropharynx clear without exudates, moist mucous membranes. NECK: Trachea midline, full range of motion, supple. LUNGS: right lung s/p pig tail placement, sero-sang drainage from chest tube lungs CTA HEART: Regular rate and rhythm ABDOMEN: Soft, nontender, nondistended, normoactive bowel sounds, no guarding, no rebound, no hepatosplenomegaly, no masses. EXTREMITIES: no edema. NEUROLOGICAL: Normal speech, gait not observed. Laboratory Results - last 24 hr 02/02/18 02/03/18 02/03/18 11:28 16:30 21:47 POC Glucometer 173.11775 132 125 02/04/18 02/04/18 06:10 11:45 POC Glucometer 109 169 Active Medications Generic Name Dose Route Start Last Admin Trade Name Freq PRN Reason Stop Dose Admin Acetaminophen 650 mg 02/02/18 21:14 02/02/18 22:37 Tylenol - PO 650 mg Q6H PRN Administration PAIN LEVEL 4 - 6 Albuterol/Ipratropium 1 amp 02/02/18 20:00 02/04/18 07:30 Duoneb - NEB 1 amp RTID [facility] Administration Amlodipine Besylate 5 mg 02/03/18 10:00 02/04/18 10:21 Norvasc - PO 5 mg DAILY [facility] Administration Atorvastatin Calcium 20 mg 02/02/18 22:00 02/03/18 21:49 Lipitor - PO 20 mg HS [facility] Administration Budesonide/Formoterol Fumarate 2 puff 02/02/18 22:00 02/04/18 10:21 Symbicort 80/4.5mcg - IH 2 puff BID [facility] Administration Folic Acid 1 mg 02/03/18 10:00 02/04/18 10:21 Folic Acid - PO 1 mg DAILY [facility] Administration Guaifenesin 1,200 mg 02/02/18 22:00 02/04/18 10:18 Mucinex - PO 1,200 mg BID [facility] Administration Heparin Sodium (Porcine) 5,000 unit 02/02/18 22:00 02/04/18 06:23 Heparin - SQ 5,000 unit TID [facility] Administration Hydrocortisone 1 applic 02/04/18 09:36 Hytone 0.5% Cream - TP BID PRN FOR ITCHING Piperacillin Sod/Tazobactam 100 mls @ 200 mls/hr 02/02/18 18:00 02/04/18 10: 20 Sod 4.5 gm/ Sodium Chloride IVPB 200 mls/hr Q8H-IV [facility] Administration Protocol Sodium Chloride 1,000 mls @ 100 mls/hr 02/02/18 15:11 02/04/18 06:24 Normal Saline - IV 100 mls/hr ASDIR [facility] Administration Insulin Aspart 1 vial 02/02/18 16:30 02/04/18 12:05 Novolog Vial Sliding Scale - SQ 2 units ACHS [facility] Administration Protocol Insulin Detemir 5 units 02/03/18 08:00 02/04/18 08:22 Levemir Vial SQ 5 units DAILY@0800 [facility] Administration Ramipril 5 mg 02/03/18 10:00 02/04/18 10:18 Altace - PO 5 mg DAILY [facility] Administration Ranitidine HCl 150 mg 02/02/18 22:00 02/04/18 10:18 Zantac - PO 150 mg BID [facility] Administration Tramadol HCl 50 mg 02/02/18 15:11 02/04/18 10:18 Ultram - PO 50 mg Q4H PRN Administration PAIN LEVEL 6-10 ASSESSMENT/PLAN: 57 year old male with a PMH significant for HTN, HLD, diabetes, chronic right middle lobe collapse, and asthma. He presented to the ED on 01/17/2018 with fever, non-productive cough with right-sided pleuritic chest pain. Admitted for severe sepsis secondary to community acquired pneumonia. Imaging: - CT chest: opacification with associated expansion of right mid lobe c/w infiltrate with several small internal bronchograms; moderate left pleural effusion; trace left pleural effusion; several enlarged mediastinal lymph nodes. - Chest ultrasound: limited ultrasound of the right chest reveal the presence of a right pleural effusion and a density which could represent a mass or atelectasis. bronchoscopy may be helpful for further evaluation. - Chest xray: 01/31. chest tube stable. decrease in right fluid. - Surgical pathology report: pleural fluid no malignant cells identified, acute inflammatory infiltrate comprised of numerous neutrophils, rare lymphocytes. Severe sepsis/CAP - Chronic right middle lobe collapse with pleural drainage on 01/26/18 chest tube placement - POD #3 s/p flexible bronchoscopy with biopsy, right VATs/pneumolysis, mini- thoracotomy, pleural biopsy & culture, intercostal nerve block - Leukocytosis improving, afebrile - Mucinex BID - On Zosyn, duonebs and supplemental oxygen PRN - Remove chest tube and change to water seal prior to dc per Dr. Guo. - Cultures still negative. Pleural biopsy pending. - ID following - Followed by mine exploration engineer Dr. Lopez - Recommends OP sleep study Asthma - Symbicort BID - Nebs PRN Diabetes - Levemir 5U qhs - Novolog SS - Monitor BGMs Hypertension - Amlodopoine 5 mg PO qday - Ramipril 5 mg PO qday Hyperlipidemia - Atorvastatin 20 mg PO QHS FEN - NS @ 100cc/hr - monitor electrolyte - Diabetic diet Prophylaxis - DVT: SCDs, Heparin SQ - GI: Ranitidine 150 mg PO BID Disp: Patient requires further inpatient monitoring FULL CODE Visit type - Emergency Visit Emergency Visit: No - New Patient This patient is new to me today: Yes Date on this admission: 02/04/18 - Critical Care Critical Care patient: No
[2018-02-04] MEDS: BACITRACIN 15 GM TUBE TOPICAL OINTMENT TP SCH (21:21)
[2018-02-04] MEDS: ATORVASTATIN CA 20 MG TABLET (FP) PO SCH (21:21)
[2018-02-05] MEDS ORDERED: PIPERACILLIN/TAZOBACTAM 4.5 GM VIAL IVPB ONE ×3 (01:09→17:06)
[2018-02-05] MEDS ORDERED: SODIUM CHLORIDE 100 ML IVPB ONE ×3 (01:10→17:06)
[2018-02-05] MEDS: traMADol HCL 50 MG TABLET PO PRN ×2 (01:23→09:33)
[2018-02-05] MEDS: PIPERACILLIN/TAZOB 4.5 GM 4.5 GM in SODIUM CHLORIDE 100 ML IVPB SCH ×3 (01:23→17:12)
[2018-02-05] MEDS: SODIUM CHLORIDE 1,000 ML IV SCH ×3 (01:28→22:35)
[2018-02-05] MEDS: HEPARIN NA (PORCINE) 5,000 UNITS/ML 1ML VIAL SQ SCH ×3 (06:02→22:12)
[2018-02-05] MEDS: INSULIN SLIDING SCALE (NOVOLOG) 1 VIAL SQ SCH ×4 (06:02→22:31)
[2018-02-05] MEDS ORDERED: INSULIN (LEVEMIR) 100 UNITS/ML UNITS SQ ONE (06:48)
[2018-02-05] MEDS ORDERED: INSULIN SLIDING SCALE (NOVOLOG) 1 VIAL SQ ONE ×2 (06:48→11:39)
[2018-02-05 06:57] LABS: HEMATOCRIT 24.7 % (35.4-49); HEMOGLOBIN 7.7 GM/dL (11.7-16.9); MCH 20.3 pg (25.7-33.7); MCHC 31.2 g/dl (32.0-35.9); MEAN CELL VOLUME 65.2 fl (80-96); MEAN PLT VOLUME 7.1 fl (7.5-11.1); PLATELET COUNT 515 K/MM3 (134-434); RBC 3.79 M/mm3 (4.00-5.60)
[2018-02-05 07:28] LABS: ANION GAP 7 MMOL/L (8-16); BLOOD UREA NITROGEN 11 mg/dL (7-18); CALCIUM 8.3 mg/dL (8.5-10.1); CHLORIDE 102 mmol/L (98-107); CO2 27 mmol/L (21-32); CREATININE 0.8 mg/dL (0.55-1.3); GLUCOSE,RANDOM 102 mg/dL (74-106); MAGNESIUM 2.3 mg/dL (1.8-2.4); POTASSIUM 4.6 mmol/L (3.5-5.1); SODIUM 136 mmol/L (136-145)
[2018-02-05] MEDS: ALBUTEROL SO4 2.5/IPRATROPIUM 0.5 INH SOL 3 ML VIAL.NEB. NEB SCH ×3 (08:16→21:05)
[2018-02-05] MEDS ORDERED: PT OWN MED DRAWER 7, Y5N ONE ×3 (09:28→22:43)
[2018-02-05] MEDS: INSULIN (LEVEMIR) 100 UNITS/ML UNITS SQ SCH (09:31)
[2018-02-05] MEDS: guaiFENesin 600 MG TABLET.ER (FP) PO SCH ×2 (09:32→22:10)
[2018-02-05] MEDS: BUDESONIDE/FORMETEROL FUMARATE 80/4.5 mcg INHALER IH SCH ×2 (09:32→22:11)
[2018-02-05] MEDS: FOLIC ACID 1 MG TABLET (FP) PO SCH (09:33)
[2018-02-05] MEDS: RANITIDINE HCL 150 MG TABLET (FP) PO SCH ×2 (09:33→22:13)
[2018-02-05] MEDS: amLODIPine BESYLATE 5 MG TABLET (FP) PO SCH (09:33)
[2018-02-05] MEDS: BACITRACIN 15 GM TUBE TOPICAL OINTMENT TP SCH ×2 (09:34→22:13)
[2018-02-05] MEDS: RAMIPRIL 5 MG CAPSULE (FP) PO SCH (09:34)
--- NOTE | 2018-02-05 11:20 | PN ---
Physical Exam: SUBJECTIVE: Patient seen and examined. he reports feeling well, no chest pain, SOB, n/v/d. He had some pain at his chest tube entry site for which he got PRN tramadol to good effect. 30cc output from chest tube yesterday, plan is for chest tube to be removed today. OBJECTIVE: Vital Signs Period Temp Pulse Resp BP Sys/Baum Pulse Ox Last 24 Hr 98.0 F-98.4 F 90-107 18-20 119-132/68-73 95-97 GENERAL: The patient is awake, alert, and fully oriented, in no acute distress. HEAD: Normal with no signs of trauma. EYES: PERRL, extraocular movements intact, sclera anicteric, conjunctiva clear. No ptosis. ENT: Ears normal, nares patent, oropharynx clear without exudates, moist mucous membranes. NECK: Trachea midline, full range of motion, supple. LUNGS: right lung s/p pig tail placement, sero-sang drainage from chest tube, surrounding site tissue without erythema warmth or edema, lungs CTA HEART: Regular rate and rhythm ABDOMEN: Soft, nontender, nondistended, normoactive bowel sounds, no guarding, no rebound, no hepatosplenomegaly, no masses. EXTREMITIES: no edema. NEUROLOGICAL: Normal speech, gait not observed. Laboratory Results - last 24 hr 02/04/18 02/04/18 02/04/18 11:45 17:03 21:19 WBC RBC Hgb Hct MCV MCH MCHC RDW Plt Count MPV Sodium Potassium Chloride Carbon Dioxide Anion Gap BUN Creatinine Creat Clearance w eGFR POC Glucometer 169 113 119 Random Glucose Calcium Magnesium 02/05/18 02/05/18 02/05/18 06:00 06:00 06:01 WBC 7.0 RBC 3.79 L Hgb 7.7 L Hct 24.7 L MCV 65.2 L MCH 20.3 L MCHC 31.2 L RDW 18.0 H Plt Count 515 H D MPV 7.1 L Sodium 136 Potassium 4.6 Chloride 102 Carbon Dioxide 27 Anion Gap 7 L BUN 11 Creatinine 0.8 Creat Clearance w eGFR > 60 POC Glucometer 112 Random Glucose 102 Calcium 8.3 L Magnesium 2.3 Active Medications Generic Name Dose Route Start Last Admin Trade Name Freq PRN Reason Stop Dose Admin Acetaminophen 650 mg 02/02/18 21:14 02/02/18 22:37 Tylenol - PO 650 mg Q6H PRN Administration PAIN LEVEL 4 - 6 Albuterol/Ipratropium 1 amp 02/02/18 20:00 02/05/18 08:16 Duoneb - NEB 1 amp RTID [facility] Administration Amlodipine Besylate 5 mg 02/03/18 10:00 02/05/18 09:33 Norvasc - PO 5 mg DAILY [facility] Administration Atorvastatin Calcium 20 mg 02/02/18 22:00 02/04/18 21:21 Lipitor - PO 20 mg HS [facility] Administration Bacitracin 1 applic 02/04/18 22:00 02/05/18 09:34 Bacitracin - TP 1 applic BID [facility] Administration Budesonide/Formoterol Fumarate 2 puff 02/02/18 22:00 02/05/18 09:32 Symbicort 80/4.5mcg - IH 2 puff BID [facility] Administration Folic Acid 1 mg 02/03/18 10:00 02/05/18 09:33 Folic Acid - PO 1 mg DAILY [facility] Administration Guaifenesin 1,200 mg 02/02/18 22:00 02/05/18 09:32 Mucinex - PO 1,200 mg BID [facility] Administration Heparin Sodium (Porcine) 5,000 unit 02/02/18 22:00 02/05/18 06:02 Heparin - SQ 5,000 unit TID [facility] Administration Hydrocortisone 1 applic 02/04/18 09:36 02/05/18 09:32 Hytone 0.5% Cream - TP 1 applic BID PRN Administration FOR ITCHING Piperacillin Sod/Tazobactam 100 mls @ 200 mls/hr 02/02/18 18:00 02/05/18 09: 31 Sod 4.5 gm/ Sodium Chloride IVPB 200 mls/hr Q8H-IV [facility] Administration Protocol Sodium Chloride 1,000 mls @ 100 mls/hr 02/02/18 15:11 02/05/18 01:28 Normal Saline - IV 100 mls/hr ASDIR [facility] Administration Insulin Aspart 1 vial 02/02/18 16:30 02/05/18 06:02 Novolog Vial Sliding Scale - SQ Not Given ACHS [facility] Protocol Insulin Detemir 5 units 02/03/18 08:00 02/05/18 09:31 Levemir Vial SQ 5 units DAILY@0800 [facility] Administration Ramipril 5 mg 02/03/18 10:00 02/05/18 09:34 Altace - PO 5 mg DAILY [facility] Administration Ranitidine HCl 150 mg 02/02/18 22:00 02/05/18 09:33 Zantac - PO 150 mg BID [facility] Administration Tramadol HCl 50 mg 02/02/18 15:11 02/05/18 09:33 Ultram - PO 50 mg Q4H PRN Administration PAIN LEVEL 6-10 ASSESSMENT/PLAN: 57 year old male with a PMH significant for HTN, HLD, diabetes, chronic right middle lobe collapse, and asthma. He presented to the ED on 01/17/2018 with fever, non-productive cough with right-sided pleuritic chest pain. Admitted for severe sepsis secondary to community acquired pneumonia. Imaging: - CT chest: opacification with associated expansion of right mid lobe c/w infiltrate with several small internal bronchograms; moderate left pleural effusion; trace left pleural effusion; several enlarged mediastinal lymph nodes. - Chest ultrasound: limited ultrasound of the right chest reveal the presence of a right pleural effusion and a density which could represent a mass or atelectasis. bronchoscopy may be helpful for further evaluation. - Chest xray: 01/31. chest tube stable. decrease in right fluid. - Surgical pathology report: pleural fluid no malignant cells identified, acute inflammatory infiltrate comprised of numerous neutrophils, rare lymphocytes. Severe sepsis/CAP - Chronic right middle lobe collapse with pleural drainage on 01/26/18 chest tube placement - POD #3 s/p flexible bronchoscopy with biopsy, right VATs/pneumolysis, mini- thoracotomy, pleural biopsy & culture, intercostal nerve block - Leukocytosis resolved, afebrile - CXR from 02/04/18 with no significant change - Mucinex BID - On Zosyn, duonebs and supplemental oxygen PRN - 30 cc output from chest tube - Possible removal change to water seal today per Dr. Guo. - Cultures still negative. Pleural biopsy pending. 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 Lopez - Recommends OP sleep study Asthma - Symbicort BID - Nebs PRN Diabetes - Levemir 5U qhs - Novolog SS - Monitor BGMs Hypertension - Amlodopoine 5 mg PO qday - Ramipril 5 mg PO qday Hyperlipidemia - Atorvastatin 20 mg PO QHS FEN - NS @ 100cc/hr - monitor electrolytes - Diabetic diet Prophylaxis - DVT: SCDs, Heparin SQ - GI: Ranitidine 150 mg PO BID Disp: Patient requires further inpatient monitoring FULL CODE Visit type - Emergency Visit Emergency Visit: No - New Patient This patient is new to me today: No - Critical Care Critical Care patient: No
--- NOTE | 2018-02-05 12:28 | PN ---
Progress Note, Physician History of Present Illness: PULMONARY ALERT,NO DISTRESS,-SOB,MIN CHEST TUBE DRAINAGE - Current Medication List Current Medications: Active Medications Acetaminophen (Tylenol -) 650 mg PO Q6H PRN PRN Reason: PAIN LEVEL 4 - 6 Last Admin: 02/02/18 22:37 Dose: 650 mg Albuterol/Ipratropium (Duoneb -) 1 amp NEB RTID [facility] Last Admin: 02/05/18 08:16 Dose: 1 amp Amlodipine Besylate (Norvasc -) 5 mg PO DAILY [facility] Last Admin: 02/05/18 09:33 Dose: 5 mg Atorvastatin Calcium (Lipitor -) 20 mg PO HS [facility] Last Admin: 02/04/18 21:21 Dose: 20 mg Bacitracin (Bacitracin -) 1 applic TP BID [facility] Last Admin: 02/05/18 09:34 Dose: 1 applic Budesonide/Formoterol Fumarate (Symbicort 80/4.5mcg -) 2 puff IH BID [facility] Last Admin: 02/05/18 09:32 Dose: 2 puff Folic Acid (Folic Acid -) 1 mg PO DAILY [facility] Last Admin: 02/05/18 09:33 Dose: 1 mg Guaifenesin (Mucinex -) 1,200 mg PO BID [facility] Last Admin: 02/05/18 09:32 Dose: 1,200 mg Heparin Sodium (Porcine) (Heparin -) 5,000 unit SQ TID [facility] Last Admin: 02/05/18 06:02 Dose: 5,000 unit Hydrocortisone (Hytone 0.5% Cream -) 1 applic TP BID PRN PRN Reason: FOR ITCHING Last Admin: 02/05/18 09:32 Dose: 1 applic Piperacillin Sod/Tazobactam (Sod 4.5 gm/ Sodium Chloride) 100 mls @ 200 mls/hr IVPB Q8H-IV [facility]; Protocol Last Admin: 02/05/18 09:31 Dose: 200 mls/hr Sodium Chloride (Normal Saline -) 1,000 mls @ 100 mls/hr IV ASDIR [facility] Last Admin: 02/05/18 01:28 Dose: 100 mls/hr Insulin Aspart (Novolog Vial Sliding Scale -) 1 vial SQ ACHS [facility]; Protocol Last Admin: 02/05/18 11:55 Dose: 2 units Insulin Detemir (Levemir Vial) 5 units SQ DAILY@0800 [facility] Last Admin: 02/05/18 09:31 Dose: 5 units Ramipril (Altace -) 5 mg PO DAILY [facility] Last Admin: 02/05/18 09:34 Dose: 5 mg Ranitidine HCl (Zantac -) 150 mg PO BID [facility] Last Admin: 02/05/18 09:33 Dose: 150 mg Tramadol HCl (Ultram -) 50 mg PO Q4H PRN PRN Reason: PAIN LEVEL 6-10 Last Admin: 02/05/18 09:33 Dose: 50 mg - Objective Vital Signs: Vital Signs Temperature 98.3 F 02/05/18 10:00 Pulse Rate 101 H 02/05/18 10:00 Respiratory Rate 18 02/05/18 10:00 Blood Pressure 125/75 02/05/18 10:00 O2 Sat by Pulse Oximetry (%) 97 02/05/18 09:00 Constitutional: Yes: Well Nourished, Calm Eyes: Yes: WNL HENT: Yes: WNL Neck: Yes: WNL Cardiovascular: Yes: Regular Rate and Rhythm, S1, S2 Respiratory: Yes: Diminished Gastrointestinal: Yes: Normal Bowel Sounds, Soft Extremities: Yes: WNL Edema: No Labs: CBC, BMP 02/05/18 06:00 02/05/18 06:00 INR, PTT INR 1.35 (0.83-1.09) H 02/01/18 09:20 Assessment/Plan Problem List - Problems (1) Diabetes Code(s): E11.9 - TYPE 2 DIABETES MELLITUS WITHOUT COMPLICATIONS (2) Community acquired bacterial pneumonia Code(s): J15.9 - UNSPECIFIED BACTERIAL PNEUMONIA (3) Sepsis due to pneumonia Code(s): J18.9 - PNEUMONIA, UNSPECIFIED ORGANISM; A41.9 - SEPSIS, UNSPECIFIED ORGANISM (4) Anemia Code(s): D64.9 - ANEMIA, UNSPECIFIED (5) Lactic acid blood increased Code(s): R79.89 - OTHER SPECIFIED ABNORMAL FINDINGS OF BLOOD CHEMISTRY (6) Hypoalbuminemia Code(s): E88.09 - OTH DISORDERS OF PLASMA-PROTEIN METABOLISM, NEC (7) Hypomagnesemia Code(s): E83.42 - HYPOMAGNESEMIA (8) Hypocalcemia Code(s): E83.51 - HYPOCALCEMIA Assessment/Plan S/P R VAT RML SYNDROME PLEURAL EFFUSION EXUDATE OBESITY ASTHMA LIKELY SLEEP APNEA PLAN ABX as per ID O2 NEEDED INHALED BRONCHODILATORS SLEEP STUDIES OUTPATIENT CHEST TUBE PER THORACIC DR DE JESUS
--- NOTE | 2018-02-05 14:01 | PN ---
Progress Note (short form) - Note Progress Note: Patient seen and examined by me at bedside Offers no complaints and reports feeling well Chest tube still draining Otherwise, no chest pain, palpitations, shortness of breath, fever, chills, nausea, vomiting, abdominal pain. Vital Signs Temperature 98.3 F 02/05/18 10:00 Pulse Rate 101 H 02/05/18 10:00 Respiratory Rate 18 02/05/18 10:00 Blood Pressure 125/75 02/05/18 10:00 O2 Sat by Pulse Oximetry (%) 97 02/05/18 09:00 PHYSICAL EXAM GENERAL: The patient is awake, alert, and fully oriented, in no acute distress. EYES: PERRL, sclera anicteric, conjunctiva clear. ENT: Oropharynx clear without exudates, moist mucous membranes. NECK: (-) adenopathy LUNGS: Serosanguionous drainage from right chest tube, surrounding site tissue without erythema warmth or edema. Rest of Lung CTA HEART: RRR, Normal S1 and S2 ABDOMEN: Soft, nontender, nondistended, normoactive bowel sounds EXTREMITIES: No peripheral edema. NEUROLOGICAL: Normal speech, gait not observed. Laboratory Tests 02/05/18 06:00 02/05/18 06:00 02/05/18 06:00 Calcium 8.3 L Magnesium 2.3 ASSESSMENT AND PLAN: Patient is a 57 year old male who presented with fever, cough right right-sided pleuretic chest pain and was found to be in severe sepsis 2/2 to CAP. Patient is s/p pleural drainage on 01/26/18 from chest tube placement. Problem List: Thrombocytosis Hypochromic Microcytic anemia- Likely thalassemia Severe Sepsis 2/2 CAP S/P Chest Tube placement/VATS DMII HTN HLD Plan: -Thrombocytosis continues to persists and if it continues to persist will order JAK2 to rule out possible ET -Patient initially presented with hypochromic microcytic anemia with low H/H, MCV, and MCHC but normal RBC, consistent with Thalassemia until proven otherwise. Will order Hemoglobin electrophoreses and if Beta thalassemia negative, will order alpha thalassemia by PCR. -Will also order Iron studies, Retic count and LDH -Chest Tube management, per CT surgery and Pulmonary -IV abx, as per ID
--- NOTE | 2018-02-05 14:31 | PN ---
Teaching Attending Note Name of Resident: Maylin Blackman ATTENDING PHYSICIAN STATEMENT I saw and evaluated the patient. I reviewed the resident's note and discussed the case with the resident. I agree with the resident's findings and plan as documented. SUBJECTIVE: Patient seen and examined Clinically stable Still some speech difficulties Last Vital Signs Temp Pulse Resp BP Pulse Ox 98.3 F 101 H 18 125/75 97 02/05/18 10:00 02/05/18 10:00 02/05/18 10:00 02/05/18 10:00 02/05/18 09:00 HEENT: PREM, EOM Intact Oropharynx: No thrush, No mucositis Cor: RSR, No murmurs, No gallops Lungs: Clear to P&A Abd: Soft, Normal bowel sounds, No organomegaly Ext:No significant edema Skin: No rashes, Integument intact CBC, BMP 02/05/18 06:00 02/05/18 06:00 Current Medications Generic Name Dose Route Start Last Admin Trade Name Freq PRN Reason Stop Dose Admin Acetaminophen 650 mg 02/02/18 21:14 02/02/18 22:37 Tylenol - PO 650 mg Q6H PRN Administration PAIN LEVEL 4 - 6 Albuterol/Ipratropium 1 amp 02/02/18 20:00 02/05/18 08:16 Duoneb - NEB 1 amp RTID [facility] Administration Amlodipine Besylate 5 mg 02/03/18 10:00 02/05/18 09:33 Norvasc - PO 5 mg DAILY [facility] Administration Atorvastatin Calcium 20 mg 02/02/18 22:00 02/04/18 21:21 Lipitor - PO 20 mg HS [facility] Administration Bacitracin 1 applic 02/04/18 22:00 02/05/18 09:34 Bacitracin - TP 1 applic BID [facility] Administration Budesonide/Formoterol Fumarate 2 puff 02/02/18 22:00 02/05/18 09:32 Symbicort 80/4.5mcg - IH 2 puff BID [facility] Administration Folic Acid 1 mg 02/03/18 10:00 02/05/18 09:33 Folic Acid - PO 1 mg DAILY [facility] Administration Guaifenesin 1,200 mg 02/02/18 22:00 02/05/18 09:32 Mucinex - PO 1,200 mg BID [facility] Administration Heparin Sodium (Porcine) 5,000 unit 02/02/18 22:00 02/05/18 13:35 Heparin - SQ 5,000 unit TID [facility] Administration Hydrocortisone 1 applic 02/04/18 09:36 02/05/18 09:32 Hytone 0.5% Cream - TP 1 applic BID PRN Administration FOR ITCHING Piperacillin Sod/Tazobactam 100 mls @ 200 mls/hr 02/02/18 18:00 02/05/18 09: 31 Sod 4.5 gm/ Sodium Chloride IVPB 200 mls/hr Q8H-IV [facility] Administration Protocol Sodium Chloride 1,000 mls @ 100 mls/hr 02/02/18 15:11 02/05/18 01:28 Normal Saline - IV 100 mls/hr ASDIR [facility] Administration Insulin Aspart 1 vial 02/02/18 16:30 02/05/18 11:55 Novolog Vial Sliding Scale - SQ 2 units ACHS [facility] Administration Protocol Insulin Detemir 5 units 02/03/18 08:00 02/05/18 09:31 Levemir Vial SQ 5 units DAILY@0800 [facility] Administration Ramipril 5 mg 02/03/18 10:00 02/05/18 09:34 Altace - PO 5 mg DAILY [facility] Administration Ranitidine HCl 150 mg 02/02/18 22:00 02/05/18 09:33 Zantac - PO 150 mg BID [facility] Administration Tramadol HCl 50 mg 02/02/18 15:11 02/05/18 09:33 Ultram - PO 50 mg Q4H PRN Administration PAIN LEVEL 6-10 OBJECTIVE:Impression: Pancytopenia HIT ab - negative Superior saggital sinus thrombosis pneumococcal meningitis Strptococcal bacteremia . HIT ab -negative- to continue to monitor labs. ASSESSMENT AND PLAN:
--- NOTE | 2018-02-05 14:48 | PN ---
Teaching Attending Note Name of Resident: Maylin Blackman ATTENDING PHYSICIAN STATEMENT I saw and evaluated the patient. I reviewed the resident's note and discussed the case with the resident. I agree with the resident's findings and plan as documented. SUBJECTIVE: Patient seen and examined Agree with HbE to r/o thalassemia OBJECTIVE: ASSESSMENT AND PLAN:
--- NOTE | 2018-02-05 15:27 | PN ---
Progress Note (short form) - Note Progress Note: 57yo M s/p VATS and chest tube placement. Pt denies SOB, complains of pain around chest tube. Pt appears to be improving. Dr. Flores, who is covering for Dr. Turpin feels that chest tube can be removed. Chest tube was removed at bedside. A vasoline gauze dressing was placed. Pt tolerated the procedure well. Will need follow up CXR in 2 hours. Problem List - Problems (1) Community acquired bacterial pneumonia Code(s): J15.9 - UNSPECIFIED BACTERIAL PNEUMONIA
[2018-02-05] MEDS: ATORVASTATIN CA 20 MG TABLET (FP) PO SCH (22:12)
[2018-02-06] MEDS ORDERED: PIPERACILLIN/TAZOBACTAM 4.5 GM VIAL IVPB ONE ×3 (01:44→17:12)
[2018-02-06] MEDS ORDERED: SODIUM CHLORIDE 100 ML IVPB ONE ×3 (01:45→17:12)
[2018-02-06] MEDS: PIPERACILLIN/TAZOB 4.5 GM 4.5 GM in SODIUM CHLORIDE 100 ML IVPB SCH ×3 (01:53→17:32)
[2018-02-06] MEDS: HEPARIN NA (PORCINE) 5,000 UNITS/ML 1ML VIAL SQ SCH ×3 (05:47→21:33)
[2018-02-06] MEDS: INSULIN SLIDING SCALE (NOVOLOG) 1 VIAL SQ SCH ×4 (06:14→21:33)
[2018-02-06] MEDS: ALBUTEROL SO4 2.5/IPRATROPIUM 0.5 INH SOL 3 ML VIAL.NEB. NEB SCH ×3 (07:50→20:33)
[2018-02-06] MEDS: INSULIN (LEVEMIR) 100 UNITS/ML UNITS SQ SCH (08:31)
[2018-02-06] MEDS: RAMIPRIL 5 MG CAPSULE (FP) PO SCH (09:31)
[2018-02-06] MEDS: BUDESONIDE/FORMETEROL FUMARATE 80/4.5 mcg INHALER IH SCH ×2 (09:31→21:33)
[2018-02-06] MEDS: RANITIDINE HCL 150 MG TABLET (FP) PO SCH ×2 (09:31→21:34)
[2018-02-06] MEDS: guaiFENesin 600 MG TABLET.ER (FP) PO SCH ×2 (09:31→21:34)
[2018-02-06] MEDS: FOLIC ACID 1 MG TABLET (FP) PO SCH (09:31)
[2018-02-06] MEDS: BACITRACIN 15 GM TUBE TOPICAL OINTMENT TP SCH ×2 (09:32→21:39)
[2018-02-06] MEDS: amLODIPine BESYLATE 5 MG TABLET (FP) PO SCH (09:32)
--- NOTE | 2018-02-06 14:52 | PN ---
Progress Note (short form) - Note Progress Note: PULMONARY Chest tube removed, post removal CXR unremarkable. Vital Signs Period Temp Pulse Resp BP Sys/Baum Pulse Ox Last 24 Hr 97.7 F-98.6 F 92-106 18-22 114-131/64-72 98-98 Gen: NAD at rest Heart: RRR Lung: decreased breath sounds at the bases Abd: soft, nontender Ext: no edema CBC, BMP 02/05/18 06:00 02/05/18 06:00 Active Medications Acetaminophen (Tylenol -) 650 mg PO Q6H PRN PRN Reason: PAIN LEVEL 4 - 6 Last Admin: 02/02/18 22:37 Dose: 650 mg Albuterol/Ipratropium (Duoneb -) 1 amp NEB RTID [facility] Last Admin: 02/06/18 14:23 Dose: 1 amp Amlodipine Besylate (Norvasc -) 5 mg PO DAILY [facility] Last Admin: 02/06/18 09:32 Dose: 5 mg Atorvastatin Calcium (Lipitor -) 20 mg PO HS [facility] Last Admin: 02/05/18 22:12 Dose: 20 mg Bacitracin (Bacitracin -) 1 applic TP BID [facility] Last Admin: 02/06/18 09:32 Dose: 1 applic Budesonide/Formoterol Fumarate (Symbicort 80/4.5mcg -) 2 puff IH BID [facility] Last Admin: 02/06/18 09:31 Dose: 2 puff Folic Acid (Folic Acid -) 1 mg PO DAILY [facility] Last Admin: 02/06/18 09:31 Dose: 1 mg Guaifenesin (Mucinex -) 1,200 mg PO BID [facility] Last Admin: 02/06/18 09:31 Dose: 1,200 mg Heparin Sodium (Porcine) (Heparin -) 5,000 unit SQ TID [facility] Last Admin: 02/06/18 14:29 Dose: 5,000 unit Hydrocortisone (Hytone 0.5% Cream -) 1 applic TP BID PRN PRN Reason: FOR ITCHING Last Admin: 02/05/18 09:32 Dose: 1 applic Piperacillin Sod/Tazobactam (Sod 4.5 gm/ Sodium Chloride) 100 mls @ 200 mls/hr IVPB Q8H-IV [facility]; Protocol Last Admin: 02/06/18 09:30 Dose: 200 mls/hr Insulin Aspart (Novolog Vial Sliding Scale -) 1 vial SQ ACHS [facility]; Protocol Last Admin: 02/06/18 11:54 Dose: 2 units Insulin Detemir (Levemir Vial) 5 units SQ DAILY@0800 [facility] Last Admin: 02/06/18 08:31 Dose: 5 units Ramipril (Altace -) 5 mg PO DAILY [facility] Last Admin: 02/06/18 09:31 Dose: 5 mg Ranitidine HCl (Zantac -) 150 mg PO BID [facility] Last Admin: 02/06/18 09:31 Dose: 150 mg A/P Pneumonia Right Pleural Effusion - Exudate s/p R VATS/Pneumolysis Asthma HTN - complete antibiotics - inhaled bronchodilators - DVT prophylaxis - can be discharged home from pulmonary standpoint
--- NOTE | 2018-02-06 20:20 | PN ---
Physical Exam: SUBJECTIVE: Patient seen and examined. Chest tube removed yesterday. Patient reports he feels well and is ready to go home. No SOB, chest pain, N/V/D. OBJECTIVE: Vital Signs Period Temp Pulse Resp BP Sys/Baum Pulse Ox Last 24 Hr 97.7 F-98.6 F 92-106 18-22 114-131/64-72 98-98 GENERAL: The patient is awake, alert, and fully oriented, in no acute distress. HEAD: Normal with no signs of trauma. EYES: PERRL, extraocular movements intact, sclera anicteric, conjunctiva clear. No ptosis. ENT: Ears normal, nares patent, oropharynx clear without exudates, moist mucous membranes. NECK: Trachea midline, full range of motion, supple. LUNGS: decreased breath sounds to bases, vasoline gauze dressing to right side c /d/i HEART: Regular rate and rhythm ABDOMEN: Soft, nontender, nondistended, normoactive bowel sounds, no guarding, no rebound, no hepatosplenomegaly, no masses. EXTREMITIES: no edema. NEUROLOGICAL: Normal speech, gait not observed. Laboratory Results - last 24 hr 02/05/18 02/06/18 02/06/18 22:29 06:02 11:53 POC Glucometer 120 118 179 02/06/18 16:56 POC Glucometer 112 Active Medications Generic Name Dose Route Start Last Admin Trade Name Freq PRN Reason Stop Dose Admin Acetaminophen 650 mg 02/02/18 21:14 02/02/18 22:37 Tylenol - PO 650 mg Q6H PRN Administration PAIN LEVEL 4 - 6 Albuterol/Ipratropium 1 amp 02/02/18 20:00 02/06/18 14:23 Duoneb - NEB 1 amp RTID [facility] Administration Amlodipine Besylate 5 mg 02/03/18 10:00 02/06/18 09:32 Norvasc - PO 5 mg DAILY [facility] Administration Atorvastatin Calcium 20 mg 02/02/18 22:00 02/05/18 22:12 Lipitor - PO 20 mg HS [facility] Administration Bacitracin 1 applic 02/04/18 22:00 02/06/18 09:32 Bacitracin - TP 1 applic BID [facility] Administration Budesonide/Formoterol Fumarate 2 puff 02/02/18 22:00 02/06/18 09:31 Symbicort 80/4.5mcg - IH 2 puff BID [facility] Administration Folic Acid 1 mg 02/03/18 10:00 02/06/18 09:31 Folic Acid - PO 1 mg DAILY [facility] Administration Guaifenesin 1,200 mg 02/02/18 22:00 02/06/18 09:31 Mucinex - PO 1,200 mg BID [facility] Administration Heparin Sodium (Porcine) 5,000 unit 02/02/18 22:00 02/06/18 14:29 Heparin - SQ 5,000 unit TID [facility] Administration Hydrocortisone 1 applic 02/04/18 09:36 02/05/18 09:32 Hytone 0.5% Cream - TP 1 applic BID PRN Administration FOR ITCHING Piperacillin Sod/Tazobactam 100 mls @ 200 mls/hr 02/02/18 18:00 02/06/18 17: 32 Sod 4.5 gm/ Sodium Chloride IVPB 200 mls/hr Q8H-IV [facility] Administration Protocol Insulin Aspart 1 vial 02/02/18 16:30 02/06/18 16:32 Novolog Vial Sliding Scale - SQ Not Given ACHS [facility] Protocol Insulin Detemir 5 units 02/03/18 08:00 02/06/18 08:31 Levemir Vial SQ 5 units DAILY@0800 [facility] Administration Ramipril 5 mg 02/03/18 10:00 02/06/18 09:31 Altace - PO 5 mg DAILY [facility] Administration Ranitidine HCl 150 mg 02/02/18 22:00 02/06/18 09:31 Zantac - PO 150 mg BID [facility] Administration ASSESSMENT/PLAN: 57 year old male with a PMH significant for HTN, HLD, diabetes, chronic right middle lobe collapse, and asthma. He presented to the ED on 01/17/2018 with fever, non-productive cough with right-sided pleuritic chest pain. Admitted for severe sepsis secondary to community acquired pneumonia. Imaging: - CT chest: opacification with associated expansion of right mid lobe c/w infiltrate with several small internal bronchograms; moderate left pleural effusion; trace left pleural effusion; several enlarged mediastinal lymph nodes. - Chest ultrasound: limited ultrasound of the right chest reveal the presence of a right pleural effusion and a density which could represent a mass or atelectasis. bronchoscopy may be helpful for further evaluation. - Chest xray: 01/31. chest tube stable. decrease in right fluid. - Surgical pathology report: pleural fluid no malignant cells identified, acute inflammatory infiltrate comprised of numerous neutrophils, rare lymphocytes. Severe sepsis/CAP - Chronic right middle lobe collapse with pleural drainage on 01/26/18 chest tube placement - POD #3 s/p flexible bronchoscopy with biopsy, right VATs/pneumolysis, mini- thoracotomy, pleural biopsy & culture, intercostal nerve block - Leukocytosis resolved, afebrile - CXR from 02/04/18 with no significant change - Chest tube removed yesterday - Mucinex BID - On Zosyn, duonebs and supplemental oxygen PRN - Will consult with ID about d/c abx - Cultures still negative. Pleural biopsy pending. - Followed by stopper maker Dr. Lopez - Recommends OP sleep study - Pulm/crit Dr. Rogers has cleared patient for d/c from pulmonary Asthma - Symbicort BID - Nebs PRN Diabetes - Levemir 5U qhs - Novolog SS - Monitor BGMs Hypertension - Amlodopoine 5 mg PO qday - Ramipril 5 mg PO qday Hyperlipidemia - Atorvastatin 20 mg PO QHS FEN - NS @ 100cc/hr - monitor electrolytes - Diabetic diet Prophylaxis - DVT: SCDs, Heparin SQ - GI: Ranitidine 150 mg PO BID Disp: Will confer with ID about stopping abx for d/c FULL CODE Visit type - Emergency Visit Emergency Visit: No - New Patient This patient is new to me today: No - Critical Care Critical Care patient: No
[2018-02-06] MEDS ORDERED: PT OWN MED DRAWER 7, Y5N ONE (21:28)
[2018-02-06] MEDS: ATORVASTATIN CA 20 MG TABLET (FP) PO SCH (21:34)
[2018-02-07] MEDS ORDERED: SODIUM CHLORIDE 100 ML IVPB ONE ×2 (02:28→09:17)
[2018-02-07] MEDS ORDERED: PIPERACILLIN/TAZOBACTAM 4.5 GM VIAL IVPB ONE ×2 (02:28→09:17)
[2018-02-07] MEDS: PIPERACILLIN/TAZOB 4.5 GM 4.5 GM in SODIUM CHLORIDE 100 ML IVPB SCH ×2 (02:47→10:00)
[2018-02-07] MEDS: HEPARIN NA (PORCINE) 5,000 UNITS/ML 1ML VIAL SQ SCH (05:30)
[2018-02-07] MEDS: INSULIN SLIDING SCALE (NOVOLOG) 1 VIAL SQ SCH ×2 (06:03→12:13)
[2018-02-07 06:40] LABS: SERUM IRON SATURATION 5 % (15-55); TOTAL IRON BINDING CAPACITY 312 ug/dL (250-450); UIBC 295 ug/dL (111-343)
[2018-02-07] MEDS: ALBUTEROL SO4 2.5/IPRATROPIUM 0.5 INH SOL 3 ML VIAL.NEB. NEB SCH ×2 (07:35→14:52)
[2018-02-07 07:42] LABS: ANION GAP 8 MMOL/L (8-16); BLOOD UREA NITROGEN 16 mg/dL (7-18); CALCIUM 8.7 mg/dL (8.5-10.1); CHLORIDE 103 mmol/L (98-107); CO2 26 mmol/L (21-32); CREATININE 1.1 mg/dL (0.55-1.3); GLUCOSE,RANDOM 107 mg/dL (74-106); POTASSIUM 4.4 mmol/L (3.5-5.1); SODIUM 137 mmol/L (136-145)
[2018-02-07 07:47] LABS: HEMATOCRIT 25.1 % (35.4-49); HEMOGLOBIN 8.4 GM/dL (11.7-16.9); MCH 21.7 pg (25.7-33.7); MCHC 33.5 g/dl (32.0-35.9); MEAN CELL VOLUME 64.8 fl (80-96); MEAN PLT VOLUME 7.1 fl (7.5-11.1); PLATELET COUNT 640 K/MM3 (134-434); RBC 3.87 M/mm3 (4.00-5.60); RDW 18.2 % (11.9-15.9); WHITE BLOOD COUNT 7.3 K/mm3 (4.0-10.0)
[2018-02-07] MEDS: INSULIN (LEVEMIR) 100 UNITS/ML UNITS SQ SCH (09:36)
[2018-02-07] MEDS: guaiFENesin 600 MG TABLET.ER (FP) PO SCH (09:37)
[2018-02-07] MEDS: FOLIC ACID 1 MG TABLET (FP) PO SCH (09:37)
[2018-02-07] MEDS: amLODIPine BESYLATE 5 MG TABLET (FP) PO SCH (09:37)
[2018-02-07] MEDS: RAMIPRIL 5 MG CAPSULE (FP) PO SCH (09:37)
[2018-02-07] MEDS: RANITIDINE HCL 150 MG TABLET (FP) PO SCH (09:37)
[2018-02-07] MEDS: BUDESONIDE/FORMETEROL FUMARATE 80/4.5 mcg INHALER IH SCH (09:38)
[2018-02-07] MEDS: BACITRACIN 15 GM TUBE TOPICAL OINTMENT TP SCH (09:38)
--- NOTE | 2018-02-07 13:04 | PN ---
Progress Note (short form) - Note Progress Note: Thoracic Surgery: OK to discharge with or without po abx. Problem List - Problems (1) Community acquired bacterial pneumonia Code(s): J15.9 - UNSPECIFIED BACTERIAL PNEUMONIA (2) Sepsis due to pneumonia Code(s): J18.9 - PNEUMONIA, UNSPECIFIED ORGANISM; A41.9 - SEPSIS, UNSPECIFIED ORGANISM
--- NOTE | 2018-02-07 14:00 | PN ---
Progress Note (short form) - Note Progress Note: PULMONARY Denies shortness of breath, cough or fevers. Vital Signs Period Temp Pulse Resp BP Sys/Baum Pulse Ox Last 24 Hr 97.9 F-98.6 F 87-98 18-18 114-122/64-77 97-97 Gen: NAD at rest Heart: RRR Lung: decreased breath sounds at the bases Abd: soft, nontender Ext: no edema CBC, BMP 02/07/18 06:25 02/07/18 06:25 Active Medications Acetaminophen (Tylenol -) 650 mg PO Q6H PRN PRN Reason: PAIN LEVEL 4 - 6 Last Admin: 02/02/18 22:37 Dose: 650 mg Albuterol/Ipratropium (Duoneb -) 1 amp NEB RTID [facility] Last Admin: 02/07/18 07:35 Dose: 1 amp Amlodipine Besylate (Norvasc -) 5 mg PO DAILY [facility] Last Admin: 02/07/18 09:37 Dose: 5 mg Atorvastatin Calcium (Lipitor -) 20 mg PO HS [facility] Last Admin: 02/06/18 21:34 Dose: 20 mg Bacitracin (Bacitracin -) 1 applic TP BID [facility] Last Admin: 02/07/18 09:38 Dose: 1 applic Budesonide/Formoterol Fumarate (Symbicort 80/4.5mcg -) 2 puff IH BID [facility] Last Admin: 02/07/18 09:38 Dose: 2 puff Folic Acid (Folic Acid -) 1 mg PO DAILY [facility] Last Admin: 02/07/18 09:37 Dose: 1 mg Guaifenesin (Mucinex -) 1,200 mg PO BID [facility] Last Admin: 02/07/18 09:37 Dose: 1,200 mg Heparin Sodium (Porcine) (Heparin -) 5,000 unit SQ TID [facility] Last Admin: 02/07/18 05:30 Dose: 5,000 unit Hydrocortisone (Hytone 0.5% Cream -) 1 applic TP BID PRN PRN Reason: FOR ITCHING Last Admin: 02/05/18 09:32 Dose: 1 applic Piperacillin Sod/Tazobactam (Sod 4.5 gm/ Sodium Chloride) 100 mls @ 200 mls/hr IVPB Q8H-IV [facility]; Protocol Last Admin: 02/07/18 10:00 Dose: 200 mls/hr Insulin Aspart (Novolog Vial Sliding Scale -) 1 vial SQ [facility]; Protocol Last Admin: 02/07/18 12:13 Dose: Not Given Insulin Detemir (Levemir Vial) 5 units SQ DAILY@0800 [facility] Last Admin: 02/07/18 09:36 Dose: 5 units Ramipril (Altace -) 5 mg PO DAILY [facility] Last Admin: 02/07/18 09:37 Dose: 5 mg Ranitidine HCl (Zantac -) 150 mg PO BID [facility] Last Admin: 02/07/18 09:37 Dose: 150 mg A/P Pneumonia Right Pleural Effusion - Exudate s/p R VATS/Pneumolysis Asthma HTN - complete antibiotics - inhaled bronchodilators - DVT prophylaxis - can be discharged home from pulmonary standpoint
[2018-02-07 14:17] VITALS: BP 108/61; PULSE 98; TEMP 97.9
--- NOTE | 2018-02-07 17:57 | DS ---
Physical Exam: SUBJECTIVE: Patient seen and examined, he reports feels very well. He has been cleared by pulmonary and thoracic surgery for discharge to home. OBJECTIVE: Vital Signs Period Temp Pulse Resp BP Sys/Baum Pulse Ox Last 24 Hr 97.9 F-98.5 F 87-98 18-18 108-122/61-77 97-97 PHYSICAL EXAM GENERAL: The patient is awake, alert, and fully oriented, in no acute distress. HEAD: Normal with no signs of trauma. EYES: PERRL, extraocular movements intact, sclera anicteric, conjunctiva clear. No ptosis. ENT: Ears normal, nares patent, oropharynx clear without exudates, moist mucous membranes. NECK: Trachea midline, full range of motion, supple. LUNGS: decreased breath sounds to bases, xeroform dressing to right side c/d/i HEART: Regular rate and rhythm ABDOMEN: Soft, nontender, nondistended, normoactive bowel sounds, no guarding, no rebound, no hepatosplenomegaly, no masses. EXTREMITIES: no edema. NEUROLOGICAL: Normal speech, gait not observed. LABS Laboratory Results - last 24 hr 02/05/18 02/06/18 02/07/18 14:50 21:32 05:29 WBC RBC Hgb Hct MCV MCH MCHC RDW Plt Count MPV Sodium Potassium Chloride Carbon Dioxide Anion Gap BUN Creatinine Creat Clearance w eGFR POC Glucometer 132 109 Random Glucose Calcium Iron 17 L TIBC 312 Iron Saturation 5 L Transferrin 250 02/07/18 02/07/18 02/07/18 06:25 06:25 12:11 WBC 7.3 RBC 3.87 L Hgb 8.4 L Hct 25.1 L MCV 64.8 L MCH 21.7 L MCHC 33.5 RDW 18.2 H Plt Count 640 H D MPV 7.1 L Sodium 137 Potassium 4.4 Chloride 103 Carbon Dioxide 26 Anion Gap 8 BUN 16 Creatinine 1.1 Creat Clearance w eGFR > 60 POC Glucometer 140 Random Glucose 107 H Calcium 8.7 Iron TIBC Iron Saturation Transferrin HOSPITAL COURSE: Date of Admission:01/17/18 Date of Discharge: 02/07/18 57 year old male with a PMH significant for HTN, HLD, diabetes, chronic right middle lobe collapse, and asthma. He presented to the ED on 01/17/2018 with fever, non-productive cough with right-sided pleuritic chest pain. Admitted for severe sepsis secondary to community acquired pneumonia. Imaging: - CT chest: opacification with associated expansion of right mid lobe c/w infiltrate with several small internal bronchograms; moderate left pleural effusion; trace left pleural effusion; several enlarged mediastinal lymph nodes. - Chest ultrasound: limited ultrasound of the right chest reveal the presence of a right pleural effusion and a density which could represent a mass or atelectasis. bronchoscopy may be helpful for further evaluation. - Chest xray: 01/31. chest tube stable. decrease in right fluid. - Surgical pathology report: pleural fluid no malignant cells identified, acute inflammatory infiltrate comprised of numerous neutrophils, rare lymphocytes. Severe sepsis/CAP - Leukocytosis resolved, afebrile - Chronic right middle lobe collapse with pleural drainage on 01/26/18 chest tube placement - flexible bronchoscopy with biopsy, right VATs/pneumolysis, mini- thoracotomy, pleural biopsy & culture, intercostal nerve block - Chest tube removed - Change xerofoam dressing qday, call Dr. Turpin's office thursday to make an appointment to remove kathie. - CXR from 02/05/18 with no significant change - Cultures and pleural biopsy negative - Completed course of Zosyn - Clinic Manager Dr. Lopez recommends OP sleep study - Pulm/crit Dr. Rogers has cleared patient for d/c from pulmonary Asthma - Symbicort BID - Nebs PRN Diabetes - Levemir 5U qhs and Novolog SS while inpatient - Resume home PO medications, will f/u with primary Dr. Chaney Hypertension - Amlodopoine 5 mg PO qday - Ramipril 5 mg PO qday Hyperlipidemia - Atorvastatin 20 mg PO QHS Minutes to complete discharge: 30 Discharge Summary Reason For Visit: COMMUNITY AQUIRED BACTERIAL PNEUMONIA Current Active Problems Anemia (Acute) Community acquired bacterial pneumonia (Acute) Diabetes (Acute) Empyema of lung (Acute) Hypoalbuminemia (Acute) Hypocalcemia (Acute) Hypomagnesemia (Acute) Lactic acid blood increased (Acute) Condition: Stable - Instructions Diet, Activity, Other Instructions: Junito Childress were admitted to [facility] from 01/17/18 - 02/07/18 for sepsis caused by 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 You were treated with IV antibiotics and had a Bronchoscopy and thorascopy on 02/02/[address] Turpin to remove the node and drain the fluid. A chest tube was placed and removed 4 days later. Change dressing of wound with Xeroform given to you by the nurse. Please continue your home medications and re-start you diabetes medication with the following new medications: Symbicort inhaler BID for asthma Amlodopine 5 mg once a day for high blood pressure Atorvastatin 20 mg once a day at bedtime for high cholesterol Follow up with the following people: 1. Primary care Dr. Chaney within the week 2. Dr. Guo, surgeon, call his office on Thursday to make a follow up appointment to remove the surgical kathie. Please return to the ER if you have any signs or symptoms of chest pain, shortness of breath, uncontrollable fever, chills, nausea, vomiting, numbness, tingling, or weakness in any part of your body, changes in vision, or slurred speech. Mary Hanna NP [facility] [phone] Referrals: Elli Chaney MD [Staff Physician] - 1 Week Disposition: HOME - Home Medications Comprehensive Discharge Medication List: Ambulatory Orders Acetaminophen 650 mg PO Q6H PRN 01/17/18 Albuterol Sulfate Inhaler - [Ventolin HFA Inhaler -] 2 inh PO TID 01/17/18 Amlodipine Besylate [Norvasc -] 5 mg PO DAILY 01/17/18 Atorvastatin Ca [Lipitor] 20 mg PO DAILY 01/17/18 Cyanocobalamin (Vitamin B-12) [Vitamin B-12] 1,000 mcg PO DAILY 01/17/18 Folic Acid 1 mg PO DAILY 01/17/18 Ibuprofen [Motrin -] 400 mg PO TID PRN 01/17/18 Budesonide/Formeterol Fumarate [SYMBICORT 80/4.5mcg -] 2 puff IH BID 30 Days #1 inhaler 02/07/18 Ramipril [Altace] 5 mg PO DAILY 30 Days #30 capsule 02/07/18 This patient is new to me today: No Emergency Visit: No Critical Care patient: No - Discharge Referral Referred to [facility] No
[2018-02-09 14:13] LABS: HGB SOLUBILITY Negative (Negative); Hgb A 98.1 % (96.4-98.8); Hgb C 0 % (0.0); Hgb F 0 % (0.0-2.0); Hgb S 0 % (0.0)
== END 2018-02-07 18:16 | disposition home health service (06) | DRG 710 ==
LOC: FER 10:50 → FM/S 13:53 → J5S 01-25 19:17 → JICU 02-01 21:50 → J4S 02-02 13:08
PROVIDERS: ADMIT Internal Medicine; ATTEND Nurse Practitioner Adult Health
PROC: 0W9930Z Drainage of Right Pleural Cavity with Drainage Device, Percutaneous Approach (ICD-10-PCS; 2018-01-26)
PROC: 0BBD8ZX Excision of Right Middle Lung Lobe, Via Natural or Artificial Opening Endoscopic, Diagnostic (ICD-10-PCS; principal; 2018-02-02)
PROC: 0BDD8ZX Extraction of Right Middle Lung Lobe, Via Natural or Artificial Opening Endoscopic, Diagnostic (ICD-10-PCS; 2018-02-02)
PROC: 0BN Respiratory System, Release (ICD-10-PCS; 2018-02-02)
PROC: 0BBN0ZX Excision of Right Pleura, Open Approach, Diagnostic (ICD-10-PCS; 2018-02-02)
PROC: 0BPQX0Z Removal of Drainage Device from Pleura, External Approach (ICD-10-PCS; 2018-02-05)
DX: A41.9 Sepsis, unspecified organism (principal); R65.20 Severe sepsis without septic shock; J86.9 Pyothorax without fistula; J90 Pleural effusion, not elsewhere classified; D61.818 Other pancytopenia; E83.42 Hypomagnesemia; E11.65 Type 2 diabetes mellitus with hyperglycemia; J15.9 Unspecified bacterial pneumonia; E83.51 Hypocalcemia; E87.8 Other disorders of electrolyte and fluid balance, not elsewhere classified; E87.1 Hypo-osmolality and hyponatremia; J45.901 Unspecified asthma with (acute) exacerbation; J45.909 Unspecified asthma, uncomplicated; J98.19 Other pulmonary collapse; I10 Essential (primary) hypertension; D64.9 Anemia, unspecified; E66.9 Obesity, unspecified; G47.33 Obstructive sleep apnea (adult) (pediatric); R74.0 Nonspecific elevation of levels of transaminase and lactic acid dehydrogenase [LDH]; D47.3 Essential (hemorrhagic) thrombocythemia; Z68.33 Body mass index [BMI] 33.0-33.9, adult; Z79.84 Long term (current) use of oral hypoglycemic drugs
CPT/HCPCS: 32557; 36415; 71045-TC-FY; 71046-TC-FY; 71250-TC; 71260-TC; 76098-TC-FY; 76604-TC; 76705-TC; 76998-TC; 80048; 80053; 80074; 80076; 81003; 81015; 82150; 82272; 82728; 82945; 82962; 83021; 83036; 83540; 83550; 83605; 83615; 83735; 83986; 84100; 84157; 84466; 84484; 85025; 85027; 85044; 85610; 85660; 86480; 87040; 87070; 87075; 87077; 87086; 87102; 87116; 87205; 87206; 87210; 87389; 87556; 87804; 87899; 88104; 88108; 88305-TC; 89051; 93005; 94640; 94760; 97116-GP; 97161-GP; 99284-25; C1729; C1769; J0131; J1644; J7030

== ENCOUNTER 2019-04-12 17:24 | Emergency (ER) | payer OTHER ==
[2019-04-12 17:55] VITALS: TEMP 98.3; BMI 32.9
[2019-04-12] MEDS ORDERED: ALBUTEROL SO4 2.5/IPRATROPIUM 0.5 INH SOL 3 ML VIAL.NEB. NEB ONE ×2 (19:33→19:35)
[2019-04-12] MEDS ORDERED: amLODIPine BESYLATE 10 MG TABLET (FP) PO ONE (19:34)
[2019-04-12] MEDS ORDERED: amLODIPine BESYLATE 5 MG TABLET (FP) ONE (19:35)
[2019-04-12 20:06] VITALS: BP 138/78; PULSE 95
--- NOTE | 2019-04-12 20:25 | PDOC ---
Documentation entered by Zelda Esparza SCRIBE, acting as scribe for Yudy Lane MD. Yudy Lane MD: This documentation has been prepared by the allaibe, Zelda Esparza SCRIBE, under my direction and personally reviewed by me in its entirety. I confirm that the documentation accurately reflects all work, treatment, procedures, and medical decision making performed by me. History of Present Illness - General Chief Complaint: Blood Pressure Problem Stated Complaint: BLOOD PRESSURE History Source: Patient Exam Limitations: No Limitations - History of Present Illness Initial Comments: 04/12/19 20:15 teddy is a 58 year old male with a significant past medical history of HTN, HLD , diabetes, chronic right middle lobe collapse, and asthma who reports to the ED for evaluation of high blood pressure. He reports he has been compliant with his blood pressure medication. He reports not taking it today and has an associated headache. He reports going to his PCP on 04/08/2019 for cold like symptoms which has since resolved. He denies any recent fevers, chills, headache or dizziness. He denies any recent nausea, vomiting, diarrhea or constipation. He denies any recent chest pain or shortness of breath. He denies any recent dysuria, frequency, urgency or hematuria. PAST MEDICAL HISTORY: no significant history PAST SURGICAL HISTORY: no significant history FAMILY HISTORY: no pertinent history SOCIAL HISTORY: Pt lives with family and is employed. MEDICATIONS: reviewed ALLERGIES: As per nursing notes General: No fevers or chills, no weakness, no weight loss HEENT: No change in vision. No sore throat,. No ear pain CardioVascular: No chest pain or shortness of breath Respiratory:No cough, or wheezing. Gastrointestinal: no nausea, vomiting, diarrhea or constipation, No rectal bleeding Genitourinary: No dysuria, hematuria, or frequency Musculoskeletal: No joint or muscle pain or swelling Neurologic: + headache. No vertigo, dizziness or loss of consciousness Psychiatric: nor depression Skin: No rashes or easy bruising Endocrine: no increased thirst or abnormal weight change Allergic: no skin or latex allergy All other systems reviewed and normal General: Well-nourished well-developed individual, no acute distress HEENT: Throat: Normal, tonsils normal, no erythema or exudate Neck: Supple, no meningeal signs, no lymphadenopathy Eyes::Pupils equal reactive and round, extraocular motion intact Chest: Nontender to palpation Cardiac: S1-S2 normal, regular rate and rhythm, no murmurs rubs or gallops Respiratory:+tranciet rubs heard at the left base, resolved with coughing. Abdomen: Soft, nondistended, normal bowel sounds, nontender to palpation diffusely Extremities: Warm, dry, no cyanosis, clubbing, or edema Skin: No rashes Neuro: Alert and oriented x3, nonfocal exam, grossly intact, normal gait Psych: Normal mood and affect 04/12/19 20:22 Assessment and plan: This is a 58-year-old male who comes in complaining of a pounding sensation in his head secondary to elevated blood pressure. Patient is a somewhat anxious in regards to his symptoms. Patient otherwise says that he has a cough but recently finished a Z-Raphael. Patient denies any other complaints. EKG was done which shows normal sinus rhythm at a rate of 98 normal EKG Chest x-ray was done which shows some chronic lower lobe changes however nothing acute Patient given an extra dose of his blood pressure medication with improvement of his blood pressure to 138/78 and with his decreased blood pressure patient's heart rate also came down to a normal range Patient discharged and will follow-up with his primary care doctor. 04/12/19 20:24 Past History - Past Medical History Allergies/Adverse Reactions: Allergies Allergy/AdvReac Type Severity Reaction Status Date / Time No Known Drug Allergies Allergy Verified 01/17/18 10:58 DUST AdvReac Uncoded 01/17/18 10:58 Home Medications: Ambulatory Orders Acetaminophen 650 mg PO Q6H PRN 01/17/18 Albuterol Sulfate Inhaler - [Ventolin HFA Inhaler -] 2 inh PO TID 01/17/18 Amlodipine Besylate [Norvasc -] 5 mg PO HS 01/17/18 Atorvastatin Ca [Lipitor] 20 mg PO HS 01/17/18 Cyanocobalamin (Vitamin B-12) [Vitamin B-12] 1,000 mcg PO DAILY 01/17/18 Ibuprofen [Motrin -] 400 mg PO TID PRN 01/17/18 Fluticasone/Vilanterol [Breo Ellipta 200-25 Mcg INH] 1 each IH BID 04/12/19 Metformin HCl [Glucophage] 500 mg PO BID 04/12/19 Anemia: Yes Asthma: Yes Cancer: No Cardiac Disorders: No CVA: No COPD: No CHF: No Dementia: No Diabetes: Yes GI Disorders: No Disorders: No HTN: Yes Hypercholesterolemia: Yes Liver Disease: No Seizures: No Thyroid Disease: No Other medical history: LUNG EMPYEMA - Surgical History Abdominal Surgery: No Appendectomy: No Cardiac Surgery: No Cholecystectomy: No Lung Surgery: Yes (RIGHT THORACOTOMY) Neurologic Surgery: No Orthopedic Surgery: No - Psycho Social/Smoking Cessation Hx Smoking History: Never smoked Have you smoked in the past 12 months: No Hx Alcohol Use: No Drug/Substance Use Hx: No Substance Use Type: None Hx Substance Use Treatment: No *Physical Exam - Vital Signs Last Vital Signs Temp Pulse Resp BP Pulse Ox 98.3 F 105 H 18 160/90 97 04/12/19 17:26 04/12/19 17:26 04/12/19 17:26 04/12/19 17:26 04/12/19 17:26 ED Treatment Course - RADIOLOGY Radiology Studies Ordered: Category Date Time Status CHEST PA & LAT [RAD] Stat Radiology 04/12/19 19:33 Taken - Medications Given in the ED: ED Medications Discontinued Medications Generic Name Dose Route Start Last Admin Trade Name Freq PRN Reason Stop Dose Admin Albuterol/Ipratropium 1 amp 04/12/19 19:33 04/12/19 19:40 Duoneb - NEB 04/12/19 19:34 1 amp ONCE ONE Administration Amlodipine Besylate 10 mg 04/12/19 19:34 04/12/19 19:38 Norvasc - PO 04/12/19 19:35 10 mg ONCE ONE Administration Discharge - Discharge Information Problems reviewed: Yes Clinical Impression/Diagnosis: Essential hypertension, Cough Condition: Good Disposition: HOME - Admission No - Follow up/Referral Referrals: Elli Chaney MD [Primary Care Provider] - - Patient Discharge Instructions Patient Printed Discharge Instructions: How to Monitor Your Blood Pressure at Home, DI for High Blood Pressure Additional Instructions: If your blood pressure is elevated in the future go ahead and take a extra dose of your regular blood pressure medication wait 2 hours repeat your blood pressure. Return to the emergency department immediately with ANY new, persistent or worsening symptoms. Continue any medications as previously prescribed by your physician. You should follow up with your primary doctor as soon as possible regarding today's emergency department visit. . Please make sure your doctor reviews the results of your emergency evaluation. Thank you for coming to the Emergency Department today for your care. It was a pleasure to see you today. Please note that your evaluation is INCOMPLETE until you follow-up with your doctor. - Post Discharge Activity
--- NOTE | 2019-04-13 11:23 | EKG ---
Test Reason : Blood Pressure : / mmHG Vent. Rate : 098 BPM Atrial Rate : 098 BPM P-R Int : 140 ms QRS Dur : 088 ms QT Int : 356 ms P-R-T Axes : 050 010 026 degrees QTc Int : 454 ms NORMAL SINUS RHYTHM NORMAL ECG WHEN COMPARED WITH ECG OF 17-JAN-2018 11:46, NO SIGNIFICANT CHANGE WAS FOUND Confirmed by Matthias Hatfield MD ([id number]) on 04/13/2019 11:22:58 AM Referred By: DR HOLLAND Confirmed By:Matthias Hatfield MD
== END 2019-04-12 20:29 | disposition home or self-care (01) ==
LOC: FER 17:24
PROC: 3E0F7GC Introduction of Other Therapeutic Substance into Respiratory Tract, Via Natural or Artificial Opening (ICD-10-PCS; principal; 2019-04-12)
DX: R05 Cough (principal); I10 Essential (primary) hypertension; E78.00 Pure hypercholesterolemia, unspecified; J45.909 Unspecified asthma, uncomplicated
CPT/HCPCS: 71046-TC-FY; 93005; 94640; 99283-25

== ENCOUNTER 2021-04-30 00:32 | Emergency (ER) | payer OTHER ==
[2021-04-30 00:37] VITALS: BP 160/70; PULSE 108; TEMP 98; BMI 34.9
== END 2021-04-30 00:56 | disposition home or self-care (01) ==
LOC: FER 00:32
DX: I10 Essential (primary) hypertension (principal)
CPT/HCPCS: 99282-25

== ENCOUNTER 2021-07-11 04:46 | Day surgery (SDC) | payer OTHER ==
[2021-07-09 14:27] VITALS: BMI 34.9
[2021-07-11 09:58] VITALS: TEMP 97.8
[2021-07-11 10:34] VITALS: PULSE 97
[2021-07-11 11:33] VITALS: BP 125/69
== END 2021-07-11 11:00 | disposition home or self-care (01) ==
LOC: JASU-ENDO 04:46
PROVIDERS: ATTEND Internal Medicine Gastroenterology
PROC: 0DJD8ZZ Inspection of Lower Intestinal Tract, Via Natural or Artificial Opening Endoscopic (ICD-10-PCS; principal; 2021-07-11 11:30)
DX: K62.5 Hemorrhage of anus and rectum (principal); K64.8 Other hemorrhoids; E11.9 Type 2 diabetes mellitus without complications; I10 Essential (primary) hypertension
CPT/HCPCS: 82962

== ENCOUNTER 2022-01-16 20:38 | Emergency (ER) | payer OTHER ==
[2022-01-16] MEDS ORDERED: ALBUTEROL SO4 2.5/IPRATROPIUM 0.5 INH SOL 3 ML VIAL.NEB. NEB ONE ×2 (20:39→21:41)
[2022-01-16 20:49] VITALS: BP 144/85; PULSE 111; RESP 20; TEMP 98.7; BMI 34.9
[2022-01-16] MEDS ORDERED: guaiFENesin/CODEINE 10 ML UNIT-DOSE CUPS PO ONE (21:52)
[2022-01-16] MEDS ORDERED: guaiFENesin/CODEINE 10 ML UNIT-DOSE CUPS ONE (21:55)
== END 2022-01-16 21:59 | disposition home or self-care (01) ==
LOC: FER 20:38
PROC: 3E0F7GC Introduction of Other Therapeutic Substance into Respiratory Tract, Via Natural or Artificial Opening (ICD-10-PCS; principal; 2022-01-16)
DX: J20.9 Acute bronchitis, unspecified (principal)
CPT/HCPCS: 0241U-QW; 71046-TC-FY; 99284-25